=== PATIENT | male | born 1975 | race African-American/Black ===

== ENCOUNTER → 2020-02-12 13:03 | Outpatient (BNVA) | payer MEDICAID, SELFPAY | PROVIDERS: PCP Internal Medicine; Visit Provider Urology | DX: N13.2 Hydronephrosis with renal and ureteral calculous obstruction (principal) | CPT/HCPCS: 99202; 99204 ==

== ENCOUNTER 2020-03-02 06:10 | Day surgery (SDC) | payer MEDICAID, SELFPAY ==
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
--- NOTE | 2020-03-02 06:16 | XR_ITS ---
EXAMINATION: ABDOMEN 1 VIEW CLINICAL INFORMATION: Nephrolithiasis. COMPARISON: 01/14/2020. TECHNIQUE: A supine view of the abdomen is provided. FINDINGS: There are no dilated loops of small bowel. There are no air-fluid levels. There is a 2.1 cm calculus overlying the right kidney. The visualized lung bases are clear. The osseous structures are unremarkable. IMPRESSION: 2.1 cm calculus overlying the right kidney. Unremarkable bowel gas pattern.
[2020-03-02 06:53] VITALS: BMI 64.0
[2020-03-02 06:59] VITALS: BP 159/86; PULSE 101; RESP 18; TEMP 37.4; O2SAT 96
[2020-03-02] MEDS: levoFLOXacin 500 MG TABLET PO (07:08)
[2020-03-02] MEDS: Lactated Ringers 1,000 ML 100 ML IVCONT (07:24)
--- NOTE | 2020-03-02 07:27 | MHC.SHP ---
Pre-Procedural Eval Section A The patient is an INPATIENT: No Changes since office visit: No Cold of Flu in the past 2 weeks, No New Medical Problems, No Changes in Medication and No Patient answered all questions The History & Physical has been completed within 30 days and I have reviewed it.: Yes Section B Chief Complaint: right kidney calculus Allergies: Allergies Allergy/AdvReac Type Severity Reaction Status Date / Time No Known Allergies Allergy Unverified 01/28/20 19:42 [No Known Allergies*] Plan Patient has been examined and remains a candidate for the planned procedure
--- NOTE | 2020-03-02 07:55 | PM.OP ---
Brief Operative Note Date of procedure: 03/02/20 Pre-op diagnosis: Right 2cm stone Post-op diagnosis: same Procedure: right ESWL and right stent placement Implants: 6 Fr x 24 cm stent Surgeon: Jaren Pettit MD Anesthesia: GLMA Estimated blood loss (mL): 0 Pathology: none sent Condition: stable Disposition: same day
[2020-03-02 08:16] VITALS: BP 111/74; PULSE 86; RESP 16; TEMP 36.9; O2SAT 94
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
[2020-03-02 08:21] VITALS: BP 133/88; PULSE 97; RESP 16; O2SAT 95
[2020-03-02 08:26] VITALS: BP 153/98; PULSE 97; RESP 16; O2SAT 94
[2020-03-02 08:31] VITALS: BP 124/85; PULSE 95; RESP 16; O2SAT 95
[2020-03-02] MEDS: Acetaminophen 325 MG TABLET 650 MG PO (08:37)
[2020-03-02] MEDS: oxyCODONE HCl Immed Release 5 MG TABLET PO (08:38)
[2020-03-02 08:46] VITALS: BP 131/84; PULSE 88; RESP 18; TEMP 36.9; O2SAT 95
--- NOTE | 2020-03-02 09:20 | HO.POSTANES ---
Post Anesthesia Evaluation Post Anesthesia Evaluation Vital Signs: Vital Signs Temp Pulse Resp BP Pulse Ox 03/02/20 08:46 98.4 F 88 18 131/84 95 03/02/20 08:31 95 16 124/85 95 03/02/20 08:26 97 16 153/98 H 94 03/02/20 08:21 97 16 133/88 95 03/02/20 08:16 98.4 F 86 16 111/74 94 03/02/20 06:59 99.3 F 101 H 18 159/86 H 96 Anesthesia: General LMA Mental Status: Awake Pain Control: Satisfactory Nausea/Vomiting: None Hydration: Adequate Anesthesia-Related Issues: No Anes. Related Issues
== END 2020-03-02 09:22 | disposition home or self-care (01) ==
PROVIDERS: PCP Internal Medicine; Visit Provider Urology
PROC: (CPT 50590; principal; 2020-03-02 07:30)
DX: N13.2 Hydronephrosis with renal and ureteral calculous obstruction (principal); I10 Essential (primary) hypertension; Z89.512 Acquired absence of left leg below knee; Z89.511 Acquired absence of right leg below knee; Z87.891 Personal history of nicotine dependence; Z79.899 Other long term (current) drug therapy
CPT/HCPCS: 50590; 52332; 74018; C1769; C2617; J1580; J1885; J2405; J3010

== ENCOUNTER → 2020-03-23 14:41 | Outpatient (BNVA) | payer MEDICAID, SELFPAY | PROVIDERS: PCP Internal Medicine; Visit Provider Nurse Practitioner | DX: Z76.89 Persons encountering health services in other specified circumstances (principal) ==

== ENCOUNTER → 2020-06-03 12:49 | Outpatient (BNVA) | payer MEDICAID, SELFPAY | PROVIDERS: PCP Internal Medicine; Visit Provider Urology ==

== ENCOUNTER 2020-06-06 07:52 | Day surgery (SDC) | payer MEDICAID, SELFPAY ==
[2020-06-06 09:42] VITALS: BP 132/88; PULSE 78; RESP 18; TEMP 36.6; O2SAT 94; BMI 30.7
[2020-06-06] MEDS: levoFLOXacin 500 MG TABLET PO (09:58)
--- NOTE | 2020-06-06 10:21 | PM.OP ---
Brief Operative Note Date of Service: 06/06/20 Pre-op diagnosis: Retained ureteric stent Post-op diagnosis: same Procedure: Cysto stent removal Surgeon: Jaren Pettit MD Anesthesia: MAC Estimated blood loss (mL): 0 Pathology: none sent Condition: stable Disposition: same day
--- NOTE | 2020-06-06 10:22 | P.HPSUR_ITS ---
Pre-Procedural Eval Section B Chief Complaint: kidney stone Details of Present Illness: Prior ESWL on right side with indwelling stent. This happen in February Presents for stent removal today Relevant Family History (Specify if Yes): No Relevant Social History: None Present Medications: None Medical History: No relevant PMH History of Previous Operations: Relevant previous surgery/procedure and date(s) Allergies: Allergies Allergy/AdvReac Type Severity Reaction Status Date / Time No Known Allergies Allergy Verified 06/06/20 09:16 [No Known Allergies*] Review of Systems Sugical H&P ROS: Negative: Constitution, Cardiovascular, Respiratory, Neuro logical, Psychiatric, Hem-Onc, Allergic/Immunologic, Gastrointestinal, Genitourinary, Musculoskeletal, Integumentary, Endocrine and Eyes/Ears/Nose/Throat Exam Surgical H&P Exam: Normal: HEENT, Normal: Heart, Normal: Lungs, Normal: Extremities, Normal: Abdomen, Normal: Skin and Normal: Neurological Plan Diagnosis/Plan: Unchanged I have reviewed the history and physical and performed a pertinent physical examination on my patient. No changes have occurred unless specified. Cystoscopy removal of right stent
--- NOTE | 2020-06-06 10:48 | W.PM.OPN ---
Operative Note Operative Note Date of Service: 06/06/20 Narrative: PreOperative Diagnosis: Renal stone with retained right stent Post Operative Diagnosis: Renal stone with retained right stent Procedure: Cystoscopy with right stent Surgeon: Dr Jaren Pettit Anesthesia: Sedation Indications for procedure: This is a 44-year-old male. Underwent ESWL for 2 cm stone back in February however he did not follow-up. He presented to the office in is here for stent removal today. 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 anesthesia was administered per protocol. He was prepped and draped in sterile fashion. A safety pause time-out performed Flexible cystoscope was inserted per urethra. No abnormality noted in the anterior posterior urethra. Bladder was entered. Stent was visible in position on right side. There was some bladder debris. Stent was grasped and removed. He tolerated procedure well was transferred back to the recovery area Pathology: None Drains: None
[2020-06-06 10:50] VITALS: BP 114/66; PULSE 78; RESP 16; TEMP 36.6; O2SAT 92
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
[2020-06-06 11:05] VITALS: BP 123/79; PULSE 74; RESP 18; O2SAT 98
[2020-06-06 11:20] VITALS: BP 114/73; PULSE 72; RESP 16; O2SAT 98
[2020-06-06 11:35] VITALS: BP 122/76; PULSE 70; RESP 18; O2SAT 99
[2020-06-06 11:50] VITALS: BP 127/78; PULSE 77; RESP 16; O2SAT 99
--- NOTE | 2020-06-06 12:14 | HO.POSTANES ---
Post Anesthesia Evaluation Post Anesthesia Evaluation Vital Signs: Vital Signs Temp Pulse Resp BP Pulse Ox 06/06/20 11:50 97.9 F 77 16 127/78 99 06/06/20 11:35 70 18 122/76 99 06/06/20 11:20 72 16 114/73 98 06/06/20 11:05 74 18 123/79 98 06/06/20 10:50 97.9 F 78 16 114/66 92 06/06/20 09:42 97.9 F 78 18 132/88 94 Anesthesia: Monitored Mental Status: Awake Pain Control: Satisfactory Nausea/Vomiting: None Hydration: Adequate Anesthesia-Related Issues: No Anes. Related Issues
== END 2020-06-06 12:37 | disposition home or self-care (01) ==
PROVIDERS: PCP Internal Medicine; Visit Provider Urology
PROC: (CPT 52310; principal; 2020-06-06 10:20)
DX: N20.0 Calculus of kidney (principal); Z96.0 Presence of urogenital implants; Z89.512 Acquired absence of left leg below knee; Z89.511 Acquired absence of right leg below knee; J45.909 Unspecified asthma, uncomplicated; I10 Essential (primary) hypertension; F32.9 Major depressive disorder, single episode, unspecified; B19.20 Unspecified viral hepatitis C without hepatic coma; F17.290 Nicotine dependence, other tobacco product, uncomplicated; F11.20 Opioid dependence, uncomplicated; Z79.899 Other long term (current) drug therapy
CPT/HCPCS: 52310

== ENCOUNTER 2020-06-14 17:36 | Inpatient (IN) | payer MEDICAID, SELFPAY ==
--- NOTE | ~2020-06-14 | FL_ITS ---
EXAMINATION: XR FLUOROSCOPY WITH IMAGES CLINICAL INFORMATION: CYSTOSCOPY, URETEROSCOPY, RETRO, LASER (RIGHT) COMPARISON: CT abdomen pelvis 06/14/2020 TECHNIQUE: Fluoroscopy performed by Dr. Pettit. Fluoroscopy time: 77.3 seconds DAP: 31.8 mGy Images: 2 FINDINGS: Focal spot view over the kidney and another pelvis demonstrates a double-J stent in the right renal collecting system FL/FL guidance in OR IMPRESSION: Double-J stent in right collecting system.
[2020-06-14 18:24] VITALS: BP 138/79; PULSE 114; RESP 20; O2SAT 98; BMI 27.8
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
[2020-06-14 18:54] LABS: MANUAL DIFF FLAG NO
[2020-06-14 18:56] LABS: Basophils Percent Auto 0.1 % (0-2); Eosinophils Percent Auto 0.1 % (0-4); Hematocrit 40.2 % (42-52); Hemoglobin 12.9 g/dl (14.0-18.0); Imm Gran Pct Auto 0.6 % (0.0-0.4); Lymphocytes Absolute Auto 0.8 X10*3/uL (1.2-4.9); Lymphocytes Percent Auto 4.9 % (20-40); Mean Corpuscular HGB Conc 32.1 g/dl (31.0-36.0); Mean Corpuscular Hemoglobin 25.7 pg (27.0-33.0); Mean Corpuscular Volume 80.1 fL (80-98); Mean Platelet Volume 9.7 fL (9.4-12.4); Monocytes Absolute Auto 0.7 X10*3/uL (0.1-1.2); Monocytes Percent Auto 4.5 % (2-11); Neutrophils Absolute Auto 14.9 X10*3/uL (2.0-8.3); Neutrophils Percent Auto 89.8 % (45-73); Platelet Count 315 X10*3/uL (160-400); Red Blood Count 5.02 X10*6/uL (4.60-5.80); Red Cell Distribution Width 14.4 % (11.0-16.0); White Blood Count 16.6 X10*3/uL (4.8-10.8)
[2020-06-14 19:01] LABS: INTERNATIONAL NORM RATIO 1.4 (0.9-1.1); Prothrombin Time 17.1 SEC (10.8-13.0)
[2020-06-14 19:04] LABS: Partial Thromboplastin Time 36.1 SEC (24.1-38.0)
[2020-06-14 19:23] LABS: Alanine Aminotransferase 36 U/L (0-40); Albumin Level 4.3 g/dL (3.5-5.0); Alkaline Phosphatase 102 U/L (39-117); Anion Gap 16 (12-20); Aspartate Amino Transferase 22 U/L (5-37); Bilirubin Direct 0.2 mg/dL (0.0-0.5); Bilirubin Total 0.5 mg/dL (0.0-1.0); Blood Urea Nitrogen 13 mg/dL (9-16); Calcium 9.1 mg/dL (8.4-10.2); Carbon Dioxide 24 mmol/L (22-29); Chloride 100 mmol/L (96-108); Creatinine Clr Calc Pharmacy 96.4; Estimated Glomerular Filt Rate > 60; Glucose Random 155 mg/dL (60-115); Lipase 13 U/L (8-78); Potassium 3.6 mmol/L (3.3-5.1); Sodium 136 mmol/L (135-145); Total Protein 8.5 g/dL (6.5-8.0)
--- NOTE | 2020-06-14 20:40 | PC.NURSE ---
c/o left flank pain. feels like a kidney stone . had a kidney proceedure on .
[2020-06-14 20:41] LABS: Basophils Percent Auto 0.1 % (0-2); Hematocrit 39.6 % (42-52); Imm Gran Abs Auto 0.12 X10*3/uL (0.00-0.03); Imm Gran Pct Auto 0.6 % (0.0-0.4); Lymphocytes Absolute Auto 0.9 X10*3/uL (1.2-4.9); Lymphocytes Percent Auto 4.3 % (20-40); MANUAL DIFF FLAG SCAN; Mean Corpuscular HGB Conc 32.8 g/dl (31.0-36.0); Mean Corpuscular Hemoglobin 26.3 pg (27.0-33.0); Mean Platelet Volume 9.3 fL (9.4-12.4); Monocytes Absolute Auto 1.5 X10*3/uL (0.1-1.2); Monocytes Percent Auto 7.6 % (2-11); Neutrophils Absolute Auto 17.7 X10*3/uL (2.0-8.3); Neutrophils Percent Auto 87.4 % (45-73); Platelet Count 315 X10*3/uL (160-400); Red Blood Count 4.95 X10*6/uL (4.60-5.80); Red Cell Distribution Width 14.2 % (11.0-16.0); SCAN SMEAR FLAG 1; White Blood Count 20.3 X10*3/uL (4.8-10.8)
--- NOTE | 2020-06-14 20:59 | CT_ITS ---
EXAMINATION: CT ABDOMEN AND PELVIS WITHOUT CONTRAST CLINICAL INFORMATION: R flank pain, s/p stent removal . COMPARISON: 02/25/2019. TECHNIQUE: Multidetector volumetric imaging was performed from the superior aspect of the liver through the pubic symphysis without contrast per renal stone protocol. Sagittal and coronal reformatted images were obtained on the technologist workstation. This CT examination was performed using dose optimization techniques as appropriate, variously including the following: *Automated exposure control *Adjustment of mA and/or kV according to patient size (this includes techniques or standardized protocols for targeted exams where dose is matched to indication/reason for exam; i.e. extremities or head) *Use of iterative reconstruction technique DLP: 820 mGy-cm. FINDINGS: LUNG BASES: Minimal dependent atelectasis. LIVER, GALLBLADDER, BILIARY TREE: The non-contrast liver is normal in size, shape, and attenuation. No focal hepatic lesion or biliary ductal dilatation is present. The gallbladder is unremarkable with no evidence of radiopaque gallstones, gallbladder wall thickening, or obvious pericholecystic inflammatory changes. PANCREAS: Unremarkable. SPLEEN: Unremarkable. ADRENAL GLANDS: Unremarkable. KIDNEYS AND URETERS: There is right-sided hydronephrosis, hydroureter, and perinephric stranding. Dense calcification seen within the proximal right ureter near the right UPJ. This constellation measures 1.6 cm in length and approximately 0.8 cm in diameter. This measures up to 1258 Hounsfield units and is approximately 14 cm deep to the posterior skin surface. Additional intrarenal calculi seen within the right kidney including a 1.4 cm lower pole calculi and a 0.2 cm midpole calculi. Nonobstructing 4 mm intrarenal calculi in the contralateral left lower pole BLADDER: Decompressed and otherwise unremarkable GASTROINTESTINAL TRACT: Colon is mostly decompressed. Small bowel unremarkable. ABDOMINAL WALL: No significant hernia is appreciated. LYMPHOVASCULAR STRUCTURES: No lymphadenopathy. The aorta is unremarkable.. PELVIC VISCERA: Unremarkable. OSSEUS STRUCTURES: Unremarkable. CT/CT abdomen pelvis wo con IMPRESSION: Structure changes to the right kidney described above. There is a large calcification within the proximal right ureter near the expected right ureteropelvic junction. On the prior CT scan this calculi was in the renal pelvis and has now moved distally. Ureter distal to the stone is mildly prominent but I do not appreciate any more distal calculi. Additional nonobstructing intrarenal calculi bilaterally.
[2020-06-14 21:00] LABS: Alanine Aminotransferase 36 U/L (0-40); Albumin Level 4.4 g/dL (3.5-5.0); Alkaline Phosphatase 100 U/L (39-117); Anion Gap 15 (12-20); Aspartate Amino Transferase 22 U/L (5-37); Bilirubin Direct 0.3 mg/dL (0.0-0.5); Bilirubin Total 0.6 mg/dL (0.0-1.0); Blood Urea Nitrogen 13 mg/dL (9-16); Carbon Dioxide 26 mmol/L (22-29); Chloride 100 mmol/L (96-108); Creatinine Clr Calc Pharmacy 96.4; Estimated Glomerular Filt Rate > 60; Glucose Random 127 mg/dL (60-115); Lipase 14 U/L (8-78); Potassium 3.6 mmol/L (3.3-5.1); Sodium 137 mmol/L (135-145); Total Protein 8.5 g/dL (6.5-8.0)
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
[2020-06-14 21:03] LABS: SLIDE REVIEW VERIFIED
[2020-06-14] MEDS: Ketorolac Tromethamine 30 MG/ML VIAL IVPUSH (21:30)
[2020-06-14] MEDS: 0.9 % Sodium Chloride 1,000 ML 999 ML IVCONT ×3 (21:30→22:47)
[2020-06-14] MEDS: ondansetron HCL 4 MG/2 ML VIAL IVPUSH (21:30)
[2020-06-14] MEDS: cefTRIAXone sodium 1 GM in 0.9 % Sodium Chloride 50 ML IV (22:00)
[2020-06-14 22:01] VITALS: TEMP 38.7
[2020-06-14] MEDS: Acetaminophen 325 MG TABLET 650 MG PO (22:13)
[2020-06-14 23:01] LABS: Appearance Urine CLEAR; Color Urine YELLOW; Glucose Urine UA NEG (NEG); Leukocyte Esterase Urine 1+ (NEG); Nitrite Urine NEG (NEG); UACC Culture Trigger YES; Urine Blood TRACE (NEG); Urine Ketones NEG (NEG); Urine Protein NEG (NEG-TRACE)
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
[2020-06-14 23:10] LABS: Bacteria Urine 1+ /LPF; RBC Urine 0-2 /HPF (0); Squamous Epithelial Cell Urine TRACE /LPF
[2020-06-14 23:14] LABS: COVID-19 Test Negative (Negative); IDNOW Serial# 9DD0AD1C
[2020-06-14 23:58] VITALS: BP 120/76; PULSE 93; RESP 18; O2SAT 96
[2020-06-14] MEDS: HYDROmorphone HCl 0.5 MG/0.5 ML SYRINGE SUBCUT (23:59)
[2020-06-15] VITALS (9 sets, daily range): BP systolic 116–146; BP diastolic 67–89; PULSE 85–101; RESP 14–18; TEMP 36.6–37.7; O2SAT 87–97
[2020-06-15] MEDS: 0.9 % Sodium Chloride Flush 3 ML SYRINGE IVFLUSH ×2 (00:04→16:45)
[2020-06-15] MEDS: Dextrose 5 % and 0.9 % NaCl 1,000 ML 100 ML IVCONT ×3 (00:33→20:19)
--- NOTE | 2020-06-15 02:22 | PC.NURSE ---
PT HAD STATED TO ED MD THAT HE DOES NOT WANT OPIATES, BECAUSE HE IS ON METHADONE. HOSPITALIST ORDERED DILAUDID AND PT WAS ADMINISTERED 0.5 MG. WILL CALL HOSPITALIST TO ASK TO CANCEL ORDER.
[2020-06-15] MEDS: Ketorolac Tromethamine 15 MG/ML VIAL IV ×4 (04:06→23:20)
--- NOTE | 2020-06-15 05:21 | PC.NURSE ---
PT HAD ONE EPISODE OF VOMITING APROX 1 HOUR AGO, SMALL AMOUNT OF WATER. PT NOW ASKING FOR WATER, GIVEN ICE CHIPS. BOTH LOWER LEG PROSTHETICS AND PT'S OWN WC IN ROOM WITH HIM.
--- NOTE | 2020-06-15 06:37 | PC.NURSE ---
PT ASKING FOR HIS METHADONE, HOSPITALIST DID NOT INCLUDE ON MAR.
[2020-06-15 07:19] LABS: Basophils Percent Auto 0.1 % (0-2); Hematocrit 36.2 % (42-52); Hemoglobin 11.9 g/dl (14.0-18.0); Imm Gran Pct Auto 2.7 % (0.0-0.4); Lymphocytes Absolute Auto 1.6 X10*3/uL (1.2-4.9); Lymphocytes Percent Auto 7.1 % (20-40); MANUAL DIFF FLAG SCAN; Mean Corpuscular HGB Conc 32.9 g/dl (31.0-36.0); Mean Corpuscular Hemoglobin 26.4 pg (27.0-33.0); Mean Corpuscular Volume 80.4 fL (80-98); Mean Platelet Volume 9.9 fL (9.4-12.4); Monocytes Absolute Auto 1.5 X10*3/uL (0.1-1.2); Monocytes Percent Auto 6.9 % (2-11); Neutrophils Absolute Auto 18.3 X10*3/uL (2.0-8.3); Neutrophils Percent Auto 83.2 % (45-73); Platelet Count 284 X10*3/uL (160-400); Red Cell Distribution Width 14.4 % (11.0-16.0); SCAN SMEAR FLAG 1
[2020-06-15 07:39] LABS: Anion Gap 12 (12-20); Blood Urea Nitrogen 10 mg/dL (9-16); Carbon Dioxide 25 mmol/L (22-29); Chloride 105 mmol/L (96-108); Creatinine Clr Calc Pharmacy 117.9; Estimated Glomerular Filt Rate > 60; Glucose Random 118 mg/dL (60-115); Potassium 3.4 mmol/L (3.3-5.1); Sodium 139 mmol/L (135-145)
[2020-06-15 07:48] LABS: Calcium 8.1 mg/dL (8.4-10.2)
--- NOTE | 2020-06-15 08:18 | PC.NURSE ---
report taken from [facility] pt here for urological issues. admitted pt, sitting up in stretcher, appears to be in pain. asking for methadone, dose confirmed w clinic, confirmed by pharmacy ordered by physician. pt given po methadone, tolerating po w/o issue. wctm.
[2020-06-15] MEDS: traMADoL HCL 50 MG TABLET PO ×2 (08:39→14:59)
[2020-06-15 09:06] LABS: SLIDE REVIEW VERIFIED
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
[2020-06-15] MEDS: amLODIPine Besylate 10 MG TABLET PO (10:41)
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
--- NOTE | 2020-06-15 11:30 | PC.NURSE ---
INTRODUCED SELF TO PT, APPEARS IMPAIRED, SLIGHTLY SOMNOLENT THOUGH EASILY ROUSED. PLACED ON 2L O2 AFTER 87% ON RA. RR WNL. MEDICATED 3 HRS AGO WITH MTD. WILL CONTINUE TO MONITOR.
--- NOTE | 2020-06-15 14:48 | MHC.CM.PN ---
EMR REVIEWED, PT ADMITTED W/R SIDED FLANK PAIN & NV, PT TO HAVE URETEROSCOPY AND STONE REMOVAL ON 06/16/20, CM MET WITH [employer] TEAM LEAD & PT WHO IS ALERT AND ORIENTED AND REPORTS HE LIVES WITH HIS SISTER WHO IS HIS [employer], PT DOES NEED ASSISTANCE AT HOME AND REPORTS HIS SISTER DOES EVERYTHING FOR HIM, PT ALSO REPORTS HE HAS A VNA THROUGH HIS INSURANCE HOWEVER DOES NOT RECALL THE NAME OF THE VNA SERVICE, PT REPORTS THE ONLY DME HE HAS AT HOME IS A WHEELCHAIR, PT ABLE TO VERIFY PCP AND PHARMACY, PT REPORTS HIS SISTER IS HIS HEALTHCARE PROXY HOWEVER DOES NOT NO WHERE TO LOCATE A COPY, CM WILL CONTACT PCP FOR VNA INFORMATION AND POSSIBLE HCP ON FILE. DISCHARGE PLAN: HOME W/RESUMPTION OF VNA AND [employer] HRS THROUGH [facility], SISTER TO TRANSPORT PT. SISTER- ROXANNE [phone] PCP- DR LES BRAUN
--- NOTE | 2020-06-15 15:06 | PC.NURSE ---
RECEIVED CALL FROM PTS NIECE, SHE REQUESTED THAT HE BE GIVEN LUNCH. PT HAS EATEN TODAY, AND HAS BEEN ASLEEP FOR MOST OF THIS MORNING. TALKED WITH PT, HE REQUESTED THAT WE NOT ACCEPT CALLS FROM HIS NIECE.
--- NOTE | 2020-06-15 15:14 | MHC.CM.PN ---
PER PT'S PCP OFFICE PT HAS [facility] FOR [facility] SERVICES, MESSAGE LEFT WITH [facility] TO [facility] AND SERVICES PT CURRENTLY HAS. PCP DOES NOT HAVE A HCP ON FILE.
--- NOTE | 2020-06-15 15:56 | MHC.CM.PN ---
REFERRAL SENT FOR RESUMPTION OF CARE WITH [facility].
[2020-06-15] MEDS: cefTRIAXone sodium 1 GM in 0.9 % Sodium Chloride 50 ML IV (20:19)
[2020-06-16] VITALS (15 sets, daily range): BP systolic 113–155; BP diastolic 69–90; PULSE 77–122; RESP 16–18; TEMP 36.3–38; O2SAT 92–99
[2020-06-16] MEDS: Sennosides 8.6 MG TABLET PO (00:02)
[2020-06-16] MEDS: Acetaminophen 325 MG TABLET 650 MG PO ×2 (04:20→18:24)
[2020-06-16] MEDS: Ketorolac Tromethamine 15 MG/ML VIAL IV ×3 (05:49→19:33)
[2020-06-16] MEDS: Dextrose 5 % and 0.9 % NaCl 1,000 ML 100 ML IVCONT (05:54)
[2020-06-16] MEDS: amLODIPine Besylate 10 MG TABLET PO (09:18)
[2020-06-16] MEDS: 0.9 % Sodium Chloride Flush 3 ML SYRINGE IVFLUSH (09:20)
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
[2020-06-16 10:25] LABS: Hematocrit 35.6 % (42-52); Hemoglobin 11.5 g/dl (14.0-18.0); Mean Corpuscular HGB Conc 32.3 g/dl (31.0-36.0); Mean Corpuscular Hemoglobin 26.2 pg (27.0-33.0); Mean Corpuscular Volume 81.1 fL (80-98); Mean Platelet Volume 9.5 fL (9.4-12.4); Platelet Count 243 X10*3/uL (160-400); Red Blood Count 4.39 X10*6/uL (4.60-5.80); Red Cell Distribution Width 14.6 % (11.0-16.0); White Blood Count 16.1 X10*3/uL (4.8-10.8)
[2020-06-16] MEDS: Milk of Magnesia 30 ML ORAL.SUSP PO (12:49)
--- NOTE | 2020-06-16 13:08 | PM.UROPN ---
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 procedure Will have right-sided ureteroscopy laser lithotripsy this afternoon Questions answered Physical Exam Vital Signs: Vital Signs: Last Vital Signs Temp 98 F 06/16/20 11:53 Pulse 87 06/16/20 11:53 Resp 17 06/16/20 11:53 BP 133/78 06/16/20 11:53 Pulse Ox 94 06/16/20 11:53 Body Mass Index 27.8 Const: General: cooperative, healthy appearing, comfortable and no acute distress Nutritional Appearance: average body habitus Orientation/consciousness: oriented to person, oriented to place and oriented to time Eyes: General: appearance normal, both eyes and all related structures Chest: Chest palpation & inspection: normal inspection of the chest Resp: Effort & Inspection: normal respiratory effort Cardio: Rate: regular rate GI: Inspection: Yes normal to inspection Skin: Hair: normal Neuro: General: oriented to person, oriented to place and oriented to time Extrem: General: Yes normal to inspection Urology Results Labs CBC & Chem 7: 06/16/20 10:03 06/15/20 06:49 Labs: Laboratory Results - last 24 hr 06/16/20 10:03 WBC 16.1 H RBC 4.39 L Hgb 11.5 L Hct 35.6 L MCV 81.1 MCH 26.2 L MCHC 32.3 RDW 14.6 Plt Count 243 MPV 9.5 Absolute Nucleated RBC 0.000 Nucleated RBC % (auto) 0.0 Progress Note: A&P Assessment and plan (1) Kidney stone: Status: Acute (2) Hydronephrosis: Status: Acute Fall Risk Details Current Medications: Current Medications Generic Name Dose Route Start Last Admin Trade Name Freq PRN Reason Stop Dose Admin Acetaminophen 650 mg 06/16/20 04:08 06/16/20 04:20 Acetaminophen 325 Mg Tablet PO 650 mg Q6H PRN Administration Pain, Mild (Pain Scale 1-3) Amlodipine Besylate 10 mg 06/15/20 09:00 06/16/20 09:18 Amlodipine Besylate 10 Mg Tablet PO 10 mg DAILY ANDREW Administration Protocol Dextrose/Sodium Chloride 1,000 mls @ 100 mls/hr 06/14/20 23:15 06/16/20 05:54 D5ns IVCONT 100 mls/hr .Q10H ANDREW Administration Ceftriaxone Sodium 1 gm/ 50 mls @ 100 mls/hr 06/15/20 21:00 06/15/20 21:17 Sodium Chloride IV Infused Q24H ANDREW Infusion Ketorolac Tromethamine 15 mg 06/15/20 02:55 06/16/20 12:49 Ketorolac Tromethamine 15 Mg/Ml Vial IV 15 mg Q6H PRN Administration Breakthrough Pain Magnesium Hydroxide 30 ml 06/16/20 12:24 06/16/20 12:49 Milk Of Magnesia 30 Ml Oral.Susp PO 30 ml BID PRN Administration Constipation Methadone HCl 90 mg 06/16/20 09:00 06/16/20 09:18 Methadone Hcl 1 Mg/0.1 Ml Oral.Conc PO 90 mg DAILY ANDREW Administration Polyethylene Glycol 17 gm 06/16/20 12:24 Polyethylene Glycol 3350 17 Gm Powd.Pack PO DAILY PRN Constipation Senna 8.6 mg 06/15/20 23:50 06/16/20 00:02 Sennosides 8.6 Mg Tablet PO 8.6 mg Q24H PRN Administration Constipation Sodium Chloride 3 ml 06/15/20 00:00 06/16/20 09:20 0.9 % Sodium Chloride Flush 3 Ml Syringe IVFLUSH 3 ml QSHIFT ANDREW Administration Tramadol HCl 50 mg 06/15/20 08:00 06/15/20 14:59 Tramadol Hcl 50 Mg Tablet PO 50 mg Q6H PRN Administration Pain, Severe (Pain Scale 7-10) Time Spent With Patient Time: Total time spent is greater than 50% in coordination of care (as documented) at patient's floor/unit and/or counseling patient: Time with patient: 15 - 24 minutes
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
--- NOTE | 2020-06-16 15:54 | MHC.SHP ---
Pre-Procedural Eval Section A The patient is an INPATIENT: Yes Changes since office visit: No Cold of Flu in the past 2 weeks, No New Medical Problems, No Changes in Medication and No Patient answered all questions The History & Physical has been completed within 30 days and I have reviewed it.: Yes Section B Chief Complaint: Pyelonephritis Allergies: Allergies Allergy/AdvReac Type Severity Reaction Status Date / Time No Known Allergies Allergy Verified 06/06/20 09:16 [No Known Allergies*] Plan Diagnosis/Plan: Unchanged I have reviewed the history and physical and performed a pertinent physical examination on my patient. No changes have occurred unless specified. Right retrograde, ureteroscopy, laser stent
--- NOTE | 2020-06-16 16:59 | PM.OP ---
Brief Operative Note Date of Service: 06/16/20 Pre-op diagnosis: Right proximal ureteric stones Post-op diagnosis: same Procedure: 1. Cystoscopy right retrograde 2. Ureteroscopy laser lithotripsy stone basketing of right ureteric stones 3. Ureteroscopy stone basketing of right renal stone 4 right stent placement Implants: Six Yoruba by 22 cm double-J stent Surgeon: Jaren Pettit MD Anesthesia: GLMA Estimated blood loss (mL): 0 Pathology: other (stones) Condition: stable Disposition: same day
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
[2020-06-16] MEDS: Gentamicin Sulfate/NaCl 80 MG/100 ML PIGGYBACK 100 MG IV (18:44)
[2020-06-16] MEDS: cefTRIAXone sodium 1 GM in 0.9 % Sodium Chloride 50 ML IV (20:51)
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
[2020-06-17] MEDS: Dextrose 5 % and 0.9 % NaCl 1,000 ML 100 ML IVCONT ×2 (03:02→13:21)
--- NOTE | 2020-06-17 06:30 | PC.NURSE ---
while pt was voiding this morning a piece of black thread came out of his meatus that was about 10 cm long. pt was worried about it and asked me to cut it because it was getting caught in his boxers when he moved. i cut about 7 cm off, with 2-3 cm still left hanging out. [facility] message sent to dr. celis. dr celis is aware.
[2020-06-17 07:35] VITALS: BP 126/76; PULSE 84; RESP 18; TEMP 36.4; O2SAT 94
[2020-06-17] MEDS: Ketorolac Tromethamine 15 MG/ML VIAL IV ×2 (07:48→19:31)
[2020-06-17] MEDS: 0.9 % Sodium Chloride Flush 3 ML SYRINGE IVFLUSH ×2 (07:48→21:10)
[2020-06-17] MEDS: amLODIPine Besylate 10 MG TABLET PO (07:48)
[2020-06-17 08:17] LABS: Hematocrit 35.8 % (42-52); Hemoglobin 11.5 g/dl (14.0-18.0); Mean Corpuscular HGB Conc 32.1 g/dl (31.0-36.0); Mean Corpuscular Hemoglobin 25.9 pg (27.0-33.0); Mean Corpuscular Volume 80.6 fL (80-98); Platelet Count 254 X10*3/uL (160-400); Red Blood Count 4.44 X10*6/uL (4.60-5.80); Red Cell Distribution Width 14.7 % (11.0-16.0); White Blood Count 18.4 X10*3/uL (4.8-10.8)
[2020-06-17 08:39] LABS: Anion Gap 12 (12-20); Blood Urea Nitrogen 13 mg/dL (9-16); Calcium 8.4 mg/dL (8.4-10.2); Carbon Dioxide 26 mmol/L (22-29); Chloride 102 mmol/L (96-108); Creatinine Clr Calc Pharmacy 127.4; Estimated Glomerular Filt Rate > 60; Glucose Random 144 mg/dL (60-115); Potassium 3.8 mmol/L (3.3-5.1); Sodium 136 mmol/L (135-145)
--- NOTE | 2020-06-17 09:25 | HO.POSTANES ---
Post Anesthesia Evaluation Post Anesthesia Evaluation Vital Signs: Vital Signs Temp Pulse Resp BP Pulse Ox 06/17/20 07:35 97.6 F 84 18 126/76 94 06/16/20 23:30 97.4 F 80 16 113/69 92 Anesthesia: General Mental Status: Awake Pain Control: Satisfactory Nausea/Vomiting: None Hydration: Adequate Anesthesia-Related Issues: No Anes. Related Issues
--- NOTE | 2020-06-17 10:19 | MHC.IC ---
Notified by Microbiology lab that patient has potential CRE in blood and urine. Patient placed on Contact Precautions. Spoke with WINIFRED Roger and explained results and need for strict contact isolation due to resistance of this pathogen.
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
[2020-06-17 10:47] VITALS: BP 129/65; PULSE 81; RESP 18; TEMP 36.6; O2SAT 96
[2020-06-17] MEDS: Docusate Sodium 100 MG CAPSULE PO ×2 (11:02→21:10)
[2020-06-17] MEDS: bisacodyL 5 MG TABLET.DR 10 MG PO (11:02)
[2020-06-17] MEDS: Doxycycline Hyclate 100 MG in 0.9 % Sodium Chloride 250 ML 166.67 MG IV ×2 (11:02→21:14)
--- NOTE | 2020-06-17 12:49 | MHC.CM.PN ---
PER HOSPITALIST ROUNDS, PLAN IS FOR PATIENT TO REMAIN OVER THE WEEKEND FOR HIS IV ABX.
[2020-06-17 15:19] VITALS: BP 124/73; PULSE 77; RESP 18; TEMP 36.5; O2SAT 92
[2020-06-17 15:41] VITALS: O2SAT 98
[2020-06-17 19:25] VITALS: BP 120/72; PULSE 81; RESP 18; TEMP 36; O2SAT 94
[2020-06-17 23:20] VITALS: BP 132/79; PULSE 80; RESP 16; TEMP 36.3; O2SAT 96
[2020-06-18] MEDS: Ketorolac Tromethamine 15 MG/ML VIAL IV ×4 (02:58→21:45)
[2020-06-18 04:11] VITALS: BP 123/74; PULSE 73; RESP 18; TEMP 36.6; O2SAT 95
[2020-06-18 07:15] VITALS: BP 137/85; PULSE 78; RESP 18; TEMP 36.1; O2SAT 95
[2020-06-18] MEDS: amLODIPine Besylate 10 MG TABLET PO (08:21)
[2020-06-18] MEDS: 0.9 % Sodium Chloride Flush 3 ML SYRINGE IVFLUSH ×2 (08:25→15:52)
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
[2020-06-18] MEDS: Doxycycline Hyclate 100 MG in 0.9 % Sodium Chloride 250 ML 166.67 MG IV ×2 (10:57→22:57)
[2020-06-18 11:27] VITALS: BP 146/81; PULSE 85; RESP 18; TEMP 35.8; O2SAT 95
[2020-06-18 15:26] VITALS: BP 119/70; PULSE 86; RESP 16; TEMP 36.3; O2SAT 96
[2020-06-18 19:11] VITALS: BP 147/77; PULSE 95; RESP 15; TEMP 36.8; O2SAT 98
[2020-06-18] MEDS: Docusate Sodium 100 MG CAPSULE PO (19:55)
[2020-06-18] MEDS: bisacodyL 5 MG TABLET.DR 10 MG PO (19:56)
--- NOTE | 2020-06-18 22:29 | PM.IDPN ---
Subjective Subjective Date of Service: 06/18/20 Interval History: He has no complaints He started Vabomere today Objective Data Labs CBC & Chem 7: 06/17/20 08:06 06/17/20 08:05 Microbiology Microbiology Results: Microbiology 06/14/20 23:03 Urine clean catch - Clean Catch Midstream Urine Culture - Preliminary Klebsiella ozaenae 06/14/20 22:00 Blood - Venous Blood Culture - Preliminary Klebsiella ozaenae 06/14/20 22:01 Blood - Venous Blood Culture - Preliminary Klebsiella ozaenae Physical Exam Vital Signs: Vital Signs: Last Vital Signs Temp 98.2 F 06/18/20 19:11 Pulse 95 06/18/20 19:11 Resp 15 06/18/20 19:11 BP 147/77 H 06/18/20 19:11 Pulse Ox 98 06/18/20 19:11 Body Mass Index 27.8 Const: General: cooperative HENMT: Head: Yes normal to inspection Resp: Effort & Inspection: normal respiratory effort Cardio: Rate: regular rate Rhythm: regular rhythm GI: Palpation (GI): Soft to palpation and nontender Skin: General skin exam: no rashes or lesions noted Assessment and Plan Assessment and plan (1) Hydronephrosis: Problem details: Possibly urine sourc 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
[2020-06-18 23:35] VITALS: BP 127/83; PULSE 82; RESP 18; TEMP 36.8; O2SAT 95
[2020-06-19] VITALS (8 sets, daily range): BP systolic 118–140; BP diastolic 80–85; PULSE 72–85; RESP 12–18; TEMP 36.1–36.8; O2SAT 96–98
[2020-06-19] MEDS: 0.9 % Sodium Chloride Flush 3 ML SYRINGE IVFLUSH ×3 (00:31→17:37)
[2020-06-19] MEDS: Ketorolac Tromethamine 15 MG/ML VIAL IV ×3 (03:09→23:33)
[2020-06-19] MEDS: amLODIPine Besylate 10 MG TABLET PO (07:58)
[2020-06-19] MEDS: Acetaminophen 325 MG TABLET 650 MG PO (08:39)
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
[2020-06-19] MEDS: Doxycycline Hyclate 100 MG in 0.9 % Sodium Chloride 250 ML 166.67 MG IV ×2 (10:52→23:34)
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
[2020-06-20] VITALS (7 sets, daily range): BP systolic 121–153; BP diastolic 77–93; PULSE 76–98; RESP 12–19; TEMP 35.9–36.7; O2SAT 95–100
[2020-06-20] MEDS: 0.9 % Sodium Chloride Flush 3 ML SYRINGE IVFLUSH ×3 (00:58→15:34)
[2020-06-20] MEDS: HYDROmorphone HCl 0.5 MG/0.5 ML SYRINGE IVPUSH (05:52)
[2020-06-20] MEDS: amLODIPine Besylate 10 MG TABLET PO (08:14)
[2020-06-20 09:13] LABS: Hematocrit 39.7 % (42-52); Hemoglobin 12.8 g/dl (14.0-18.0); Mean Corpuscular HGB Conc 32.2 g/dl (31.0-36.0); Mean Corpuscular Volume 80.5 fL (80-98); Mean Platelet Volume 9.9 fL (9.4-12.4); Platelet Count 336 X10*3/uL (160-400); Red Blood Count 4.93 X10*6/uL (4.60-5.80); White Blood Count 11.3 X10*3/uL (4.8-10.8)
[2020-06-20 09:44] LABS: Anion Gap 16 (12-20); Blood Urea Nitrogen 11 mg/dL (9-16); Calcium 9.2 mg/dL (8.4-10.2); Carbon Dioxide 27 mmol/L (22-29); Chloride 101 mmol/L (96-108); Estimated Glomerular Filt Rate > 60; Glucose Random 82 mg/dL (60-115); Potassium 4.1 mmol/L (3.3-5.1); Sodium 140 mmol/L (135-145)
[2020-06-20] MEDS: Doxycycline Hyclate 100 MG in 0.9 % Sodium Chloride 250 ML 166.67 MG IV (10:46)
--- NOTE | 2020-06-20 11:42 | MHC.CM.PN ---
PER HOSPITALIST ROUNDS, CURRENTLY AWAITING SENSITIVITY RESULTS. ONCE DONE, PATIENT CAN DC AND MAY NEED PICC FOR LT IV ABX. CASE MANAGEMENT FOLLOWING.
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
--- NOTE | 2020-06-20 13:41 | P.PNUR_ITS ---
Subjective Subjective Date of Service: 06/20/20 Interval history: 44-year-old male Urosepsis following stone procedure and stent placement Remains here for IV antibiotic administration due to narrow sensitivity results from culture Physical Exam Vital Signs: Vital Signs: Last Vital Signs Temp 97.9 F 06/20/20 11:30 Pulse 81 06/20/20 11:30 Resp 16 06/20/20 11:30 BP 131/85 06/20/20 11:30 Pulse Ox 95 06/20/20 11:30 Body Mass Index 27.8 Const: General: cooperative, healthy appearing, comfortable and no acute distress Nutritional Appearance: average body habitus Orientation/consciousness: oriented to person, oriented to place and oriented to time Eyes: General: appearance normal, both eyes and all related structures Chest: Chest palpation & inspection: normal inspection of the chest Resp: Effort & Inspection: normal respiratory effort Cardio: Rate: regular rate GI: Inspection: Yes normal to inspection Skin: Hair: normal Neuro: General: oriented to person, oriented to place and oriented to time Extrem: General: Yes normal to inspection Urology Results Labs CBC & Chem 7: 06/20/20 07:59 06/20/20 07:59 Labs: Laboratory Results - last 24 hr 06/20/20 06/20/20 07:59 07:59 WBC 11.3 H RBC 4.93 Hgb 12.8 L Hct 39.7 L MCV 80.5 MCH 26.0 L MCHC 32.2 RDW 15.0 Plt Count 336 D MPV 9.9 Absolute Nucleated RBC 0.000 Nucleated RBC % (auto) 0.0 Sodium 140 Potassium 4.1 Chloride 101 Carbon Dioxide 27 Anion Gap 16 BUN 11 Creatinine 0.77 Estim Creat Clear Calc 144.0 Estimated GFR > 60 Random Glucose 82 D Calcium 9.2 D Progress Note: A&P Assessment and plan (1) Sepsis: Status: Acute (2) Acute pyelonephritis: Problem details: Slowly resolving pyelonephritis with slowly decreasing will white count Status: Acute Assessment and Plan: Continue with antibiotics for total of 14 days Will require procedure for stent removal in stone clean up in 2-3 weeks Fall Risk Details Current Medications: Current Medications Generic Name Dose Route Start Last Admin Trade Name Freq PRN Reason Stop Dose Admin Acetaminophen 650 mg 06/16/20 04:08 06/19/20 08:39 Acetaminophen 325 Mg Tablet PO 650 mg Q6H PRN Administration Pain, Mild (Pain Scale 1-3) Amlodipine Besylate 10 mg 06/15/20 09:00 06/20/20 08:14 Amlodipine Besylate 10 Mg Tablet PO 10 mg DAILY ANDREW Administration Protocol Bisacodyl 10 mg 06/17/20 10:35 06/18/20 19:56 Bisacodyl 5 Mg Tablet.Dr PO 10 mg DAILY PRN Administration Constipation Docusate Sodium 100 mg 06/17/20 10:45 06/20/20 08:15 Docusate Sodium 100 Mg Capsule PO Not Given BID [facility] Promethazine HCl 12.5 mg/ 50.5 mls @ 202 mls/hr 06/16/20 15:41 Sodium Chloride IV ONCE PRN Nausea and Vomiting Doxycycline Hyclate 100 mg/ 250 mls @ 166.67 mls/hr 06/17/20 10:45 06/20/20 12:21 Sodium Chloride IV Infused Q12H [facility] Infusion Meropenem/Vaborbactam 4 gm/ 250 mls @ 83.333 mls/hr 06/17/20 19:00 06/20/20 12:24 Sodium Chloride IV 83.33 mls/hr Q8H ANDREW Administration Magnesium Hydroxide 30 ml 06/16/20 12:24 06/16/20 12:49 Milk Of Magnesia 30 Ml Oral.Susp PO 30 ml BID PRN Administration Constipation Methadone HCl 90 mg 06/16/20 09:00 06/20/20 08:13 Methadone Hcl 1 Mg/0.1 Ml Oral.Conc PO 90 mg DAILY ANDREW Administration Ondansetron HCl 4 mg 06/16/20 15:41 Ondansetron Hcl 4 Mg/2 Ml Vial IVPUSH ONCE PRN Nausea and Vomiting Oxycodone HCl 10 mg 06/16/20 15:41 Oxycodone Hcl Immed Release 5 Mg Tablet PO ONCE PRN Pain, Mild (Pain Scale 1-3) Polyethylene Glycol 17 gm 06/16/20 12:24 Polyethylene Glycol 3350 17 Gm Powd.Pack PO DAILY PRN Constipation Senna 8.6 mg 06/15/20 23:50 06/16/20 00:02 Sennosides 8.6 Mg Tablet PO 8.6 mg Q24H PRN Administration Constipation Sodium Chloride 3 ml 06/15/20 00:00 06/20/20 08:12 0.9 % Sodium Chloride Flush 3 Ml Syringe IVFLUSH 3 ml QSHIFT ANDREW Administration Tramadol HCl 50 mg 06/16/20 16:58 Tramadol Hcl 50 Mg Tablet PO Q6H PRN Pain, Moderate (Pain Scale 4-6 Time Spent With Patient Time: Total time spent is greater than 50% in coordination of care (as documented) at patient's floor/unit and/or counseling patient: Time with patient: 15 - 24 minutes
[2020-06-21] VITALS (7 sets, daily range): BP systolic 115–133; BP diastolic 73–87; PULSE 73–91; RESP 14–20; TEMP 36.1–37.1; O2SAT 94–97
[2020-06-21] MEDS: Doxycycline Hyclate 100 MG in 0.9 % Sodium Chloride 250 ML 166.67 MG IV ×3 (00:41→22:50)
[2020-06-21] MEDS: Acetaminophen 325 MG TABLET 650 MG PO (06:48)
[2020-06-21] MEDS: amLODIPine Besylate 10 MG TABLET PO (08:32)
[2020-06-21] MEDS: 0.9 % Sodium Chloride Flush 3 ML SYRINGE IVFLUSH ×3 (08:33→21:38)
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
--- NOTE | 2020-06-21 16:04 | MHC.IC ---
Received call from lab confirming pt has CRE. Updated Dr Carter via [employer] and spoke with Judy Ye nurse research and development manager via telephone to give update.Pt remains on contact precautions.
[2020-06-21 20:32] LABS: Stone Source STONE
[2020-06-22 03:26] VITALS: BP 121/81; PULSE 85; RESP 16; TEMP 36.1; O2SAT 96
[2020-06-22 06:25] LABS: Hematocrit 41.1 % (42-52); Mean Corpuscular HGB Conc 31.6 g/dl (31.0-36.0); Mean Corpuscular Hemoglobin 25.5 pg (27.0-33.0); Mean Corpuscular Volume 80.6 fL (80-98); Mean Platelet Volume 9.7 fL (9.4-12.4); Platelet Count 391 X10*3/uL (160-400); Red Cell Distribution Width 14.9 % (11.0-16.0); White Blood Count 9.5 X10*3/uL (4.8-10.8)
[2020-06-22 06:49] LABS: Anion Gap 15 (12-20); Blood Urea Nitrogen 12 mg/dL (9-16); Calcium 9.3 mg/dL (8.4-10.2); Carbon Dioxide 30 mmol/L (22-29); Chloride 100 mmol/L (96-108); Creatinine Clr Calc Pharmacy 142.1; Estimated Glomerular Filt Rate > 60; Glucose Random 88 mg/dL (60-115); Potassium 4.6 mmol/L (3.3-5.1); Sodium 140 mmol/L (135-145)
[2020-06-22 07:38] VITALS: BP 142/93; PULSE 103; RESP 18; TEMP 36.7; O2SAT 96
[2020-06-22] MEDS: amLODIPine Besylate 10 MG TABLET PO (08:40)
[2020-06-22] MEDS: Docusate Sodium 100 MG CAPSULE PO (08:41)
[2020-06-22] MEDS: 0.9 % Sodium Chloride Flush 3 ML SYRINGE IVFLUSH (08:41)
--- NOTE | 2020-06-22 08:57 | PM.DS ---
DS: Providers Provider Date of Service: 06/22/20 Date of admission: 06/14/20 23:01 Primary care physician: Za Mackey MD Consults: 06/14/20 23:16 Consult to Urology Routine Consulting Provider: Jaren Celis Reason for consultation: Hydronephrosis/renal calculi/pyelonephritis 06/16/20 10:01 Consult to Infectious Diseases Routine Consulting Provider: Ariella Carter Reason for consultation: gram negative stefani sepsis bacteremia DS: Diagnosis Discharge Diagnosis (1) Acute pyelonephritis: Status: Acute (2) Kidney stone: Status: Acute (3) Hydronephrosis: Status: Acute Problem details: Possibly urine sourc 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 (4) Sepsis: Status: Acute (5) Bacteremia due to Klebsiella pneumoniae: Status: Acute DS: Medications Discharge Medications Home Medications: Home Medications Medication Instructions Recorded Confirmed albuterol sulfate 90 mcg/actuation 2 puff INHALATION Q4-6H PRN 02/12/20 aerosol inhaler sertraline 50 mg tablet 50 mg PO DAILY 02/12/20 methadone 89 mg PO DAILY 03/02/20 06/16/20 amlodipine 10 mg PO DAILY 06/15/20 06/15/20 DS: Summary Hospital Course Hospital Course: Chief Complaint: Right flank pain 44-year-old male with a past medical history of anxiety, depression, asthma, hepatitis-C, hypertension, history of upper extremity amputee, history of bilateral below-knee amputation presented to the hospital with a chief complaint of right flank pain. Patient mentions that he had a kidney stone and had stent placed in February of 2020 subsequently removed in general . Subsequently he has been having hematuria and over the past day he noticed right-sided flank pain. Denies any fever chills. Denies any chest pain palpitations. Patient also complains of nausea and vomiting with the pain. Review of all other systems is negative except mentioned above ER course: Per ER team patient noted to have leukocytosis of 20, urinalysis abnormal consistent with UTI, CT scan showed hydronephrosis/hydroureter/large calcification in the proximal ureter near the right ureteropelvic junction. Also noted perinephric stranding; patient was given ceftriaxone. Blood cultures were sent. ER team also mentioned that this spoke to Dr. celis who mentioned to continue antibiotics and with the evaluated in the morning. Hospital course: Sepsis due to acute pyelonephritis, bacteremia (Klebsiella ieshae) that is multidrug resistant--On admission was on Ceftriaxone and on 06/17 Doxyclycine was added when it was reported that the Klebsiella was Carbapenem resistant and ceftriaxone resistant but sensitive to Doxycyline with RICHARD of 4. ID recommended addition of Meropenem pending additional sensitivity as lab was sent to [facility] for further ID. ID recommended Doxy for 7 days but patient refusing to stay for last day and will leave against advise. Patient has since been doing well. WBC of 18K has come down to 9 today 06/22, urine culture grew similar organism. [facility] sensitive is similar to ours with RICHARD < 4 Bilateral renal calculi/right-sided ureteropelvic junction calcification/hydronephrosis -s/p right cystoscopy, retrograde ureteroscopy, laser lithotripsy, stone basketing of right proximal ureteric stones and right renal stones and stent placement by Dr. Celis. Will need stent removal in 2 to 3 week by urology History of opiate dependence: Continue methadone 90/daily, can return to 89 upon discharge. Constipation: Colace, dulcolax, miralx, Mom Status at Discharge Functional status at discharge: independent ambulation Time Spent with Patient Time attestation: Total time spent providing and/or coordinating discharge services: Discharge coordination time: Greater than 30 minutes Physical Exam Vital Signs: Vital Signs: Last Vital Signs Temp 98.0 F 06/22/20 07:38 Pulse 103 H 06/22/20 07:38 Resp 18 06/22/20 07:38 BP 142/93 H 06/22/20 07:38 Pulse Ox 96 06/22/20 07:38 Body Mass Index 27.8 Const: General: cooperative, healthy appearing, comfortable and no acute distress Nutritional Appearance: average body habitus Orientation/consciousness: oriented to person, oriented to place and oriented to time HENMT: Head: Yes normal to inspection Eyes: General: appearance normal, both eyes and all related structures Chest: Chest palpation & inspection: normal inspection of the chest Resp: Effort & Inspection: normal respiratory effort Cardio: Rate: regular rate Rhythm: regular rhythm Bruits: other GI: Inspection: Yes normal to inspection Palpation (GI): Soft to palpation and nontender Skin: General skin exam: no rashes or lesions noted Hair: normal Neuro: General: oriented to person, oriented to place and oriented to time Extrem: Other: Bilateral below knee ampuation General: Yes normal to inspection DS: Data Data Completed and Pending Completed studies during hospitalization [Text1]: Pending at discharge 06/16/20 16:45 Surgical [PTH] Routine Labs on day of discharge: Laboratory Tests 06/14/20 06/14/20 06/14/20 18:48 18:48 18:49 WBC 16.6 H RBC 5.02 Hgb 12.9 L Hct 40.2 L MCV 80.1 MCH 25.7 L MCHC 32.1 RDW 14.4 Plt Count 315 MPV 9.7 Immature Gran % (Auto) 0.6 H Neut % (Auto) 89.8 H Lymph % (Auto) 4.9 L [place] % (Auto) 4.5 Eos % (Auto) 0.1 Baso % (Auto) 0.1 Lymph # (Auto) 0.8 L [place] # (Auto) 0.7 Eos # (Auto) 0.0 Baso # (Auto) 0.0 Abs Immat Gran (auto) 0.10 H Absolute Neuts (auto) 14.9 H Absolute Nucleated RBC 0.000 Nucleated RBC % (auto) 0.0 Smear Tech's Comments PT 17.1 H INR 1.4 H APTT 36.1 Sodium 136 Potassium 3.6 Chloride 100 Carbon Dioxide 24 Anion Gap 16 BUN 13 Creatinine 1.15 Estim Creat Clear Calc 96.4 Estimated GFR > 60 Random Glucose 155 H Lactic Acid Calcium 9.1 Total Bilirubin 0.5 Direct Bilirubin 0.2 AST 22 ALT 36 Alkaline Phosphatase 102 Total Protein 8.5 H Albumin 4.3 Lipase 13 Urine Color Urine Appearance Urine pH Ur Specific [place] Urine Protein Urine Glucose (UA) Urine Ketones Urine Blood Urine Nitrite Ur Leukocyte Esterase Urine RBC Urine WBC Ur Squamous Epith Cells Urine Bacteria Stone Source Stone Weight Stone Constituent 1 Stone Constituent 2 Stone Nidus COVID-19 (EMA) COVID-19 Clin Com 06/14/20 06/14/20 06/14/20 20:35 20:35 22:00 WBC 20.3 H RBC 4.95 Hgb 13.0 L Hct 39.6 L MCV 80.0 MCH 26.3 L MCHC 32.8 RDW 14.2 Plt Count 315 MPV 9.3 L Immature Gran % (Auto) 0.6 H Neut % (Auto) 87.4 H Lymph % (Auto) 4.3 L [place] % (Auto) 7.6 Eos % (Auto) 0.0 Baso % (Auto) 0.1 Lymph # (Auto) 0.9 L [place] # (Auto) 1.5 H Eos # (Auto) 0.0 Baso # (Auto) 0.0 Abs Immat Gran (auto) 0.12 H Absolute Neuts (auto) 17.7 H Absolute Nucleated RBC 0.000 Nucleated RBC % (auto) 0.0 Smear Tech's Comments VERIFIED PT INR APTT Sodium 137 Potassium 3.6 Chloride 100 Carbon Dioxide 26 Anion Gap 15 BUN 13 Creatinine 1.15 Estim Creat Clear Calc 96.4 Estimated GFR > 60 Random Glucose 127 H Lactic Acid 1.0 Calcium 9.0 Total Bilirubin 0.6 Direct Bilirubin 0.3 AST 22 ALT 36 Alkaline Phosphatase 100 Total Protein 8.5 H Albumin 4.4 Lipase 14 Urine Color Urine Appearance Urine pH Ur Specific [place] Urine Protein Urine Glucose (UA) Urine Ketones Urine Blood Urine Nitrite Ur Leukocyte Esterase Urine RBC Urine WBC Ur Squamous Epith Cells Urine Bacteria Stone Source Stone Weight Stone Constituent 1 Stone Constituent 2 Stone Nidus COVID-19 (EMA) COVID-19 Clin Com 06/14/20 06/14/20 06/15/20 22:50 22:50 06:49 WBC 22.0 H RBC 4.50 L Hgb 11.9 L Hct 36.2 L MCV 80.4 MCH 26.4 L MCHC 32.9 RDW 14.4 Plt Count 284 MPV 9.9 Immature Gran % (Auto) 2.7 H Neut % (Auto) 83.2 H Lymph % (Auto) 7.1 L [place] % (Auto) 6.9 Eos % (Auto) 0.0 Baso % (Auto) 0.1 Lymph # (Auto) 1.6 [place] # (Auto) 1.5 H Eos # (Auto) 0.0 Baso # (Auto) 0.0 Abs Immat Gran (auto) 0.60 H Absolute Neuts (auto) 18.3 H Absolute Nucleated RBC 0.000 Nucleated RBC % (auto) 0.0 Smear Tech's Comments VERIFIED PT INR APTT Sodium Potassium Chloride Carbon Dioxide Anion Gap BUN Creatinine Estim Creat Clear Calc Estimated GFR Random Glucose Lactic Acid Calcium Total Bilirubin Direct Bilirubin AST ALT Alkaline Phosphatase Total Protein Albumin Lipase Urine Color YELLOW Urine Appearance CLEAR Urine pH 7.0 Ur Specific [place] 1.010 Urine Protein NEG Urine Glucose (UA) NEG Urine Ketones NEG Urine Blood TRACE Urine Nitrite NEG Ur Leukocyte Esterase 1+ H Urine RBC 0-2 Urine WBC 5-9 H Ur Squamous Epith Cells TRACE Urine Bacteria 1+ Stone Source Stone Weight Stone Constituent 1 Stone Constituent 2 Stone Nidus COVID-19 (EMA) Negative COVID-19 Clin Com See Note 06/15/20 06/16/20 06/16/20 06:49 10:03 16:45 WBC 16.1 H RBC 4.39 L Hgb 11.5 L Hct 35.6 L MCV 81.1 MCH 26.2 L MCHC 32.3 RDW 14.6 Plt Count 243 MPV 9.5 Immature Gran % (Auto) Neut % (Auto) Lymph % (Auto) [place] % (Auto) Eos % (Auto) Baso % (Auto) Lymph # (Auto) [place] # (Auto) Eos # (Auto) Baso # (Auto) Abs Immat Gran (auto) Absolute Neuts (auto) Absolute Nucleated RBC 0.000 Nucleated RBC % (auto) 0.0 Smear Tech's Comments PT INR APTT Sodium 139 Potassium 3.4 Chloride 105 Carbon Dioxide 25 Anion Gap 12 BUN 10 Creatinine 0.94 Estim Creat Clear Calc 117.9 Estimated GFR > 60 Random Glucose 118 H Lactic Acid Calcium 8.1 L D Total Bilirubin Direct Bilirubin AST ALT Alkaline Phosphatase Total Protein Albumin Lipase Urine Color Urine Appearance Urine pH Ur Specific [place] Urine Protein Urine Glucose (UA) Urine Ketones Urine Blood Urine Nitrite Ur Leukocyte Esterase Urine RBC Urine WBC Ur Squamous Epith Cells Urine Bacteria Stone Source STONE Stone Weight 0.063 Stone Constituent 1 SEE NOTE Stone Constituent 2 TNP Stone Nidus TNP COVID-19 (EMA) COVID-19 Clin Com 06/17/20 06/17/20 06/20/20 08:05 08:06 07:59 WBC 18.4 H 11.3 H RBC 4.44 L 4.93 Hgb 11.5 L 12.8 L Hct 35.8 L 39.7 L MCV 80.6 80.5 MCH 25.9 L 26.0 L MCHC 32.1 32.2 RDW 14.7 15.0 Plt Count 254 336 D MPV 10.0 9.9 Immature Gran % (Auto) Neut % (Auto) Lymph % (Auto) [place] % (Auto) Eos % (Auto) Baso % (Auto) Lymph # (Auto) [place] # (Auto) Eos # (Auto) Baso # (Auto) Abs Immat Gran (auto) Absolute Neuts (auto) Absolute Nucleated RBC 0.000 0.000 Nucleated RBC % (auto) 0.0 0.0 Smear Tech's Comments PT INR APTT Sodium 136 Potassium 3.8 Chloride 102 Carbon Dioxide 26 Anion Gap 12 BUN 13 Creatinine 0.87 Estim Creat Clear Calc 127.4 Estimated GFR > 60 Random Glucose 144 H Lactic Acid Calcium 8.4 Total Bilirubin Direct Bilirubin AST ALT Alkaline Phosphatase Total Protein Albumin Lipase Urine Color Urine Appearance Urine pH Ur Specific [place] Urine Protein Urine Glucose (UA) Urine Ketones Urine Blood Urine Nitrite Ur Leukocyte Esterase Urine RBC Urine WBC Ur Squamous Epith Cells Urine Bacteria Stone Source Stone Weight Stone Constituent 1 Stone Constituent 2 Stone Nidus COVID-19 (EMA) COVID-19 [place] Com 06/20/20 06/22/20 06/22/20 07:59 05:49 05:49 WBC 9.5 RBC 5.10 Hgb 13.0 L Hct 41.1 L MCV 80.6 MCH 25.5 L MCHC 31.6 RDW 14.9 Plt Count 391 MPV 9.7 Immature Gran % (Auto) Neut % (Auto) Lymph % (Auto) [place] % (Auto) Eos % (Auto) Baso % (Auto) Lymph # (Auto) [place] # (Auto) Eos # (Auto) Baso # (Auto) Abs Immat Gran (auto) Absolute Neuts (auto) Absolute Nucleated RBC 0.000 Nucleated RBC % (auto) 0.0 Smear Tech's Comments PT INR APTT Sodium 140 140 Potassium 4.1 4.6 Chloride 101 100 Carbon Dioxide 27 30 H Anion Gap 16 15 BUN 11 12 Creatinine 0.77 0.78 Estim Creat Clear Calc 144.0 142.1 Estimated GFR > 60 > 60 Random Glucose 82 D 88 Lactic Acid Calcium 9.2 D 9.3 Total Bilirubin Direct Bilirubin AST ALT Alkaline Phosphatase Total Protein Albumin Lipase Urine Color Urine Appearance Urine pH Ur Specific [place] Urine Protein Urine Glucose (UA) Urine Ketones Urine Blood Urine Nitrite Ur Leukocyte Esterase Urine RBC Urine WBC Ur Squamous Epith Cells Urine Bacteria Stone Source Stone Weight Stone Constituent 1 Stone Constituent 2 Stone Nidus COVID-19 (EMA) COVID-19 Clin Com Preliminary micro results at discharge 06/14/20 22:00 Blood Culture - Preliminary Blood - Venous K. pneumoniae CRE 06/14/20 23:03 Urine Culture - Preliminary Urine clean catch - Clean Catch Midstream Klebsiella ozaenae 06/14/20 22:01 Blood Culture - Preliminary Blood - Venous Klebsiella ozaenae Discharge Plan Discharge Anticipated Discharge Date/Time: 06/22/20 08:41 Patient Disposition: Left Against Medical Advice Referrals: Za Coles MD [Primary Care Provider] - Jaren Celis MD [Physician] - 2 Weeks (Has Stent ) Discharge Medications: New doxycycline monohydrate 100 mg capsule 100 mg PO BID Qty: 20 RF: 0 Continued methadone 10 mg/mL Concentrate 89 mg PO DAILY RF: 0 amlodipine 10 mg Tablet 10 mg PO DAILY RF: 0 albuterol sulfate 90 mcg/actuation HFA aerosol inhaler 2 puff inhalation Q4-6H PRN (Reason: Dyspnea) RF: 0 sertraline [Zoloft] 50 mg tablet 50 mg PO DAILY RF: 0 Discharge Orders: Discharge Order (Routine); Ordered 06/22/20 Ordered By: Edilson Arrington Diet: advance to usual diet Activity on Discharge: As tolerated Care Plan Goals: to eradication urine and blood infection Health Concerns: kidney stone with stent, urine infection, blood infection Plan of Treatment: Take Doxycyline as recommended and follow up with Dr. Celis in 2 weeks. You understand you didn't want to stay for one more day for IV antiboitics and instead to leave and take full responsibility including the posibility of deathy
[2020-06-22] MEDS: Doxycycline Hyclate 100 MG in 0.9 % Sodium Chloride 250 ML 166.67 MG IV (11:48)
[2020-06-22 12:00] VITALS: BP 130/87; PULSE 95; RESP 18; TEMP 36.7; O2SAT 95
--- NOTE | 2020-06-22 14:19 | MHC.CM.PN ---
pt left ama refrerral cancelled to altranis vna
--- NOTE | 2020-06-23 13:51 | MHC.IC ---
NOTIFIED MITA RN AT [facility] OF PT CRE STATUS AND NECESSARY PRECAUTIONS PT IS TO FOLLOW UP WITH THIS OFFICE.
== END 2020-06-22 14:54 | disposition left against medical advice (07) | DRG 710 ==
LOC: HO.ED 22:37 → HO.EDOVER 23:36 → HO.S3 06-15 19:05
PROVIDERS: Physician Assistant; Urology; Admitting Provider Hospitalist; Emergency Provider Emergency Medicine; PCP Internal Medicine; Visit Provider Internal Medicine
PROC: 0TC68ZZ Extirpation of Matter from Right Ureter, Via Natural or Artificial Opening Endoscopic (ICD-10-PCS; principal; 2020-06-16 15:30)
DX: A41.59 Other Gram-negative sepsis (principal); F11.20 Opioid dependence, uncomplicated; N13.6 Pyonephrosis; F32.9 Major depressive disorder, single episode, unspecified; K59.00 Constipation, unspecified; F17.210 Nicotine dependence, cigarettes, uncomplicated; Z71.6 Tobacco abuse counseling; F41.9 Anxiety disorder, unspecified; Z87.442 Personal history of urinary calculi; Z89.512 Acquired absence of left leg below knee; Z89.511 Acquired absence of right leg below knee; Z20.822 Contact with and (suspected) exposure to COVID-19; Z79.899 Other long term (current) drug therapy
CPT/HCPCS: 36415; 74176; 80048; 80053; 80076; 81001; 81003; 82365; 83605; 83690; 85025; 85027; 85610; 85730; 87040; 87077; 87086; 87088; 87186; 87205; 87635; 88300; 96361; 96374; 96375; 99284; 99285; C1894; C2617; J0696; J1100; J1170; J1580; J1885; J2185; J2186; J2250; J2405; J3010; Q9967

== ENCOUNTER 2020-07-11 11:20 | Day surgery (SDC) | payer MEDICAID, SELFPAY ==
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
[2020-07-11] VITALS (7 sets, daily range): BP systolic 131–157; BP diastolic 81–90; PULSE 82–97; RESP 10–18; TEMP 36.3–37.3; O2SAT 93–97; BMI 29.2
--- NOTE | 2020-07-11 12:38 | MHC.SHP ---
Pre-Procedural Eval Section A The patient is an INPATIENT: No Changes since office visit: No Cold of Flu in the past 2 weeks, No New Medical Problems, No Changes in Medication and No Patient answered all questions The History & Physical has been completed within 30 days and I have reviewed it.: Yes Section B Chief Complaint: Calculus of Kidney Allergies: Allergies Allergy/AdvReac Type Severity Reaction Status Date / Time No Known Allergies Allergy Verified 07/11/20 11:59 [No Known Allergies*] Plan Diagnosis/Plan: Unchanged I have reviewed the history and physical and performed a pertinent physical examination on my patient. No changes have occurred unless specified. right retrograde ureteroscopy laser lithotripsy stent placement
[2020-07-11] MEDS: Lactated Ringers 1,000 ML 100 ML IVCONT (12:44)
--- NOTE | 2020-07-11 15:23 | PM.OP ---
Brief Operative Note Date of Service: 07/11/20 Pre-op diagnosis: Right renal stones Post-op diagnosis: same Procedure: 1. Cystoscopy removal of right stent 2. Right retrograde 3. Right ureteric sheath placement under fluoroscopy 4. Right ureteroscopy laser lithotripsy stone basketing Implants: None Surgeon: Jaren Pettit MD Anesthesia: GLMA Estimated blood loss (mL): 0 Pathology: other (Stones) Condition: stable Disposition: same day
--- NOTE | 2020-07-11 15:27 | W.PM.OPN ---
Operative Note Operative Note Date of Service: 07/11/20 Narrative: PreOperative Diagnosis: Right renal stones Post Operative Diagnosis: Right renal stones multiple Procedure: - cystoscopy, right stent removal, right retrograde - placement of ureteric access sheath - ureteroscopy, laser lithotripsy, stone basketing - stent placemenSurgeon: Dr Jaren Pettit Anesthesia: General Indications for procedure: This is a 44-year-old male. Previous procedure for large number of right stones. Here to remove remnant debris. At time of last procedure developed perioperative SIRS response. Found to have Klebsiella pneumoniae CRE. For this reason we are trying to remove the rest the stones that are likely the source of this. Id approved perioperative antibiotics with combination imipenem and collastin Procedure: After informed consent was verified patient was brought to the operating placed in supine position. Anesthesia was administered per protocol. Patient was placed in modified dorsal lithotomy position and prepped and draped in a sterile fashion. Safety pause time-out and side of surgery confirmed. Antibiotics confirmed. Twenty-two [place] cystoscope inserted per urethra. The bladder was normal. The right stent was grasped removed. A sensor guidewire was placed up the renal pelvis. A ureteric access sheath was placed over the wire. A [employer] disposable ureteral scope was placed. Stones were encountered in the lower pole. There were numerous fragments. A laser was used to break up the larger fragments. We then spent 45 minutes basketing stone fragments in removal. It completion was still small fragments left that cannot be passed. These will pass by themselves. Decision was made not to leave a stent the patient had requested not to have 1 placed. He was extubated in operating room and transferred in stable condition to the recovery area. Pathology: Stones Drains: None
[2020-07-11] MEDS: Acetaminophen 325 MG TABLET 650 MG PO (15:58)
[2020-07-11] MEDS: Phenazopyridine HCL 100 MG TABLET PO (15:58)
[2020-07-16 01:27] LABS: Stone Source KIDNEY STONE
== END 2020-07-11 16:38 | disposition home or self-care (01) ==
PROVIDERS: PCP Internal Medicine; Visit Provider Urology
PROC: (CPT 52353; principal; 2020-07-11 13:00)
DX: N20.0 Calculus of kidney (principal); I10 Essential (primary) hypertension; B19.20 Unspecified viral hepatitis C without hepatic coma; F11.20 Opioid dependence, uncomplicated; Z86.19 Personal history of other infectious and parasitic diseases; Z89.512 Acquired absence of left leg below knee; Z89.511 Acquired absence of right leg below knee; F17.290 Nicotine dependence, other tobacco product, uncomplicated
CPT/HCPCS: 52353; 52352; 82365; C1769; J1100; J1885; J2250; J2405; J3010; Q9967

== ENCOUNTER 2020-07-28 15:16 | Outpatient (REF) | payer MEDICAID, SELFPAY ==
--- NOTE | ~2020-07-28 | US_ITS ---
EXAMINATION: US RETROPERITONEAL LIMITED (RENAL ONLY) CLINICAL INFORMATION: Calculus of kidney. COMPARISON: CT abdomen and pelvis 06/14/2020. KUB 03/02/2020. Ultrasound abdomen complete 01/14/2020. Ultrasound abdomen limited 06/15/2019. TECHNIQUE: Real-time imaging of the kidneys. FINDINGS: RIGHT KIDNEY: 11.1 x 6.3 x 6.4 cm (SAG x AP x TRV). The kidney is normal in size, contour, and echogenicity. There is mild cortical thinning. No focal parenchymal lesions. There is a small echogenic stone midpole measuring 1.5 cm and a lower pole echogenic stone measuring 1.3 cm. Moderate hydroureteronephrosis is noted with distended right proximal ureter measuring 1.3 cm. LEFT KIDNEY: 10.4 x 4.7 x 4.9 cm (SAG x AP x TRV). The kidney is normal in size, contour, and echogenicity. Renal cortical thickness is normal. No focal parenchymal lesions or hydronephrosis. There is an echogenic stone in the lower pole measuring 0.5 cm. Small cortical calcifications are seen measuring 0.7 and 0.3 cm. These were seen previously. US/US renal BI IMPRESSION: Nonobstructive bilateral echogenic renal calculi. These were noted on the recent CT abdomen and pelvis exam 06/14/2020. There is moderate hydroureteronephrosis right kidney with no obstructive etiology seen. Distal ureteral stone cannot be excluded.
== END 2020-07-28 15:17 | disposition home or self-care (01) ==
LOC: HO.US 15:16
PROVIDERS: Visit Provider Urology
DX: N13.2 Hydronephrosis with renal and ureteral calculous obstruction (principal)
CPT/HCPCS: 76775

== ENCOUNTER → 2020-08-25 10:41 | Outpatient (BNVA) | payer MEDICAID, SELFPAY | PROVIDERS: PCP Internal Medicine; Visit Provider Urology ==

== ENCOUNTER 2021-02-23 12:30 | Outpatient (REF) | payer MEDICAID, SELFPAY ==
--- NOTE | ~2021-02-23 | US_ITS ---
EXAMINATION: US RETROPERITONEAL LIMITED (RENAL ONLY) CLINICAL INFORMATION: Calculus of kidney. COMPARISON: Renal ultrasound 07/28/2020. CT abdomen and pelvis 06/14/2020. X-ray abdomen KUB 03/02/2021. Ultrasound abdomen 01/14/2020. TECHNIQUE: Real-time imaging of the kidneys. Technically difficult study secondary to bowel gas. FINDINGS: RIGHT KIDNEY: 11.3 x 6.6 x 6.0 cm (SAG x AP x TRV). The kidney is normal in size, contour, and echogenicity. Renal cortical thickness is normal. No focal parenchymal lesions. Lower pole renal stones measuring 1.8 and 0.8 cm. [id number] hydroureteronephrosis, similar when compared to the prior examination. LEFT KIDNEY: 11.6 x 6.2 x 6.2 cm (SAG x AP x TRV). The kidney is normal in size, contour, and echogenicity. Renal cortical thickness is normal. No focal parenchymal lesions. Mid/lower pole stone measuring 0.6 cm and lower pole stone measuring 0.7 cm. Mild left-sided hydronephrosis, new when compared to the prior examination. US/US renal BI IMPRESSION: 1. [id number] right-sided hydroureteronephrosis, unchanged. Right-sided renal stones measuring up to 1.8 cm. 2. Mild left-sided hydroureteronephrosis, new when compared to the prior examination. Left-sided renal stones measuring up to 0.7 cm.
== END 2021-02-23 12:31 | disposition home or self-care (01) ==
LOC: HO.US 12:30
PROVIDERS: PCP Internal Medicine; Visit Provider Urology
DX: N20.0 Calculus of kidney (principal)
CPT/HCPCS: 76775

== ENCOUNTER → 2021-03-08 10:49 | Outpatient (BNVA) | payer MEDICAID, SELFPAY | PROVIDERS: PCP Internal Medicine; Visit Provider Urology ==

== ENCOUNTER → 2021-03-23 10:47 | Outpatient (BNVA) | payer MEDICAID, SELFPAY | PROVIDERS: PCP Internal Medicine; Referring Provider Internal Medicine; Visit Provider Surgery | DX: L72.0 Epidermal cyst (principal) | CPT/HCPCS: 99202 ==

== ENCOUNTER 2021-08-31 15:14 | Emergency (ER) | payer MEDICAID, SELFPAY ==
--- NOTE | ~2021-08-31 | US_ITS ---
EXAMINATION: US SCROTUM CLINICAL INFORMATION: Swelling and pain.. COMPARISON: None TECHNIQUE: A sonogram of the scrotum was performed assessing garvey-scale appearance and color Doppler flow. Spectral Doppler analysis of the arterial and venous flow were performed in the testes bilaterally. FINDINGS: RIGHT: Right testicle measures 3.4 x 2.2 x 2.5 cm, volume 9.6 mL. No focal testicular parenchymal lesions are visualized. Spectral Doppler analysis of the arterial and venous flow is normal in the right testis. Right epididymal head is normal in size. The tail the right epididymis is thickened and hyperemic consistent with epididymitis. Small right-sided hydrocele. Scrotal tory in the medial right side scrotal sac and a 2 x 4 mm. LEFT: Left testicle measures 3.8 x 2.1 x 2.2 cm, volume 9.3 mL. No focal testicular parenchymal lesions are visualized. Spectral Doppler analysis of the arterial and venous flow is normal in the left testis. Left epididymal head is normal in size. No left hydrocele or varicocele is seen. Left epididymal Doppler flow is normal. US/US scrotum IMPRESSION: 1. Normal right and left testicle. 2. Right-sided epididymitis.
[2021-08-31 15:55] VITALS: BP 147/93; PULSE 119; RESP 16; TEMP 36.9; O2SAT 16; BMI 35.5
[2021-08-31 16:16] LABS: MANUAL DIFF FLAG NO
[2021-08-31 16:20] LABS: Basophils Percent Auto 0.3 % (0-2); Eosinophils Absolute Auto 0.1 X10*3/uL (0.0-0.4); Eosinophils Percent Auto 0.7 % (0-4); Hematocrit 41.8 % (42.0-52.0); Hemoglobin 13.4 g/dl (14.0-18.0); Imm Gran Abs Auto 0.09 X10*3/uL (0.00-0.03); Imm Gran Pct Auto 0.8 % (0.0-0.4); Lymphocytes Absolute Auto 2.5 X10*3/uL (1.2-4.9); Lymphocytes Percent Auto 21.2 % (20-40); Mean Corpuscular HGB Conc 32.1 g/dl (31.0-36.0); Mean Corpuscular Hemoglobin 25.4 pg (27.0-33.0); Mean Corpuscular Volume 79.2 fL (80.0-98.0); Mean Platelet Volume 10.1 fL (9.4-12.4); Monocytes Absolute Auto 1.1 X10*3/uL (0.1-1.2); Monocytes Percent Auto 9.6 % (2-11); Neutrophils Absolute Auto 7.8 x10*3/uL (2.0-8.3); Neutrophils Percent Auto 67.4 % (45-73); Platelet Count 284 X10*3/uL (160-400); Red Blood Count 5.28 X10*6/uL (4.60-5.80); Red Cell Distribution Width 12.5 % (11.0-16.0); White Blood Count 11.6 X10*3/uL (4.8-10.8)
[2021-08-31 16:21] VITALS: BP 133/101; PULSE 110; RESP 13; TEMP 37.2; O2SAT 94
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
[2021-08-31 16:30] LABS: Acetone, serum QL Small (Negative)
[2021-08-31 16:40] LABS: Glucose, Whole Blood 414 mg/dL (60-115)
[2021-08-31] MEDS: Insulin Lispro 100 UNIT/ML 3 ML VIAL 10 UNIT SUBCUT (16:50)
[2021-08-31 16:52] LABS: Anion Gap 16 (12-20); Blood Urea Nitrogen 10 mg/dL (9-16); Calcium 9.7 mg/dL (8.4-10.2); Carbon Dioxide 27 mmol/L (22-29); Chloride 93 mmol/L (96-108); Estimated Glomerular Filt Rate > 60; Glucose Random 464 mg/dL (60-115); Potassium 3.9 mmol/L (3.3-5.1); Sodium 132 mmol/L (135-145)
[2021-08-31] MEDS: levoFLOXacin/D5W 500 MG/100 ML PIGGYBACK 100 MG IV (17:10)
[2021-08-31] MEDS: 0.9 % Sodium Chloride 1,000 ML 999 ML IV ×2 (17:13→18:46)
[2021-08-31 18:29] LABS: Glucose, Whole Blood 337 mg/dL (60-115)
[2021-08-31] MEDS: Insulin Lispro 100 UNIT/ML 3 ML VIAL 8 UNIT SUBCUT (18:46)
--- NOTE | 2021-08-31 19:08 | PC.NURSE ---
Took report from RN to assume care of PT, Pt resting, family at bedside, call light in reach, this RN continues to monitor.
[2021-08-31 19:47] VITALS: BP 142/82; PULSE 98; RESP 13; TEMP 36.8; O2SAT 96
[2021-08-31 21:32] VITALS: BP 127/80; PULSE 93; RESP 13; TEMP 36.8; O2SAT 94
[2021-08-31 21:49] LABS: Glucose, Whole Blood 210 mg/dL (60-115)
== END 2021-08-31 22:47 | disposition home or self-care (01) ==
PROVIDERS: Student in an Organized Health Care Education/Training Program; Emergency Provider Internal Medicine; PCP Internal Medicine
DX: N45.1 Epididymitis (principal); N50.89 Other specified disorders of the male genital organs; E11.9 Type 2 diabetes mellitus without complications; Z79.899 Other long term (current) drug therapy; Z87.891 Personal history of nicotine dependence
CPT/HCPCS: 36415; 76870; 80048; 82009; 82947; 85025; 96361; 96374; 99284; 99291; J1956

== ENCOUNTER 2021-09-19 13:32 | Outpatient (REF) | payer MEDICAID, SELFPAY ==
--- NOTE | ~2021-09-19 | US_ITS ---
EXAMINATION: US RETROPERITONEAL LIMITED (RENAL ONLY) CLINICAL INFORMATION: Calculus of kidney. COMPARISON: Ultrasound renal 02/23/2021 and 07/28/2020. TECHNIQUE: Real-time imaging of the kidneys. FINDINGS: RIGHT KIDNEY: 10.8 x 5.6 x 5.8 cm (SAG x AP x TRV). The kidney is normal in size, contour, and echogenicity. Renal cortical thickness is normal. No focal parenchymal lesions. There are echogenic stones in lower pole measuring 0.8 x 0.5 x 0.6, 0.8 x 0.5 x 1.0 cm. There is mild hydroureteronephrosis. The hydroureter measures 0.8 cm in diameter. LEFT KIDNEY: 10.9 x 6.6 x 6.0 cm (SAG x AP x TRV). The kidney is normal in size, contour, and echogenicity. Renal cortical thickness is normal. No focal parenchymal lesions or hydronephrosis. There is an echogenic stone midpole measuring 1.0 x 0.5 0.4 cm. There is mild pelvic fullness. US/US renal BI IMPRESSION: Two echogenic stones lower pole right kidney with moderate hydroureteronephrosis, similar to previous study. Small echogenic stone midpole measuring 1.0 cm with mild pelvic fullness.
--- NOTE | ~2021-09-19 | US_ITS ---
EXAMINATION: US SCROTUM CLINICAL INFORMATION: Right testicular pain. COMPARISON: Ultrasound scrotum 08/31/2021. TECHNIQUE: A sonogram of the scrotum was performed assessing garvey-scale appearance and color Doppler flow. Spectral Doppler analysis of the arterial and venous flow were performed in the testes bilaterally. FINDINGS: RIGHT: Right testicle measures 3.3 x 2.1 x 2.8 cm, volume 10.1 mL. No focal testicular parenchymal lesions are visualized. Spectral Doppler analysis of the arterial and venous flow is normal in the right testis. Incidental findings of a scrotal tory and a testicular appendix noted. Right epididymal head is normal in size. The tail of the epididymis is enlarged in size with increased vascularity suspicious for epididymitis. There is a right small hydrocele. No right varicocele is seen. Right epididymal Doppler flow is normal. There is a right scrotal hernia. LEFT: Left testicle measures 3.7 x 2.1 x 1.8 cm, volume 7.3 mL. No focal testicular parenchymal lesions are visualized. Spectral Doppler analysis of the arterial and venous flow is normal in the left testis. Left epididymal head is normal in size. No left hydrocele or varicocele is seen. Left epididymal Doppler flow is normal. US/US scrotum IMPRESSION: Enlarged tail of right epididymis with increased vascularity suggestive of epididymitis. There is evidence of right scrotal tory and right appendix testis. Also visualized is a right scrotal hernia. Unremarkable left testis.
== END 2021-09-19 13:33 | disposition home or self-care (01) ==
LOC: HO.US 13:32
PROVIDERS: Visit Provider Internal Medicine
DX: N20.0 Calculus of kidney (principal); N50.811 Right testicular pain
CPT/HCPCS: 76775; 76870

== ENCOUNTER → 2021-09-22 09:38 | Outpatient (BNVA) | payer MEDICAID, SELFPAY | PROVIDERS: PCP Internal Medicine; Visit Provider Urology | DX: R78.81 Bacteremia (principal) ==

== ENCOUNTER 2022-03-16 09:50 | Outpatient (REF) | payer MEDICAID, SELFPAY ==
--- NOTE | ~2022-03-16 | CT_ITS ---
EXAMINATION: CT ABDOMEN AND PELVIS WITHOUT CONTRAST CLINICAL INFORMATION: Kidney stone COMPARISON: Previous renal ultrasound September [address] of the abdomen and pelvis June 2020 TECHNIQUE: Multidetector volumetric imaging was performed from the superior aspect of the liver through the pubic symphysis. Sagittal and coronal reformatted images were obtained on the technologist's workstation. This CT examination was performed using dose optimization techniques as appropriate, variously including the following: *Automated exposure control *Adjustment of mA and/or kV according to patient size (this includes techniques or standardized protocols for targeted exams where dose is matched to indication/reason for exam; i.e. extremities or head) *Use of iterative reconstruction technique DLP: 713 mGy-cm FINDINGS: LUNG BASES: The visualized lung bases are unremarkable. LIVER, GALLBLADDER, AND BILIARY TREE: Slightly low-attenuation liver questionable for mild fatty infiltration with focal fatty sparing adjacent to the gallbladder. The liver is otherwise normal. The gallbladder is normal. There is no biliary duct dilatation. The gallbladder is unremarkable with no evidence of radiopaque gallstones, gallbladder wall thickening, or obvious pericholecystic inflammatory changes. PANCREAS: Unremarkable. SPLEEN: Unremarkable. ADRENAL GLANDS: Unremarkable. KIDNEYS AND URETERS: There is right renal cortical thinning. There are stones in the lower pole of the right kidney, largest measuring 6 x 11 mm forming a cast in a lower pole calyx. There is moderate to severe right hydronephrosis. This is similar to previous ultrasound and CT exam. There is no right ureteral dilatation. There is increased attenuation seen in the right proximal ureter are questionable for small stones or stone fragments. There is a 3 mm stone in the lower pole of the left kidney. There is a 3 mm stone in the lateral cortex of the left kidney questionable for cortical calcification as opposed to stone. No left hydronephrosis, ureteral dilatation or ureteral stone. BLADDER: Not optimally distended but appears unremarkable. GASTROINTESTINAL TRACT: The small and large bowel are unremarkable. The appendix is unremarkable. ABDOMINAL WALL: Small umbilical hernia containing fat. LYMPH NODES: Small retroperitoneal and small bowel mesentery lymph nodes. No enlarged lymph nodes. No ascites. VASCULAR: Unremarkable. PELVIC VISCERA: Unremarkable. OSSEOUS STRUCTURES: Mild scoliosis and degenerative changes of the spine. CT/CT abdomen pelvis wo IV con IMPRESSION: Bilateral renal stones, right greater than left. Moderate to severe right hydronephrosis similar to prior exams. Normal caliber right ureter. Question tiny stones or stone fragments in the right proximal ureter. Fleischner guidelines were followed.
== END 2022-03-16 09:51 | disposition home or self-care (01) ==
LOC: HO.CT 09:50
PROVIDERS: PCP Internal Medicine; Visit Provider Urology
DX: N20.0 Calculus of kidney (principal)
CPT/HCPCS: 74176

== ENCOUNTER 2022-07-29 16:51 | Emergency (ER) | payer MEDICAID, SELFPAY ==
--- NOTE | ~2022-07-29 | CT_ITS ---
EXAMINATION: CT ABDOMEN AND PELVIS WITHOUT CONTRAST CLINICAL INFORMATION: Right-sided abdominal pain. COMPARISON: CT scan of the abdomen and pelvis dated 03/16/2022. TECHNIQUE: Multidetector volumetric imaging was performed from the superior aspect of the liver through the pubic symphysis. Sagittal and coronal reformatted images were obtained on the technologist workstation. This CT examination was performed using dose optimization techniques as appropriate, variously including the following: *Automated exposure control *Adjustment of mA and/or kV according to patient size (this includes techniques or standardized protocols for targeted exams where dose is matched to indication/reason for exam; i.e. extremities or head) *Use of iterative reconstruction technique DLP: 832 mGy-cm. FINDINGS: LUNG BASES: Scattered linear areas of atelectasis seen in the lung bases. LIVER, GALLBLADDER, AND BILIARY TREE: The liver is normal in size, shape, and attenuation. No focal hepatic lesion on noncontrast imaging. No biliary ductal dilatation is present. The gallbladder is unremarkable with no evidence of radiopaque gallstones, gallbladder wall thickening, or obvious pericholecystic inflammatory changes. PANCREAS: Mild diffuse fatty infiltration of the pancreas noted.. SPLEEN: Unremarkable. ADRENAL GLANDS: Unremarkable on noncontrast imaging. KIDNEYS AND URETERS: Again seen is severe right-sided hydroureteronephrosis with the dilated right ureter gradually decompressing to normal caliber in the mid abdomen with no obvious transition point mass or stone seen. Mild associated perinephric stranding is noted. No left-sided hydronephrosis is noted. There are several bilateral variably sized calculi in the kidneys bilaterally, measuring up to 0.8 x 0.4 cm in the lower pole of the right kidney with mean attenuation values of 356 Hounsfield units and 0.4 cm in the lower pole of the left kidney with mean attenuation values of 361 Hounsfield units. These findings are similar to the previous exam. No ureteral calculi seen. BLADDER: Well-distended and unremarkable. PELVIC VISCERA: Unremarkable. GASTROINTESTINAL TRACT: The small and large bowel are unremarkable. The appendix is unremarkable. ABDOMINAL WALL: There is a small fat-containing umbilical hernia.. LYMPH NODES, VASCULAR: Unremarkable. OSSEOUS STRUCTURES: S-shaped thoracolumbar scoliosis. Moderate degenerative disc disease and facet arthropathy at the lumbosacral junction. CT/CT abdomen pelvis wo IV con IMPRESSION: 1. Persistent severe right-sided hydroureteronephrosis is seen with no obvious transition point or obstructing stone or mass seen. Findings are similar to the previous exam. 2. Multiple bilateral nonobstructing renal calculi are again seen. 3. Small fat-containing umbilical hernia. 4. Mild diffuse fatty infiltration of the pancreas.
[2022-07-29 17:09] VITALS: BP 122/87; PULSE 112; RESP 20; TEMP 36.7; O2SAT 96; BMI 29.7
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
[2022-07-29 18:54] LABS: MANUAL DIFF FLAG NO
[2022-07-29 18:58] LABS: Basophils Percent Auto 0.3 % (0-2); Eosinophils Percent Auto 0.4 % (0-4); Hematocrit 40.9 % (42.0-52.0); Hemoglobin 13.1 g/dl (14.0-18.0); Imm Gran Abs Auto 0.06 X10*3/uL (0.00-0.03); Imm Gran Pct Auto 0.5 % (0.0-0.4); Lymphocytes Absolute Auto 1.5 X10*3/uL (1.2-4.9); Lymphocytes Percent Auto 13.7 % (20-40); Mean Corpuscular Volume 81.3 fL (80.0-98.0); Mean Platelet Volume 9.6 fL (9.4-12.4); Monocytes Absolute Auto 0.7 X10*3/uL (0.1-1.2); Monocytes Percent Auto 5.9 % (2-11); Neutrophils Absolute Auto 8.7 x10*3/uL (2.0-8.3); Neutrophils Percent Auto 79.2 % (45-73); Platelet Count 256 X10*3/uL (160-400); Red Blood Count 5.03 X10*6/uL (4.60-5.80); Red Cell Distribution Width 14.5 % (11.0-16.0)
--- NOTE | 2022-07-29 19:11 | PC.NURSE ---
assumed care of pt aox4, no apparent distress, resting quietly while sister at bedside call bui placed w/n pt reach
[2022-07-29] MEDS: Ketorolac Tromethamine 30 MG/ML VIAL IVPUSH (19:17)
--- NOTE | 2022-07-29 19:37 | PC.NURSE ---
pt refused dilaudid and is not nauseous, refused zofran as well ketorolac 30 mg per MAR administered
--- NOTE | 2022-07-29 19:37 | PC.NURSE ---
note in [facility] link specimen SST recvd prior to this nurse assuming care clotted, lab redrawn by this nurse labeled and sent to lab via tube system difficult stick butterfly to L hand
[2022-07-29 19:38] LABS: Influenza A PCR NEGATIVE (Negative); Influenza B PCR NEGATIVE (Negative); Resp Syncy Virus RNA Qual PCR NEGATIVE (Negative); SARS COV2 PCR INHOUSE NEGATIVE (Negative)
[2022-07-29 20:00] LABS: Alanine Aminotransferase 38 U/L (0-40); Albumin Level 4.2 g/dL (3.5-5.0); Alkaline Phosphatase 89 U/L (39-117); Anion Gap 17 (12-20); Aspartate Amino Transferase 22 U/L (5-37); Bilirubin Total 0.2 mg/dL (0.0-1.0); Blood Urea Nitrogen 15 mg/dL (9-16); Calcium 9.2 mg/dL (8.4-10.2); Carbon Dioxide 21 mmol/L (22-29); Chloride 103 mmol/L (96-108); Creatinine Clr Calc Pharmacy 106.2; Estimated Glomerular Filt Rate > 60; Glucose Random 127 mg/dL (60-115); Magnesium 2.2 mg/dL (1.6-2.6); Potassium 4.4 mmol/L (3.3-5.1); Sodium 137 mmol/L (135-145)
[2022-07-29 21:43] VITALS: BP 123/74; PULSE 112; RESP 18; TEMP 36.9; O2SAT 95
[2022-07-29 21:54] LABS: Appearance Urine Clear; Color Urine Yellow; Glucose Urine UA Negative (Negative); Leukocyte Esterase Urine Negative (Negative); Nitrite Urine Negative (Negative); PH 5.5 (5.0-9.0); UMIC TRIGGER UACC YES; Urine Blood Small (1+) (Negative); Urine Ketones Negative (Negative); Urine Protein Trace mg/dL (Neg-Trace)
[2022-07-29 21:59] LABS: Bacteria Urine None Seen (None Seen); Hyaline Casts Urine 0-2 /LPF (0-2); Squamous Epithelial Cell Urine 0-2 /HPF (0-2); WBC Urine 0-5 /HPF (0-5)
--- NOTE | 2022-07-29 22:19 | PC.NURSE ---
Discharge instructions given/explained to pt No apparent distress Pt denies pain aox4 pt leaving with sister Pt mode of discharge- by wheelchair (baseline) IV cath intact upon removal
== END 2022-07-29 22:18 | disposition home or self-care (01) ==
PROVIDERS: Physician Assistant Medical; Emergency Provider Emergency Medicine Emergency Medical Services; PCP Internal Medicine
DX: R10.11 Right upper quadrant pain (principal); Z79.899 Other long term (current) drug therapy; Z20.822 Contact with and (suspected) exposure to COVID-19; Z20.828 Contact with and (suspected) exposure to other viral communicable diseases
CPT/HCPCS: 0241U; 74176; 80053; 81001; 83735; 85025; 96374; 96375; 99284; J1170; J1885; J2405

== ENCOUNTER 2022-08-01 12:55 | Outpatient (REF) | payer MEDICAID, SELFPAY | END 2022-08-01 12:56 | disposition home or self-care (01) | LOC: HO.LNP 12:55 | PROVIDERS: PCP Internal Medicine; Referring Provider Registered Nurse; Visit Provider Surgery | DX: R22.42 Localized swelling, mass and lump, left lower limb (principal); L72.0 Epidermal cyst; Z79.899 Other long term (current) drug therapy | CPT/HCPCS: 11402; 11403; 88304; 88305; 99202 ==

== ENCOUNTER → 2022-08-09 08:30 | Outpatient (BNVA) | payer MEDICAID, SELFPAY | PROVIDERS: PCP Internal Medicine; Visit Provider Surgery ==

== ENCOUNTER 2023-02-25 11:52 | Outpatient (REF) | payer MEDICAID, SELFPAY ==
--- NOTE | ~2023-02-25 | US_ITS ---
EXAMINATION: US RETROPERITONEAL LIMITED (RENAL ONLY) CLINICAL INFORMATION: Calculus of kidney. COMPARISON: CT abdomen and pelvis without contrast 07/29/2022. Ultrasound retroperitoneal limited (renal only) 09/19/2021 and 02/23/2021. X-ray abdomen KUB 03/02/2020. TECHNIQUE: Real-time imaging of the kidneys. Limited visualization due to bowel gas. FINDINGS: RIGHT KIDNEY: 11.6 x 4.7 x 4.5 cm (SAG x AP x TRV). Moderate right hydronephrosis. Multiple renal calculi, largest lower pole 1.3 x 0.6 x 1.0 cm. Limited visualization. LEFT KIDNEY: 10.10 x 5.8 x 6.8 cm (SAG x AP x TRV). Mild hydronephrosis. Multiple renal calculi with multiple calculi clusters in the lower pole and largest calculus midpole 0.7 x 1.1 x 1 cm. Limited visualization. US/US renal BI IMPRESSION: Bilateral nephrolithiasis. Moderate right hydronephrosis. Mild left hydronephrosis.
== END 2023-02-25 11:53 | disposition home or self-care (01) ==
LOC: HO.US 11:52
PROVIDERS: PCP Internal Medicine; Visit Provider Urology
DX: N20.0 Calculus of kidney (principal)
CPT/HCPCS: 76775

== ENCOUNTER 2023-03-22 13:31 | Outpatient (AMB) | payer MEDICAID, SELFPAY ==
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
== END 2023-03-22 14:03 | disposition home or self-care (01) ==
PROVIDERS: Visit Provider Urology
DX: N20.0 Calculus of kidney (principal); N13.30 Unspecified hydronephrosis
CPT/HCPCS: 99213

== ENCOUNTER → 2023-03-22 13:31 | Outpatient (BNVA) | payer MEDICAID, SELFPAY | PROVIDERS: Visit Provider Urology | DX: N20.0 Calculus of kidney (principal); N13.30 Unspecified hydronephrosis | CPT/HCPCS: 99212 ==

== ENCOUNTER 2023-04-18 13:56 | Outpatient (AMB) | payer MEDICAID, SELFPAY ==
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
[2023-04-18 14:11] VITALS: BP 118/56; PULSE 95; BMI 32.0
== END 2023-04-18 15:08 | disposition home or self-care (01) ==
PROVIDERS: PCP Internal Medicine; Visit Provider Nurse Practitioner
DX: K59.04 Chronic idiopathic constipation (principal); Z01.818 Encounter for other preprocedural examination; R76.8 Other specified abnormal immunological findings in serum; K21.9 Gastro-esophageal reflux disease without esophagitis; B19.20 Unspecified viral hepatitis C without hepatic coma; Z22.8 Carrier of other infectious diseases; R10.84 Generalized abdominal pain; J45.909 Unspecified asthma, uncomplicated; F11.20 Opioid dependence, uncomplicated
CPT/HCPCS: 99203

== ENCOUNTER → 2023-04-18 13:56 | Outpatient (BNVA) | payer MEDICAID, SELFPAY | PROVIDERS: PCP Internal Medicine; Visit Provider Nurse Practitioner | DX: Z01.818 Encounter for other preprocedural examination (principal); K59.04 Chronic idiopathic constipation; K21.9 Gastro-esophageal reflux disease without esophagitis; R76.8 Other specified abnormal immunological findings in serum; R10.84 Generalized abdominal pain; B19.20 Unspecified viral hepatitis C without hepatic coma; F11.20 Opioid dependence, uncomplicated; J45.909 Unspecified asthma, uncomplicated; Z22.8 Carrier of other infectious diseases | CPT/HCPCS: 99212 ==

== ENCOUNTER 2023-05-29 13:21 | Outpatient (REF) | payer MEDICAID, SELFPAY ==
--- NOTE | ~2023-05-29 | XR_ITS ---
EXAMINATION: XR ABDOMEN COMPLETE CLINICAL INDICATION: Generalized abdominal pain. COMPARISON: None available. TECHNIQUE: AP supine and decubitus views of the abdomen. The patient was unable to stand fully upright view. FINDINGS: There is no free air under the diaphragm. The bowel gas pattern is normal with no evidence of ileus or obstruction. 1.0 cm calcification projects over the lower pole of the right kidney. Calcifications in the pelvis likely represent phleboliths. Degenerative changes are seen in the lower lumbar spine. XR/XR abdomen min 2V IMPRESSION: 1. No obstruction. 2. Question of 1.0 cm calcification in the lower pole of the right kidney.
[2023-05-29 14:50] LABS: TSH reflex Free T4 1.17 uIU/mL (0.32-4.0)
== END 2023-05-29 13:22 | disposition home or self-care (01) ==
LOC: HO.XRAY 13:21
PROVIDERS: PCP Internal Medicine; Visit Provider Nurse Practitioner
DX: K59.04 Chronic idiopathic constipation (principal); R10.84 Generalized abdominal pain
CPT/HCPCS: 36415; 74019; 84443

== ENCOUNTER 2023-06-19 11:20 | Outpatient (AMB) | payer MEDICAID, SELFPAY ==
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
[2023-06-19 11:34] VITALS: BP 137/79; BMI 33.4
== END 2023-06-19 12:34 | disposition home or self-care (01) ==
PROVIDERS: PCP Internal Medicine; Visit Provider Nurse Practitioner
DX: K21.9 Gastro-esophageal reflux disease without esophagitis (principal); K59.04 Chronic idiopathic constipation
CPT/HCPCS: 99213

== ENCOUNTER → 2023-06-19 11:20 | Outpatient (BNVA) | payer MEDICAID, SELFPAY | PROVIDERS: PCP Internal Medicine; Visit Provider Nurse Practitioner | DX: K21.9 Gastro-esophageal reflux disease without esophagitis (principal); K59.04 Chronic idiopathic constipation | CPT/HCPCS: 99212 ==

== ENCOUNTER 2023-09-20 12:35 | Outpatient (REF) | payer MEDICAID, SELFPAY ==
--- NOTE | ~2023-09-20 | US_ITS ---
EXAMINATION: US RETROPERITONEAL LIMITED (RENAL ONLY) CLINICAL INFORMATION: Calculus of kidney. COMPARISON: X-ray abdomen 05/29/2023. Renal ultrasound 02/25/2023 [address] 09/19/2021. CT abdomen and pelvis 07/29/2022. TECHNIQUE: Real-time imaging of the kidneys. FINDINGS: RIGHT KIDNEY: 10.0 x 3.7 x 3.5 cm (SAG x AP x TRV). The kidney is normal in size, contour, and echogenicity. Renal cortical thickness is normal. 7 mm lower pole calculus. Mild right-sided hydronephrosis is noted, stable to improved from February 2023 imaging. LEFT KIDNEY: 11.6 x 5.4 x 5.4 cm (SAG x AP x TRV). The kidney is normal in size, contour, and echogenicity. Renal cortical thickness is normal. A few nonobstructing calculi are noted within the left kidney, largest measuring approximately 1 cm. There is some calyceal dilatation without gross hydronephrosis. US/US renal BI IMPRESSION: 1. Mild right-sided hydronephrosis, stable to improved from February 2023 imaging. 2. Nonobstructing bilateral renal calculi.
== END 2023-09-20 12:36 | disposition home or self-care (01) ==
LOC: HO.US 12:35
PROVIDERS: PCP Internal Medicine; Visit Provider Urology
DX: N20.0 Calculus of kidney (principal)
CPT/HCPCS: 76775

== ENCOUNTER 2023-10-29 13:13 | Outpatient (AMB) | payer MEDICAID, SELFPAY ==
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
[2023-10-29 13:37] VITALS: BP 128/65; PULSE 99; BMI 33.8
== END 2023-10-29 14:09 | disposition home or self-care (01) ==
PROVIDERS: PCP Internal Medicine; Visit Provider Nurse Practitioner
DX: K21.9 Gastro-esophageal reflux disease without esophagitis (principal); K59.04 Chronic idiopathic constipation
CPT/HCPCS: 99213

== ENCOUNTER → 2023-10-29 13:13 | Outpatient (BNVA) | payer MEDICAID, SELFPAY | PROVIDERS: PCP Internal Medicine; Visit Provider Nurse Practitioner | DX: K59.04 Chronic idiopathic constipation (principal); K21.9 Gastro-esophageal reflux disease without esophagitis | CPT/HCPCS: 99212 ==

== ENCOUNTER 2024-01-08 12:45 | Outpatient (AMB) | payer MEDICAID, SELFPAY ==
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
== END 2024-01-08 13:25 | disposition home or self-care (01) ==
PROVIDERS: PCP Internal Medicine; Visit Provider Urology
DX: N13.30 Unspecified hydronephrosis (principal); N20.0 Calculus of kidney
CPT/HCPCS: 99213

== ENCOUNTER → 2024-01-08 12:45 | Outpatient (BNVA) | payer MEDICAID, SELFPAY | PROVIDERS: PCP Internal Medicine; Visit Provider Urology | DX: N20.0 Calculus of kidney (principal); N13.30 Unspecified hydronephrosis | CPT/HCPCS: 99212 ==

== ENCOUNTER 2024-03-23 17:05 | Emergency (ER) | payer MEDICAID, SELFPAY ==
--- NOTE | ~2024-03-23 | CT_ITS ---
EXAMINATION: CT ABDOMEN AND PELVIS WITHOUT CONTRAST CLINICAL INFORMATION: Flank pain COMPARISON: 07/29/2022 TECHNIQUE: Multidetector volumetric imaging was performed from the superior aspect of the liver through the pubic symphysis. Sagittal and coronal reformatted images were obtained on the technologist's workstation. This CT examination was performed using dose optimization techniques as appropriate, variously including the following: *Automated exposure control *Adjustment of mA and/or kV according to patient size (this includes techniques or standardized protocols for targeted exams where dose is matched to indication/reason for exam; i.e. extremities or head) *Use of iterative reconstruction technique DLP: 693 mGy-cm FINDINGS: LUNG BASES: Unremarkable. ABDOMINAL AND PELVIC WALL: Unremarkable. LIVER AND BILIARY TREE: Hepatic steatosis. GALLBLADDER: Unremarkable. PANCREAS: Unremarkable. SPLEEN: Unremarkable. ADRENAL GLANDS: Unremarkable. KIDNEYS AND URETERS: Moderate right hydroureteronephrosis. Multiple bilateral renal stones measuring up to 10 mm on the left and 7 mm on the right. Mild inflammatory changes surrounding the mid right ureter which may reflect a recently passed stone. GASTROINTESTINAL TRACT: There is fatty infiltration of the distal rectosigmoid colonic wall which may be sequela of inflammatory bowel disease. No evidence of active inflammation. Appendix is within normal limits. VASCULAR: Unremarkable LYMPH NODES/PERITONEUM: No lymphadenopathy. FREE FLUID: None. BLADDER: Unremarkable. PELVIC VISCERA: Unremarkable. OSSEOUS STRUCTURES: Unremarkable. CT/CT abdomen pelvis wo IV con IMPRESSION: * Moderate right hydroureteronephrosis. Mild inflammatory changes surrounding the mid right ureter which may reflect a recently passed stone. * Fatty infiltration of the distal rectosigmoid colonic wall which may be sequela of inflammatory bowel disease. No evidence of active inflammation. Electronically signed by: Simi Cornell MD 03/23/2024 07:42 PM EST
[2024-03-23 17:45] VITALS: BP 150/92; PULSE 108; RESP 16; TEMP 36.2; O2SAT 93; BMI 32.9
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
[2024-03-23 18:06] LABS: MANUAL DIFF FLAG NO
[2024-03-23 18:22] LABS: Alanine Aminotransferase 37 U/L (0-40); Albumin Level 4.2 g/dL (3.5-5.0); Alkaline Phosphatase 112 U/L (39-117); Anion Gap 17 (12-20); Aspartate Amino Transferase 20 U/L (5-37); Bilirubin Total 0.3 mg/dL (0.0-1.0); Blood Urea Nitrogen 18 mg/dL (9-16); Calcium 9.8 mg/dL (8.4-10.2); Carbon Dioxide 25 mmol/L (22-29); Chloride 102 mmol/L (96-108); Creatinine Clr Calc Pharmacy 106.8; Estimated Glomerular Filt Rate > 60; Glucose Random 223 mg/dL (60-115); Potassium 3.8 mmol/L (3.3-5.1); Sodium 140 mmol/L (135-145); Total Protein 8.5 g/dL (6.5-8.0)
[2024-03-23 18:23] LABS: Basophils Percent Auto 0.3 % (0-2); Eosinophils Percent Auto 0.3 % (0-4); Hematocrit 41.5 % (42.0-52.0); Hemoglobin 13.5 g/dl (14.0-18.0); Imm Gran Abs Auto 0.05 X10*3/uL (0.00-0.03); Imm Gran Pct Auto 0.5 % (0.0-0.4); Lymphocytes Absolute Auto 1.8 X10*3/uL (1.2-4.9); Lymphocytes Percent Auto 15.9 % (20-40); Mean Corpuscular HGB Conc 32.5 g/dl (31.0-36.0); Mean Corpuscular Hemoglobin 25.9 pg (27.0-33.0); Mean Corpuscular Volume 79.7 fL (80.0-98.0); Mean Platelet Volume 9.6 fL (9.4-12.4); Monocytes Absolute Auto 0.7 X10*3/uL (0.1-1.2); Monocytes Percent Auto 6.7 % (2-11); Neutrophils Absolute Auto 8.4 x10*3/uL (2.0-8.3); Neutrophils Percent Auto 76.3 % (45-73); Platelet Count 255 X10*3/uL (160-400); Red Blood Count 5.21 X10*6/uL (4.60-5.80); Red Cell Distribution Width 14.6 % (11.0-16.0)
[2024-03-23 18:29] LABS: Bacteria Urine None Seen (None Seen); RBC Urine >20 /HPF (0-2); Squamous Epithelial Cell Urine 0-2 /HPF (0-2); WBC Urine 0-5 /HPF (0-5)
[2024-03-23 18:30] LABS: Appearance Urine Cloudy; Color Urine Orange; Glucose Urine UA Negative (Negative); Leukocyte Esterase Urine Trace (Negative); Nitrite Urine Negative (Negative); PH 5.5 (5.0-9.0); Specific Gravity - Urine 1.015 (1.005-1.025); UMIC TRIGGER UACC YES; Urine Blood Large (3+) (Negative); Urine Ketones Negative (Negative); Urine Protein 100 (2+) mg/dL (Neg-Trace)
[2024-03-24 00:23] VITALS: BP 150/92; PULSE 99; RESP 16; TEMP 36.2; O2SAT 93
== END 2024-03-24 00:23 | disposition home or self-care (01) ==
PROVIDERS: Physician Assistant Medical; Emergency Provider Emergency Medicine; PCP Internal Medicine
DX: N23 Unspecified renal colic (principal); R31.9 Hematuria, unspecified; Z87.440 Personal history of urinary (tract) infections; Z79.899 Other long term (current) drug therapy
CPT/HCPCS: 36415; 74176; 80053; 81001; 85025; 99282; 99284

== ENCOUNTER → 2024-04-13 13:09 | Outpatient (REF) | payer MEDICAID, SELFPAY ==
--- NOTE | ~2024-04-13 | NM_ITS ---
EXAMINATION: NM RENOGRAM WITH LASIX CLINICAL INFORMATION: Calculus of kidney. COMPARISON: CT of the abdomen and pelvis done on 06/14/2020, 07/29/2022 and 03/23/2024. Renal ultrasound done on 09/20/2023 is also reviewed. TECHNIQUE: Dynamic renal scintigraphy was performed after intravenous administration of 10 mCi Tc-99m Technetium 99m DTPA for 30 minutes. 40 mg of furosemide was administered at 30 minutes and continued dynamic imaging of the abdomen/pelvis was obtained for a total of 60 minutes. The radiotracer was injected through a left hand superficial vein without complications. FINDINGS: Left kidney 89.7% and the right ofylgb81.3% of total renal uptake. Left Kidney: Normal perfusion. Normal cortical uptake and and progressive excretion into the normal appearing left renal pelvicalyceal system followed by progressive washout before as well as after administration of Lasix. No meaningful T 1/2 of Lasix could not be calculated since most of the radiotracer was excreted out before administration of Lasix. Right Kidney: Normal perfusion. The right kidney appear smaller, shows progressive but diminutive radiotracer uptake followed by progressive excretion into the dilated pelvicalyceal system. No significant excretion of radiotracer was noted before administration of Lasix. Following administration of Lasix, there is a minimal washout noted consistent with downstream obstruction. No meaningful T 1/2 of Lasix could not be calculated since most of the radiotracer was not washed out. Other: Post void image shows significant retention within the dilated pelvicalyceal system of the right kidney and complete washout of radiotracer from the left kidney and minimal retained radiotracer within the bladder and no evidence of any reflux. NM/NM renal flow w pharm int IMPRESSION: 1. Differential renal function: Left 89.7%, Right 10.3%. 2. Left kidney has non-obstructive parameters after diuresis. 3. Right kidney has non-obstructive parameters after diuresis. Electronically signed by: Karthik Hill MD 04/19/2024 04:28 PM [facility] [place]
[2024-04-13] MEDS: Furosemide 40 MG/4 ML VIAL IVPUSH (16:36)
== END ==
LOC: HO.NUCMED 13:09
PROVIDERS: PCP Internal Medicine; Visit Provider Urology
DX: N20.0 Calculus of kidney (principal); N23 Unspecified renal colic; R31.0 Gross hematuria; N13.30 Unspecified hydronephrosis
CPT/HCPCS: 78708; A9539; J1940

== ENCOUNTER 2024-06-24 08:58 | Outpatient (AMB) | payer MEDICAID, SELFPAY ==
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
--- OUTSIDE RECORDS SUMMARY | 2024-06-24 09:51 | XMS_ITS | Encounter Summary ---
Author Organization [email or web address] Address [address] [place] [address] Care Team Providers Care Information Systems Project Manager Name Role Phone Za Coles MD Primary Care Provide r Reason for Visit * Reason Comments Med Refill Encounter Details Date Type Department Care Team ([facility] st Contact Info) Description 05/04/2023 Refill [facility] MED[facility]INE [address] [place], [place] [phone] Za Coles MD [address] [place], [place] [phone] Anxiety Social History Tobacco Use Types Packs/Day Years Used Date Smoking Tobacco: Former Cigarettes 0.3 0.5 Passive Smoke Exposure: Never Smokeless Tobacco: Current Alcohol Use Standard Drinks/Week Comments Not Currently 0 (1 standard drink = 0.6 oz pur e alcohol) Housing Stability Answer Date Recorded What is your housing situation today? I have amita mares 02/26/[address] you li ve. Do you have problems with any of the following? None of the above 02/26/2023 Food Insecurity Answer Date Recorded Within the past 12 months, y ou worried that your food would run out before you got money to buy more: Never True 02/26/2023 Within the past 12 months,th e food you bought just didn't last and you didn't have enough money to get more: Never True Transportation Answer Date Recorded In the past 12 months, has l ack of transportation kept you from medical appts, meetings, work or from getting things needed for daily living? No 02/26/2023 Utilities Answer Date Recorded In the past 12 months, has t he electric, gas, oil or water company threatened to shut off services in your home? No 02/26/2023 Depression Answer Date Recorded Patient Health Questionnaire-2 Score 0 10/22/2022 Sex and Gender Information Value Date Recorded Sex Assigned at Male 03/12/2022 10:35 AM EDT Legal Sex Male 10:35 AM EDT Gender Identity Male 03/12/2022 10:35 AM EDT Sexual Orientation Choose not to disclose 2021 10:35 AM EDT documented as of this encounter Plan of Treatment Upcoming Encounters Date Type Department Care Team (Late st Contact Info) Description 07/16/2024 1:15 PM EST Office Visit [facility] MED[facility]INE [address] [place] [address] [phone] Za Coles MD [address] [place] [phone] documented as of this encounter Visit Diagnoses Diagnosis Anxiety Anxiety state, unspecified documented in this encounter Care Teams Information Systems Project Manager Relationship Specialty Start Date End Date Za Coles MD [address] [place] [phone] PCP - General Family Medicine 10/22/18 documented as of this encounter
--- OUTSIDE RECORDS SUMMARY | 2024-06-24 09:51 | XMS_ITS | Encounter Summary ---
Author Organization [employer] Address [address] [place] [address] Care Team Providers Care Tool Storage Attendant Name Role Phone Za Coles MD Primary Care Provide r Reason for Visit * Reason Onset Date Comments Triage 09/06/2022 Encounter Details Date Type Department Care Team ([facility] st Contact Info) Description 09/06/2022 Telephone [facility] MEDICINE [address] [place], [place] [phone] Za Coles MD [address] [place], [place] [phone] Triage Social History Tobacco Use Types Packs/Day Years Used Date Smoking Tobacco: Former Cigarettes Smokeless Tobacco: Current Alcohol Use Standard Drinks/Week [...] t he electric, gas, oil or water [employer] threatened to shut off services in your home? No 02/26/2023 Depression Answer Date Recorded Patient Health Questionnaire-2 Score 0 10/22/2022 Sex and Gender Information Value Date Recorded Sex Assigned at Male 03/12/2022 10:35 AM EDT Legal Sex Male 10:35 AM EDT Gender Identity Male 03/12/2022 10:35 AM EDT Sexual Orientation Choose not to disclose 2021 10:35 AM EDT COVID-19 Exposure Response Date Recorded In the last 10 days, have edd u been in contact with someone who was confirmed or suspected to have Coronavirus/COVID-19? No / Unsure 10/22/2022 3:08 PM EDT documented as of this encounter Miscellaneous Notes * Telephone Encounter - Elidia Heller RN - 09/06/2022 2:01 PM EDT Triage call with [employer] [id number] Pt reports high blood pressure yesterday and today of 167/77. Pt also report headache which started3-4 days ago. Pt reports nausea at times due to the pain and vision gets blurry. Pt is taking bloodpressure medication as prescribed. Pt denies numbness, difficulty talking/walking. Pt is advised tocome to [facility] today and Pt requests to come to [facility] in the morning. Hours given --830am - 400pm. Pt verbalizes understanding. Pt is advised to seek evaluation in ED if symptoms become worse. Pt agrees with disposition and home care reviewed. Multiple (2) protocols were used on this call. Disposition for Call: See in Office or Video Visit Today or Tomorrow Protocol Used: Headache (Adult) Protocol-Based Disposition: See in Office or Video Visit Today or Tomorrow Video visit not offered Positive Triage Question: * Unexplained headache that is present > 24 hours * All higher-acuity triage questions were negative Care Advice Discussed: * Pain Medicines * Pain Medicines - Extra Notes and Warnings * Rest * Apply Cold to the Area * Stretching * Reasons To Call Back - Headache lasts longer than 24 hours - You become worse Protocol Used: Blood Pressure - High (Adult) Protocol-Based Disposition: See in Office or Video Visit within 3 Days Video visit not offered Positive Triage Question: * Systolic BP >= 160 OR Diastolic >= 100 * All higher-acuity triage questions were negative Care Advice Discussed: * Reassurance and Education - BP Under 130 / 80 and Taking BP Meds * Reassurance and Education - BP 120-129 / 80 * Reassurance and Education - BP under 120 / 80 * High Blood Pressure * High Blood Pressure - Lifestyle Modifications * How to Check Your Blood Pressure? * Reasons To Call Back - Headache, blurred vision, difficulty talking, or difficulty walking occurs - Chest pain or difficulty breathing occurs - You want to go into the office for a blood pressure check - You become worse * Telephone Encounter - Kena Mccainjia - 09/06/2022 1:29 PM EDT Symptom: High Blood Pressure - Caller Reports Outcome: Talk to a nurse or provider within 15 minutes Reason: Severe headache The caller accepted this outcome Please contact at [phone] Romanian documented in this encounter Plan of Treatment Upcoming Encounters Date Type Department Care Team (Late st Contact Info) Description 07/16/2024 1:15 PM EST Office Visit [facility] [address] [place] [phone] aZ Coles MD [address] [place] [address] documented as of this encounter Visit Diagnoses Not on filedocumented in this encounter Care Teams Tool Storage Attendant Relationship Specialty Start Date End Date Za Coles MD [address] [place] [phone] PCP - General Family Medicine 10/22/18 documented as of this encounter
--- OUTSIDE RECORDS SUMMARY | 2024-06-24 09:51 | XMS_ITS | Encounter Summary ---
Author Organization [employer] Address [address] [place] [address] Care Team Providers Care Residential Supervisor Name Role Phone Za Coles MD Primary Care Provide r Reason for Visit * Reason Onset Date Comments Med Refill 06/01/2022 Encounter Details Date Type Department Care Team ([facility] st Contact Info) Description 06/01/2022 Telephone [facility]INE [address] [place], [place] [phone] Za Coles MD [address] [place], [place] [phone] Med Refill Social History Tobacco Use Types Packs/Day Years Used Date Smoking Tobacco: Never Assessed Sex and Gender Information Value Date Recorded Sex Assigned at Male 03/12/2022 10:35 AM EDT Legal Sex Male 10:35 AM EDT Gender Identity Male 03/12/2022 10:35 AM EDT Sexual Orientation Choose not to disclose 2021 10:35 AM EDT documented as of this encounter Miscellaneous Notes * Telephone Encounter - Ping Balderas LPN - 06/01/2022 1:30 PM EST Medication sent to pharmacy on 05/31/22. * Telephone Encounter - Janet Holliday - 06/01/2022 1:00 PM EST Tc from pt requesting a med refill for Metformin 850mg to be sent to [facility]/pharmacy #[id number] - [place], [place] - [address] Please contact [phone] documented in this encounter Plan of Treatment Upcoming Encounters Date Type Department Care Team ([facility] st Contact Info) Description 07/16/2024 1:15 PM EST Office Visit [facility] [address] [place] [phone] Za Coles MD [address] [place] [phone] documented as of this encounter Visit Diagnoses Not on filedocumented in this encounter Care Teams Residential Supervisor Relationship Specialty Start Date End Date Za Coles MD [address] [place] [address] [phone] PCP - General Family Medicine 10/22/18 documented as of this encounter
--- OUTSIDE RECORDS SUMMARY | 2024-06-24 09:51 | XMS_ITS | Clinical Summary ---
Author Organization [employer] Address [address] [facility] 7[address] [place] [address] Care Team Providers Care Shield Runner Name Role Phone Za Coles MD Primary Care Provide r Allergies No known active allergies Medications bisacodyl (Dulcolax) 5 MG EC tablet Take 2 tablets by mouth 1 (one) time each day. 08/16/19 21 Active docusate sodium (Colace) 100 MG capsule Take 1 capsule by mouth every 12 (twelve) hours. 10/11/19 22 Active Melatonin 10 MG capsule take one at bed time 06/23/19 20 Active polyethylene glycol, PEG, 3350 (Glycolax) 17 GM/SCOOP powder take (17G) by oral route every day mixed with 8 oz. water, juice, soda, coffee or tea 04/27/20 20 Active triamcinolone (Kenalog) 0.1 % ointment Apply topically every 12 (twelve) hours. 06/23/19 20 Active lisinopril (Prinivil) 10 MG tabletIndicatio ns:Essential hypertension Take 1 tablet (10 mg) by mouth in the morning. 30 tablet 11 10/23/19 23 Active potassium citrate CR (Urocit-K-10) 10 mEq ER tablet Take 20 mEq by mouth 2 times daily. 09/17/19 23 Active FREESTYLE LITE test strip CHECK BY FINGERSTICK ROUTE 2 TIMES EVERY DAY 100 strip 3 12/14/19 23 Active amLODIPine (Norvasc) 10 MG tablet TAKE 1 TABLET BY MOUTH EVERY DAY 90 tablet 2 11/18/19 24 Active Ventolin HFA 108 (90 Base) MCG/ACT inhalerIndicati ons:Mild intermittent asthma without complication INHALE 2 PUFFS EVERY 4 (FOUR) HOURS IF NEEDED FOR SHORTNESS OF BREATH OR WHEEZING. 18 g 2 02/10/20 24 Active famotidine (Pepcid) 20 MG tabletIndicatio ns:Heartburn TAKE 1 TABLET BY MOUTH TWICE A DAY 180 tablet 3 03/23/20 24 Active metFORMIN (Glucophage) 850 MG tabletIndicatio ns:Type 2 diabetes mellitus with hyperglycemia, without long-term current use of insulin (CMS/HCC) TAKE 1 TABLET BY MOUTH TWICE A DAY WITH BREAKFAST AND DINNER 180 tablet 1 04/29/20 24 Active hydrOXYzine HCl (Atarax) 50 MG tabletIndicatio ns:Anxiety TAKE 1 TABLET BY MOUTH EVERY 12 HOURS IF NEEDED FOR ITCHING 60 tablet 05/18/19 25 Active sertraline (Zoloft) 100 MG tabletIndicatio ns:Anxiety TAKE 1 TABLET BY MOUTH EVERY DAY IN THE MORNING 90 tablet 1 06/15/19 25 Active sertraline (Zoloft) 100 MG tabletIndicatio ns:Anxiety TAKE 1 TABLET BY MOUTH EVERY DAY IN THE MORNING 90 tablet 1 09/13/19 24 025 Discontinued Active Problems Problem Noted Date Diagnosed Date Missing teeth, acquired 01/23/2024 Edentulous maxilla 12/25/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5 (A) 06/28/2023 HGBA1C 5.8 01/18/2023 HGBA1C 5.8 10/22/2022 - Lab Results Component Value Date CREATININE 0.93 07/29/2022 -Changes: none - Diabetic eye exam:up to date - Diabetic foot exam:N/A - Continue lifestyle modifications - Continue current medications - Follow up: 3 months Assessment & Plan (03/12/2023 12:03 PM EDT): - Lab Results Component Value Date HGBA1C 5.8 01/18/2023 HGBA1C 5.8 10/22/2022 - Lab Results Component Value Date CREATININE 0.93 07/29/2022 - Diabetic eye exam:up to date - Diabetic foot exam: N/A - Continue lifestyle modifications - Continue current medications - Assessment & Plan (10/22/2022 4:15 PM EDT): Controlled c/w current interventions Mild intermittent asthma without complication Anxiety 10/22/2022 Assessment & Plan (10/22/2022 4:15 PM EDT): Counseling done I increase his sertraline to 100mg daily Chronic lower back pain 10/22/2022 Assessment & Plan (10/22/2022 4:15 PM EDT): XRAY ordered I will angel him with results Periodontal disease 09/27/2022 Dental caries 09/27/2022 Abscess 07/06/2022 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 Initial goal of 30 min walk 3-5x/week. Increase as tolerated. - low-sodium diet (goal: <2g/day) and heart healthy diet such as DASH to reduce BP and prevent ASCVD. - Home BP monitoring 1-2 x day with goal of <140/90. - Seek immediate medical attention for chest pain, palpitations, SOB, syncope, or sudden changes in mental status. - Do not change or discontinue current prescriptions without first consulting health care provider Assessment & Plan (03/12/2023 12:02 PM EDT): - Aerobic exercise to reduce BP. Initial goal of 30 min walk 3-5x/week. Increase as tolerated. - low-sodium diet (goal: <2g/day) and heart healthy diet such as DASH to reduce BP and prevent ASCVD. - Home BP monitoring 1-2 x day with goal of <140/90. - Seek immediate medical attention for chest pain, palpitations, SOB, syncope, or sudden changes in mental status. - Do not change or discontinue current prescriptions without first consulting health care provider Assessment & Plan (10/22/2022 4:14 PM EDT): - Aerobic exercise to reduce BP. Initial goal of 30 min walk 3-5x/week. Increase as tolerated. - low-sodium diet (goal: <2g/day) and heart healthy diet such as DASH to reduce BP and prevent ASCVD. - Home BP monitoring 1-2 x day with goal of <140/90. - Seek immediate medical attention for chest pain, palpitations, SOB, syncope, or sudden changes in mental status. - I advise to take amlodipine 10mg once a day only which is the max dose and I started him on lisinopril 10mg daily ( he is on K supplement prescribed by nephrology I advise to give a holiday to supplement while he is new medication lisinopril and Ill re-check BMP on next appointment) - Do not change or discontinue current prescriptions without first consulting health care provider Headache 07/06/2022 Hepatic fibrosis 07/06/2022 Right testicular pain 07/06/2022 Type 2 diabetes mellitus 08/31/2021 Kidney stone 01/22/2020 Chronic hepatitis C 01/09/2019 Encounters Date Type Department Care Team Description 06/13/2024 Refill [facility] [address] [place] [address] Za Coles MD Anxiety 05/18/2024 Refill [facility] [address] [place] [address] Za Coles MD Anxiety 04/29/2024 Refill [facility] [address] [place] [address] Za Coles MD Type 2 diabetes mellitus with hyperglycemia, without long-term current use of insulin ([facility]) 04/14/2024 Telephone [facility] [address] [place] [address] Opal Aguilar, OD 04/14/2024 Refill [facility] [address] [place] [address] Za Cloes MD Anxiety 03/24/2024 Telephone [facility] [address] [place] [address] Za Coles MD ER Follow-up from Last 3 Months Immunizations Name Administration Dates Next Due Pneumococcal Conjugate PCV 13 01/09/2019 Family History Medical History Relation Name Comments Diabetes Mother Hypertension Mother Hypertension Sister Relation Name Status Comments Mother Sister Social History Tobacco Use Types Packs/Day Years Used Date Smoking Tobacco: Former Cigarettes 0.3 0.5 Passive Smoke Exposure: Never Smokeless Tobacco: Current Tobacco Cessation:Ready to Q uit: Not Asked; Counseling Given: Not Answered Alcohol Use Standard Drinks/Week Comments Not Currently [...] not to disclose 2021 10:35 AM EDT Last Filed Vital Signs Vital Sign Reading Time Taken Comments Blood Pressure 140/78 01/07/2024 8:13 AM EDT Pulse 108 06/28/2023 3:45 PM EST Temperature 36.8 ??C (98.2 ??F) 06/28/2023 3:45 PM ES T Respiratory Rate 17 06/28/2023 3:45 PM EST Oxygen Saturation 96% 06/28/2023 3:45 PM EST Inhaled Oxygen Concentration - - Weight 96.5 kg (212 lb 12.8 oz) 06/28/2023 3:45 PM EST Height 170.2 cm (5' 7 ) 06/28/2023 3:45 PM EST Body Mass Index 33.33 06/28/2023 3:45 PM EST Plan of Treatment Upcoming Encounters Date Type Department Care Team (Late st Contact Info) Description 07/16/2024 1:15 PM EST Office Visit [facility] [address] [place] [address] Za Coles MD [address] [place] [address] Health Maintenance Due Date Last Done Comments CT Colonography 1977 Colonoscopy 1977 Colorectal Cancer Screening 1977 FIT DNA/Cologuard 1977 FIT 1977 FOBT 1977 HIV Screening 1977 Lipid Panel 1977 Sigmoidoscopy 1977 Diabetes: Foot Exam 08/03/1987 Alcohol/Substance Use Screening 1989 Family Planning (PISQ) 1992 DTaP/Tdap/Td Vaccines (1 - Tdap) 1996 Diabetes: Urine Protein Screening 1996 Hepatitis A Vaccines (1 of 2 - Risk 2-dose series) 1996 Hepatitis B Vaccines (1 of 3 - 19+ 3-dose series) 1996 Pneumococcal Vaccine: Pediatrics (0 to 5 Years) and At-Risk Patients (6 to 49) Years) (2 of 2 - PPSV23) 03/06/2019 01/09/2019 Dental X-Ray: Bitewings 07/08/2020 07/07/2019 Dental Oral Exam 03/31/2023 09/27/2022, 07/07/2019 Diabetes: Hemoglobin A1C 09/26/2023 024, 01/18/2023, 10/22/2022 Depression Screening 10/23/2023 10/22/2022, 10/23/19 COVID-19 Vaccine ( - season) 2024 Influenza Vaccine (#1) 2024 Dental Prophylaxis 05/23/2024 11/20/2023 SDOH Screening 06/20/2024 06/20/2023 Eye Exam 11/23/2024 11/23/2022, 11/10, 11/23/2022, Additional history exists Tobacco Screening 01/22/2025 01/23/2024 Dental X-Ray: Full Mouth 09/28/2025 09/27/2022, 06/14 Zoster Vaccines (1 of 2) 08/03/2027 RSV Patients and Patients Aged 60 years or older (1 - 1-dose 75+ series) 2052 HIB Vaccines Aged Out No longer eligi ble based on patient's age to complete this topic HPV Vaccines Aged Out No longer eligi ble based on patient's age to complete this topic IPV Vaccines Aged Out No longer eligi ble based on patient's age to complete this topic Meningococcal Vaccine Aged Out No rae asaf eligible based on patient's age to complete this topic RSV under 20 months Aged Out No longe r eligible based on patient's age to complete this topic Rotavirus Vaccines Aged Out No longer eligible based on patient's age to complete this topic Procedures Procedure Name Priority Date/Time Associated Diagnosis Comments NM KIDNEY FLOW/FUNCTION W PHARMACOLOGICAL INTERVENTION Routine 04/13/2024 1:12 PM EST PROPHYLAXIS - ADULT Routine 11/20/2023 1 :00 PM EDT Dental plaque Dental calculus POCT GLYCATED HEMOGLOBIN, TOTAL Routine 06/28/2023 3:47 PM EST Type 2 diabetes mellitus with hyperglycemia, without long-term current use of insulin ([facility]) PANORAMIC RADIOGRAPHIC IMAGE Routine 09/27/2022 1:30 PM EDT PERIODIC ORAL EVALUATION - ESTABLISHED PATIENT Routine 09/27/2022 1:30 PM EDT DIAGNOSTIC - DIAGNOSTIC IMAGING - INTRAORAL - COMPREHENSIVE SERIES OF RADIOGRAPHIC IMAGES Routine 07/07/2019 12:00 AM EST from Last 3 Months or Most Recently Relevant to Health Maintenance Results * NM Kidney Flow/Function w/ Pharmacological Intervention (04/13/2024 1:12 PM EST) Anatomical Region Laterality Modality Body Nuclear Medicine 04/13/2024 1:12 PM EST Narrative 04/19/2024 4:30 PM EST ? [facility] [place] ?[address] ?[place] [address] ?Nuclear Medicine Report ? Signed ? Patient: Willy Paniagua V ?MR#: [id number] ?? [id number] ? : 1975 ?Acct:[id number] ? Age/Sex: 48 / M ?ADM Date: 04/13/24 ? Loc: HO.NUCMED ? Attending Dr: Jaren Pettit MD ? Ordering Physician: Jaren Pettit MD ?? Date of Service: 04/13/24 ?? Procedure(s): NM renal flow w pharm int ?? Accession Number(s): [id number] ? cc: Za Coles MD; Jaren Pettit MD ? EXAMINATION: ?? NM RENOGRAM WITH LASIX ? CLINICAL INFORMATION: ?? Calculus of kidney. ? COMPARISON: ?? CT of the abdomen and pelvis done on 06/14/2020, 07/29/2022 and ?? 03/23/2024. Renal ultrasound done on 09/20/2023 is also reviewed. ? TECHNIQUE: ?? Dynamic renal scintigraphy was performed after intravenous ?? administration of 10 mCi Tc-99m Technetium 99m DTPA for 30 minutes. 40 ?? mg of furosemide was administered at 30 minutes and continued dynamic ?? imaging of the abdomen/pelvis was obtained for a total of 60 minutes. ?? The radiotracer was injected through a left hand superficial vein ?? without complications. ? FINDINGS: ?? Left kidney 89.7% and the right efqvnq72.3% of total renal uptake. ? Left Kidney: Normal perfusion. Normal cortical uptake and and ?? progressive excretion into the normal appearing left renal ?? pelvicalyceal system followed by progressive washout before as well as ?? after administration of Lasix. ? No meaningful T 1/2 of Lasix could not be calculated since most of the ?? radiotracer was excreted out before administration of Lasix. ? Right Kidney: Normal perfusion. The right kidney appear smaller, shows ?? progressive but diminutive radiotracer uptake followed by progressive ?? excretion into the dilated pelvicalyceal system. No significant ?? excretion of radiotracer was noted before administration of Lasix. ?? Following administration of Lasix, there is a minimal washout noted ?? consistent with downstream obstruction. No meaningful T 1/2 of Lasix ?? could not be calculated since most of the radiotracer was not washed ?? out. ? Other: Post void image shows significant retention within the dilated ?? pelvicalyceal system of the right kidney and complete washout of ?? radiotracer from the left kidney and minimal retained radiotracer ?? within the bladder and no evidence of any reflux. ? NM/NM renal flow w pharm int ?? IMPRESSION: ?? 1. Differential renal function: Left 89.7%, Right 10.3%. ? 2. Left kidney has non-obstructive parameters after diuresis. ? 3. Right kidney has non-obstructive parameters after diuresis. ? Electronically signed by: ??Karthik Hill MD ??04/19/2024 04:28 PM EST ?? RP ? Dictated By: ?Karthik Hill MD ? Signed By: ?<Electronically signed by Karthik Hill MD in OV> ? 04/19/24 1628 ? DD/ 1312 ? TD/TT: 04/13/24 1500 ? Student Life Vice President: PK ? Procedure Note Kishore, Marzena - 04/19/[address] [address] Nuclear Medicine Report Signed Patient: Willy Paniagua VMR#: [id number] : 1975Acct:[id number] Age/Sex: 48 / MADM Date: 04/13/24 Loc: [facility] Attending Dr: Jaren Pettit MD Ordering Physician: Jaren Pettit MD Date of Service: 04/13/24 Procedure(s): NM renal flow w pharm int Accession Number(s): [id number] cc: Za Coles MD; Jaren Pettit MD EXAMINATION: NM RENOGRAM WITH LASIX CLINICAL INFORMATION: Calculus of kidney. COMPARISON: CT of the abdomen and pelvis done on 06/14/2020, 07/29/2022 and 03/23/2024. Renal ultrasound done on 09/20/2023 is also reviewed. TECHNIQUE: Dynamic renal scintigraphy was performed after intravenous administration of 10 mCi Tc-99m Technetium 99m DTPA for 30 minutes. 40 mg of furosemide was administered at 30 minutes and continued dynamic imaging of the abdomen/pelvis was obtained for a total of 60 minutes. The radiotracer was injected through a left hand superficial vein without complications. FINDINGS: Left kidney 89.7% and the right bokvar77.3% of total renal uptake. Left Kidney: Normal perfusion. Normal cortical uptake and and progressive excretion into the normal appearing left renal pelvicalyceal system followed by progressive washout before as well as after administration of Lasix. No meaningful T 1/2 of Lasix could not be calculated since most of the radiotracer was excreted out before administration of Lasix. Right Kidney: Normal perfusion. The right kidney appear smaller, shows progressive but diminutive radiotracer uptake followed by progressive excretion into the dilated pelvicalyceal system. No significant excretion of radiotracer was noted before administration of Lasix. Following administration of Lasix, there is a minimal washout noted consistent with downstream obstruction. No meaningful T 1/2 of Lasix could not be calculated since most of the radiotracer was not washed out. Other: Post void image shows significant retention within the dilated pelvicalyceal system of the right kidney and complete washout of radiotracer from the left kidney and minimal retained radiotracer within the bladder and no evidence of any reflux. NM/NM renal flow w pharm int IMPRESSION: 1. Differential renal function: Left 89.7%, Right 10.3%. 2. Left kidney has non-obstructive parameters after diuresis. 3. Right kidney has non-obstructive parameters after diuresis. Electronically signed by: Karthik Hill MD 04/19/2024 04:28 PM EST Dictated By: Karthik Hill MD Signed By: <Electronically signed by Karthik Hill MD in OV> 04/19/24 1628 DD/ 1312 TD/TT: 04/13/24 1500 Student Life Vice President: [facility] External Provider IMG NM PROCEDURES Edited Result - Final * (ABNORMAL) POCT HGB A1C (06/28/2023 3:47 PM EST) Hemoglobin A1C 6.5(A) 4.0 - 6.0 % QC Media Lot # [id number] Lot# Expiration Date Blood 06/28/2023 3:47 PM EST Za Mackey MD POINT OF CARE TEST EN TER/EDIT ORDERABLES Final Result from Last 3 Months or Most Recently Relevant to Health Maintenance Insurance [facility] C[place] AD[place] Care Teams Shield Runner Relationship Specialty Start Date End Date Za Coles MD [address] [place] [phone] PCP - General Family Medicine 10/22/18
--- OUTSIDE RECORDS SUMMARY | 2024-06-24 09:51 | XMS_ITS | Encounter Summary ---
Author Organization [employer] Address [address] [facility] [address] [place] [address] Care Team Providers Care Adult Secondary Education Instructor Name Role Phone Za Coles MD Primary Care Provide r Reason for Visit * Reason Comments Med Refill Encounter Details Date Type Department Care Team ([facility] st Contact Info) Description 06/13/2024 Refill [facility] [address] [place], [place] [phone] Za Coles MD [address] [place], [place] [phone] Anxiety Social History Tobacco Use Types Packs/Day [...] Description 07/16/2024 1:15 PM EST Office Visit [facility] [address] [place] [address] [phone] Za Coles MD [address] [place] [phone] documented as of this encounter Visit Diagnoses Diagnosis Anxiety Anxiety state, unspecified documented in this encounter Care Teams Adult Secondary Education Instructor Relationship Specialty Start Date End Date Za Coles MD [address] [place] [address] [phone] PCP - General Family Medicine 10/22/18 documented as of this encounter
== END 2024-06-24 09:37 | disposition home or self-care (01) ==
LOC: HO.HUSH 08:58
PROVIDERS: PCP Internal Medicine; Visit Provider Urology
DX: N20.0 Calculus of kidney (principal); N13.30 Unspecified hydronephrosis
CPT/HCPCS: 99214

== ENCOUNTER 2024-08-21 08:58 | Outpatient (REF) | payer MEDICAID, SELFPAY ==
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
--- OUTSIDE RECORDS SUMMARY | 2024-08-21 09:13 | XMS_ITS | Encounter Summary ---
Author Organization [employer] Address [address] [facility] 7t [place] [address] Care Team Providers Care Project Management Intern Name Role Phone Za Coles MD Primary Care Provide r Reason for Visit * Reason Onset Date Comments Med Refill 06/01/2022 Encounter Details Date Type Department Care Team ([facility] st Contact Info) Description 06/01/2022 Telephone [facility] [address] [place], [place] [phone] Za Coles MD [address] [place], [place] [phone] Med Refill Social History Tobacco Use Types [...] for Metformin 850mg to be sent to [facility]/pharmacy #[id number] - [place], [place] - [address] [facility] Please contact [phone] documented in this encounter Plan of Treatment Upcoming Encounters Date Type Department Care Team (Late st Contact Info) Description 10/16/2024 11:00 AM EDT Office Visit [facility] [address] [place] [address] Za Coles MD [address] [place] [address] documented as of this encounter Visit Diagnoses Not on filedocumented in this encounter Care Teams Project Management Intern Relationship Specialty Start Date End Date Za Coles MD [address] [place] [address] [phone] PCP - General Family Medicine 10/22/18 documented as of this encounter
--- OUTSIDE RECORDS SUMMARY | 2024-08-21 09:13 | XMS_ITS | Encounter Summary ---
Author Organization [employer] Address [address] [facility] [address] [place] [address] Care Team Providers Care Nuclear Powerplant Mechanic Name Role Phone Za Coles MD Primary Care Provide r Reason for Visit * Reason Comments Med Refill Encounter Details Date Type Department Care Team ([facility] st Contact Info) Description 05/04/2023 Refill [facility] [address] [place], [place] [phone] Za Coles MD [address] [place], [place] [phone] Anxiety Social History Tobacco Use Types Packs/Day [...] Description 10/16/2024 11:00 AM EDT Office Visit [facility] [address] [place], [place] [phone] Za Coles MD [address] [place] [address] [phone] documented as of this encounter Visit Diagnoses Diagnosis Anxiety Anxiety state, unspecified documented in this encounter Care Teams Nuclear Powerplant Mechanic Relationship Specialty Start Date End Date Za Coles MD [address] [place] [address] [phone] PCP - General Family Medicine 10/22/18 documented as of this encounter
--- OUTSIDE RECORDS SUMMARY | 2024-08-21 09:13 | XMS_ITS | Clinical Summary ---
Author Organization [employer] Address [address] [facility] 7[address] [place] [address] Care Team Providers Care Forging Dies Final Finisher Name Role Phone Za Coles MD Primary Care Provide r Allergies No known active allergies Medications triamcinolone (Kenalog) 0.1 % ointment Apply topically every 12 (twelve) hours. 0 Active FREESTYLE LITE test strip CHECK BY FINGERSTICK ROUTE 2 TIMES EVERY DAY 100 strip 3 3 Active amLODIPine (Norvasc) 10 MG tabletIndication s:Essential hypertension Take 1 tablet (10 mg) by mouth Once per day. 90 tablet 2 5 Active bisacodyl (Dulcolax) 5 MG EC tabletIndication s:Chronic constipation Take 2 tablets (10 mg) by mouth if needed each day for constipation. 30 tablet 3 5 Active docusate sodium (Colace) 100 MG capsuleIndicatio ns:Chronic constipation Take 1 capsule (100 mg) by mouth every 12 (twelve) hours. 60 capsule 2 5 Active famotidine (Pepcid) 20 MG tabletIndication s:Heartburn Take 1 tablet (20 mg) by mouth 2 times daily. 180 tablet 3 5 Active hydrOXYzine HCl (Atarax) 50 MG tabletIndication s:Anxiety Take 1 tablet (50 mg) by mouth every 12 (twelve) hours if needed for itching. 60 tablet 2 5 Active metFORMIN (Glucophage) 850 MG tabletIndication s:Type 2 diabetes mellitus with hyperglycemia, without long-term current use of insulin (CMS/HCC) TAKE 1 TABLET BY MOUTH TWICE A DAY WITH BREAKFAST AND DINNER 180 tablet 1 5 Active sertraline (Zoloft) 100 MG tabletIndication s:Anxiety TAKE 1 TABLET BY MOUTH EVERY DAY IN THE MORNING 90 tablet 1 5 Active albuterol (Ventolin HFA) 108 (90 Base) MCG/ACT inhalerIndicatio ns:Mild intermittent asthma without complication Inhale 2 puffs every 6 (six) hours if needed for wheezing. 18 g 2 5 Active sodium chloride ([place] Nasal Fonda) 0.65 % nasal sprayIndications :Nasal congestion Administer 1 spray into each nostril if needed for congestion. 30 mL 12 5 07/17/19 Active Active Problems Problem Noted Date Diagnosed Date Encounter for preventive care 07/16/2024 Assessment & Plan (07/16/2024 4:09 PM EST): See HPI Nasal congestion 07/16/2024 Breast nodule 07/16/2024 Missing teeth, acquired 01/23/2024 Edentulous maxilla 12/25/2023 [...] use of insulin 10/22/2022 Assessment & Plan (07/16/2024 4:09 PM EST): Diabetes is: controlled - Lab Results Component Value Date HGBA1C 6.6 (A) 07/16/2024 HGBA1C 6.5 (A) 06/28/2023 HGBA1C 5.8 01/18/2023 - Lab Results Component Value Date CREATININE 0.95 03/23/2024 -Changes: None - Diabetic eye exam: Up-to-date - Diabetic foot exam: Does not apply - Continue lifestyle modifications - Continue current medications - Follow up: 3 months Assessment & Plan (07/03/2023 5:16 PM EST): [...] current interventions Mild intermittent asthma without complication Assessment & Plan (07/16/2024 4:08 PM EST): Patient educated to avoid asthma triggers Albuterol inhaler refilled today Anxiety 10/22/2022 Assessment & Plan (10/22/2022 4:15 [...] of visual image 07/06/2022 Chronic constipation 07/06/2022 Assessment & Plan (07/16/2024 4:08 PM EST): Patient educated to add water and fiber to his diet Refill for his medications done today Follow-up with GI Epididymitis 07/06/2022 Essential hypertension 07/06/2022 Assessment & Plan (07/16/2024 4:08 PM EST): Blood pressure seems to be under control I advised low-sodium diet and weight reduction We will continue with same medication regimen Assessment & Plan (07/03/2023 5:15 PM EST): [...] Encounters Date Type Department Care Team Description 07/24/2024 [facility] Risk Score [facility] () Department [address] [id number] Provider, Population Health Generic 07/17/2024 Telephone [facility] [address] [place] [phone] Za Coles MD Mammo Order Fax 07/16/2024 1:15 PM EST Office Visit [facility] [address] [place] [phone] Za Coles MD Colon cancer screening (Primary Dx); Type 2 diabetes mellitus with hyperglycemia, without long-term current use of insulin ([facility]); Encounter for preventive care; Heartburn; Anxiety; Mild intermittent asthma without complication; Nasal congestion; Essential hypertension; Chronic constipation; Breast nodule 07/16/2024 Travel 07/15/2024 Telephone [facility] [address] [place] [phone] Za Coles MD Chart Prep 06/13/2024 Refill [facility] [address] [place] [phone] Za Coles MD Anxiety from Last 3 Months Immunizations Name Administration Dates Next Due Pneumococcal Conjugate PCV 13 01/09/2019 Family History Medical History Relation Name Comments Diabetes Mother Hypertension Mother Hypertension Sister Relation Name Status Comments Mother Sister Social History Tobacco Use Types Packs/Day Years Used Date Smoking Tobacco: Former Cigarettes 0.3 0.5 Passive Smoke Exposure: Past Smokeless Tobacco: Current Tobacco Cessation:Ready to Q [...] Sign Reading Time Taken Comments Blood Pressure 134/78 07/16/2024 1:22 PM EST Pulse 94 07/16/2024 1:22 PM EST Temperature 37.1 ??C (98.7 ??F) 07/16/2024 1:22 PM ES T Respiratory Rate 17 07/16/2024 1:22 PM EST Oxygen Saturation 96% 06/28/2023 3:45 PM EST Inhaled Oxygen Concentration - - Weight 97.3 kg (214 lb 9.6 oz) 07/16/2024 1:22 P M EST Height 170.2 cm (5' 7 ) 07/16/2024 1:22 PM EST Body Mass Index 33.61 07/16/2024 1:22 PM EST Plan of Treatment Upcoming Encounters Date Type Department Care Team (Late st Contact Info) Description 10/16/2024 11:00 AM EDT Office Visit [facility] [address] [place] [phone] Za Coles MD [address] [place] [address] Health Maintenance Due Date Last Done Comments [...] 07/07/2019 Dental Oral Exam 03/31/2023 09/27/2022, 07/07/2019 Depression Screening 10/23/2023 10/22/2022, 10/23/19 23 COVID-19 Vaccine ( - season) 2024 Influenza Vaccine (#1) 2024 Dental Prophylaxis 05/23/2024 11/20/2023 SDOH Screening 06/20/2024 06/20/2023 Eye Exam 11/23/2024 11/23/2022, 11/10, 11/23/2022, Additional history exists Diabetes: Hemoglobin A1C 01/16/2025 025, 06/28/2023, 01/18/2023, Additional history exists Tobacco Screening 07/16/2025 07/16/2024 Dental X-Ray: Full Mouth 09/28/2025 09/27/2022, 06/14 [...] Procedure Name Priority Date/Time Associated Diagnosis Comments POCT GLYCATED HEMOGLOBIN, TOTAL Routine 07/16/2024 1:23 PM EST Type 2 diabetes mellitus with hyperglycemia, without long-term current use of insulin ([facility]) POCT GLUCOSE Routine 07/16/2024 1:23 PM EST Type 2 diabetes mellitus with hyperglycemia, without long-term current use of insulin ([facility]) PROPHYLAXIS - ADULT Routine 11/20/2023 1 :00 PM EDT Dental plaque Dental calculus PANORAMIC RADIOGRAPHIC IMAGE Routine 09/27/2022 1:30 PM EDT PERIODIC ORAL EVALUATION - ESTABLISHED PATIENT Routine 09/27/2022 1:30 PM EDT INTRAORAL - COMPLETE SERIES OF RADIOGRAPHIC IMAGES Routine 07/07/2019 12:00 AM EST from Last 3 Months or Most Recently Relevant to Health Maintenance Results * (ABNORMAL) POCT HGB A1C (07/16/2024 1:23 PM EST) Hemoglobin A1C 6.6(A) 4.0 - 6.0 % QC Media Lot # [id number] Lot# Expiration Date [id number] Blood 07/16/2024 1:23 PM EST Za Mackey MD POINT OF CARE TEST EN TER/EDIT ORDERABLES Final Result * POCT Glucose (07/16/2024 1:23 PM EST) Glucose Blood, POC 108 60 - 200 mg/dL QC Media Lot # [id number] Lot# Expiration Date [id number] Blood Capillary blood specimen / Unknown 07/16/2024 1:23 PM EST Za Mackey MD POINT OF CARE TEST EN TER/EDIT ORDERABLES Final Result from Last [address] [place] [address] [facility] MEDICAID STAND ADULT Care Teams Forging Dies Final Finisher Relationship Specialty Start Date End Date Za Coles MD [address] [place] [phone] PCP - General Family Medicine 10/22/18
== END 2024-08-21 08:59 | disposition home or self-care (01) ==
LOC: HO.MAMMO 08:58
PROVIDERS: PCP Internal Medicine; Visit Provider Internal Medicine
DX: N62 Hypertrophy of breast (principal)
CPT/HCPCS: 76642; 77062; 77066

== ENCOUNTER → 2024-08-21 09:30 | Outpatient (BNV) | payer MEDICAID, SELFPAY | PROVIDERS: PCP Internal Medicine; Visit Provider Internal Medicine | DX: N62 Hypertrophy of breast (principal) | CPT/HCPCS: 76642; 77062; 77066 ==

== ENCOUNTER 2024-09-04 12:48 | Outpatient (AMB) | payer MEDICAID, SELFPAY ==
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
[2024-09-04 13:03] VITALS: BP 143/92; PULSE 111; BMI 33.5
--- OUTSIDE RECORDS SUMMARY | 2024-09-04 13:28 | XMS_ITS | Encounter Summary ---
Author Organization [employer] Address [address] [place] [address] Care Team Providers Care Net Lead Architect Name Role Phone Za Coles MD Primary Care Provide r Reason for Visit * Reason Comments Med Refill Encounter Details Date Type Department Care Team ([facility] st Contact Info) Description 05/04/2023 Refill [facility] [address] [place], [place] [phone] Za Coles MD [address] [place], [place] [phone] Anxiety Social History Tobacco Use Types Packs/Day [...] Description 10/16/2024 11:00 AM EDT Office Visit [facility] [address] [place], [place] [phone] Za Coles MD [address] [place] [address] [phone] documented as of this encounter Visit Diagnoses Diagnosis Anxiety Anxiety state, unspecified documented in this encounter Care Teams Net Lead Architect Relationship Specialty Start Date End Date Za Coles MD [address] [place] [address] [phone] PCP - General Family Medicine 10/22/18 documented as of this encounter
--- OUTSIDE RECORDS SUMMARY | 2024-09-04 13:28 | XMS_ITS | Encounter Summary ---
Author Organization [employer] Address [address] [facility] 7[address] [place] [address] Care Team Providers Care Loan Documents Closer Name Role Phone Za Coles MD Primary Care Provide r Reason for Visit * Reason Onset Date Comments Med Refill 06/01/2022 Encounter Details Date Type Department Care Team ([facility] st Contact Info) Description 06/01/2022 Telephone [facility] [address] [place], [place] [phone] Za Coles MD [address] [place], [place] [phone] Med Refill Social History Tobacco Use Types [...] for Metformin 850mg to be sent to [facility]/pharmacy #[id number] - [place], [place] - [address] [facility] Please contact [phone] documented in this encounter Plan of Treatment Upcoming Encounters Date Type Department Care Team (Late st Contact Info) Description 10/16/2024 11:00 AM EDT Office Visit [facility] [address] [place] [phone] Za Coles MD [address] [place] [phone] documented as of this encounter Visit Diagnoses Not on filedocumented in this encounter Care Teams Loan Documents Closer Relationship Specialty Start Date End Date Za Coles MD [address] [place] [address] [phone] PCP - General Family Medicine 10/22/18 documented as of this encounter
--- OUTSIDE RECORDS SUMMARY | 2024-09-04 13:28 | XMS_ITS | Clinical Summary ---
Author Organization [employer] Address [address] [facility] [address] [place] [address] Care Team Providers Care Online Media Buyer Name Role Phone Za Coles MD Primary Care Provide r Allergies No known active allergies Medications triamcinolone (Kenalog) 0.1 % ointment Apply topically every 12 (twelve) hours. 06/23/19 20 Active FREESTYLE LITE test strip CHECK BY FINGERSTICK ROUTE 2 TIMES EVERY DAY 100 strip 3 12/14/19 23 Active amLODIPine (Norvasc) 10 MG tabletIndicatio ns:Essential hypertension Take 1 tablet (10 mg) by mouth Once per day. 90 tablet 2 07/17/19 25 Active bisacodyl (Dulcolax) 5 MG EC tabletIndicatio ns:Chronic constipation Take 2 tablets (10 mg) by mouth if needed each day for constipation. 30 tablet 3 07/17/19 25 Active famotidine (Pepcid) 20 MG tabletIndicatio ns:Heartburn Take 1 tablet (20 mg) by mouth 2 times daily. 180 tablet 3 07/17/19 25 Active hydrOXYzine HCl (Atarax) 50 MG tabletIndicatio ns:Anxiety Take 1 tablet (50 mg) by mouth every 12 (twelve) hours if needed for itching. 60 tablet 2 07/17/19 25 Active metFORMIN (Glucophage) 850 MG tabletIndicatio ns:Type 2 diabetes mellitus with hyperglycemia, without long-term current use of insulin (CMS/HCC) TAKE 1 TABLET BY MOUTH TWICE A DAY WITH BREAKFAST AND DINNER 180 tablet 1 07/17/19 25 Active sertraline (Zoloft) 100 MG tabletIndicatio ns:Anxiety TAKE 1 TABLET BY MOUTH EVERY DAY IN THE MORNING 90 tablet 1 07/17/19 25 Active albuterol (Ventolin HFA) 108 (90 Base) MCG/ACT inhalerIndicati ons:Mild intermittent asthma without complication Inhale 2 puffs every 6 (six) hours if needed for wheezing. 18 g 2 07/17/19 25 Active sodium chloride (Custer Nasal Freeman) 0.65 % nasal sprayIndication s:Nasal congestion Administer 1 spray into each nostril if needed for congestion. 30 mL 12 07/17/19 25 026 Active docusate sodium (Colace) 100 MG capsuleIndicati ons:Chronic constipation TAKE 1 CAPSULE (100 MG) BY MOUTH EVERY 12 (TWELVE) HOURS. 180 capsule 08/22/19 25 Active docusate sodium (Colace) 100 MG capsuleIndicati ons:Chronic constipation Take 1 capsule (100 mg) by mouth every 12 (twelve) hours. 60 capsule 2 07/17/19 25 025 Discontinued Active Problems Problem Noted Date [...] Encounters Date Type Department Care Team Description 08/21/2024 Refill [facility] [address] [place] [phone] Za Coles MD Chronic constipation 07/24/2024 Population Health Risk Score [facility] ([facility]) Department [address] [phone] Provider, Population Health Generic 07/17/2024 Telephone [facility] [address] [place] [phone] Za Coles MD Mammo Order Fax 07/16/2024 1:15 PM EST Office Visit [facility] [address] [place] [phone] Za Coles MD Colon cancer screening (Primary Dx); Type 2 diabetes mellitus with hyperglycemia, without long-term current use of insulin ([facility]/HCC); Encounter for preventive care; Heartburn; Anxiety; Mild intermittent asthma without complication; Nasal congestion; Essential hypertension; Chronic constipation; Breast nodule 07/16/2024 Travel 07/15/2024 Telephone [facility] [address] [place] [address] [place] [phone] Za Coles MD Chart Prep 06/13/2024 Refill [facility] [address] [place] [address] Za Coles MD Anxiety from Last 3 [...] your housing situation today? I have amita suzan 02/26/[address] you li [...] the past 12 months, has t he [employer], gas, oil or water company threatened to [...] Description 10/16/2024 11:00 AM EDT Office Visit [facility] [address] [place], [place] [phone] Za Coles MD [address] [place], [place] [phone] Health Maintenance Due Date Last Done Comments [...] 09/27/2022, 07/07/2019 Depression Screening 10/23/2023 10/22/2022, 10/23/19 COVID-19 Vaccine ( season) 2024 Influenza Vaccine (#1) 2024 Dental [...] Procedure Name Priority Date/Time Associated Diagnosis Comments BI US BREAST LIMITED RIGHT Routine 08/21/2024 9:40 AM EDT Breast nodule BI MAMMOGRAM DIAGNOSTIC TOMOSYNTHESIS BILATERAL Routine 08/21/2024 9:05 AM EDT Breast nodule POCT GLYCATED HEMOGLOBIN, TOTAL Routine 07/16/2024 1:23 PM EST Type 2 diabetes mellitus with hyperglycemia, without long-term current use of insulin ([facility]) POCT GLUCOSE Routine 07/16/2024 1:23 PM EST Type 2 diabetes mellitus with hyperglycemia, without long-term current use of insulin ([facility]) PROPHYLAXIS - ADULT Routine 11/20/2023 1 :00 PM EDT Dental plaque Dental calculus PANORAMIC RADIOGRAPHIC IMAGE Routine 09/27/2022 1:30 PM EDT PERIODIC ORAL EVALUATION - ESTABLISHED PATIENT Routine 09/27/2022 1:30 PM EDT INTRAORAL - COMPLETE SERIES OF RADIOGRAPHIC IMAGES Routine 07/07/2019 12:00 AM EST from Last 3 Months or Most Recently Relevant to Health Maintenance Results * BI US Breast Limited Right (08/21/2024 9:40 AM EDT) Anatomical Region Laterality Modality Breast Right Ultrasound 08/21/2024 9:40 AM EDT Narrative 08/21/2024 3:20 PM EDT ? [facility] [place] ? [address] ?[place] [address] ? Ultrasound Report ? Signed ? Patient: Schaefre Fink,Willy V ?MR#: MM ?? [id number] ? : 1975 ?Acct:[id number] ? Age/Sex: 49 / M ?ADM Date: 08/21/24 ? Loc: HO.MAMMO ? Attending Dr: Za Mackey MD ? Ordering Physician: Za Coles MD ?? Date of Service: 08/21/24 ?? Procedure(s): US breast RT limited mamm only ?? Accession Number(s): [id number] ? cc: Za Coles MD ? EXAMINATION: ?? MM DIAGNOSTIC DIGITAL BREAST TOMOSYNTHESIS, BILATERAL ?? Bilateral Limited ultrasound. ? CLINICAL INFORMATION: ? Bilateral retroareolar breast palpable lump for 2 to 3 weeks. Patient ?? has limitations due to history of accident right arm amputated and ?? extreme skin scarring on the right. Unable to obtain right CC imaging ?? projections due to patient's limitations. ? COMPARISON: ?? Mammography: Comparison is made with relevant prior exams. ? TECHNIQUE: ?? Digital breast mammography with tomosynthesis is performed in both the ?? craniocaudal and mediolateral oblique views along with computer-aided ?? detection (CAD). ? FINDINGS: ?? There is bilateral right greater than left gynecomastia. ?? Moderate nodular right and minimal left. ? There are no significant masses, abnormal calcifications, or other ?? abnormalities. ? Targeted color Doppler ultrasound demonstrates moderate retroareolar ?? right gynecomastia and mild retroareolar left gynecomastia. There is no ?? suspicious sonographic abnormality. ? Results are provided to the patient at time of visit by the ?? technologist. ? US/US breast RT limited mamm only ?? IMPRESSION: ?? Bilateral right greater than left gynecomastia. Recommend clinical ?? evaluation and follow-up. ? ASSESSMENT: ? BI-RADS BI-RADS 2 - Benign Findings ? RECOMMENDATION: ?? Clinical followup ? Electronically signed by: ??Omaira Metz DO ??08/21/2024 03:18 PM EDT ? Dictated By: ?Omaira Metz DO ? Signed By: ?<Electronically signed by Omaira Metz, DO in OV> ? 08/21/24 1518 ? DD/ 0940 ? TD/TT: 08/21/24 0952 ? Director Market Intelligence: ? Procedure Note Kishore, Marzena - 08/21/2024 [place] [facility] [address] [place] [address] Ultrasound Report Signed Patient: Willy Paniagua R#: [id number] : 1975Acct:[id number] Age/Sex: 49 / MADM Date: 08/21/24 Loc: HO.MAMMO Attending Dr: Za Mackey MD Ordering Physician: Za Coles MD Date of Service: 08/21/24 Procedure(s): US breast RT limited mamm only Accession Number(s): [id number] cc: Za Coles MD EXAMINATION: MM DIAGNOSTIC DIGITAL BREAST TOMOSYNTHESIS, BILATERAL Bilateral Limited ultrasound. CLINICAL INFORMATION: Bilateral retroareolar breast palpable lump for 2 to 3 weeks. Patient has limitations due to history of accident right arm amputated and extreme skin scarring on the right. Unable to obtain right CC imaging projections due to patient's limitations. COMPARISON: Mammography: Comparison is made with relevant prior exams. TECHNIQUE: Digital breast mammography with tomosynthesis is performed in both the craniocaudal and mediolateral oblique views along with computer-aided detection (CAD). FINDINGS: There is bilateral right greater than left gynecomastia. Moderate nodular right and minimal left. There are no significant masses, abnormal calcifications, or other abnormalities. Targeted color Doppler ultrasound demonstrates moderate retroareolar right gynecomastia and mild retroareolar left gynecomastia. There is no suspicious sonographic abnormality. Results are provided to the patient at time of visit by the technologist. US/US breast RT limited mamm only IMPRESSION: Bilateral right greater than left gynecomastia. Recommend clinical evaluation and follow-up. ASSESSMENT: BI-RADS BI-RADS 2 - Benign Findings RECOMMENDATION: Clinical followup Electronically signed by: Omaira Metz DO 08/21/2024 03:18 PM EDT RP Dictated By: Omaira Metz DO Signed By: <Electronically signed by Omaira Metz DO in OV> 08/21/24 1518 DD/ 0940 TD/TT: 08/21/24 0952 Director Market Intelligence: Za Mackey MD IMG US PROCEDURES Fin al Result * BI Mammogram Diagnostic Tomosynthesis Bilateral (08/21/2024 9:05 AM EDT) Anatomical Region Laterality Modality Breast Bilateral Mammography 08/21/2024 9:05 AM EDT Narrative 08/21/2024 3:20 PM EDT ? [facility] [place] ? [address] ?[place] [address] ?[phone] ? Mammography Report ? Signed ? Patient: Schaefer Fink,Willy V ?MR#: MM ?? [id number] ? : 1975 ?Acct:[id number] ? Age/Sex: 49 / M ?ADM Date: 04/11/25 ? Loc: HO.MAMMO ? Attending Dr: Za Mackey MD ? Ordering Physician: Za Coles MD ?Results: ?? 2Benign Findings ? Date of Service: 08/21/24 ?Follow Up: 1 Year From Orig ?? inal Mammogram ? Procedure(s): MM tomosynthesis diagnostic BI ?? Accession Number(s): [id number] ? cc: Za Coles MD ? EXAMINATION: ?? MM DIAGNOSTIC DIGITAL BREAST TOMOSYNTHESIS, BILATERAL ?? Bilateral Limited ultrasound. ? CLINICAL INFORMATION: ? Bilateral retroareolar breast palpable lump for 2 to 3 weeks. Patient ?? has limitations due to history of accident right arm amputated and ?? extreme skin scarring on the right. Unable to obtain right CC imaging ?? projections due to patient's limitations. ? COMPARISON: ?? Mammography: Comparison is made with relevant prior exams. ? TECHNIQUE: ?? Digital breast mammography with tomosynthesis is performed in both the ?? craniocaudal and mediolateral oblique views along with computer-aided ?? detection (CAD). ? FINDINGS: ?? There is bilateral right greater than left gynecomastia. ?? Moderate nodular right and minimal left. ? There are no significant masses, abnormal calcifications, or other ?? abnormalities. ? Targeted color Doppler ultrasound demonstrates moderate retroareolar ?? right gynecomastia and mild retroareolar left gynecomastia. There is no ?? suspicious sonographic abnormality. ? Results are provided to the patient at time of visit by the ?? technologist. ? MM/MM tomosynthesis diagnostic BI ?? IMPRESSION: ?? Bilateral right greater than left gynecomastia. Recommend clinical ?? evaluation and follow-up. ? ASSESSMENT: ? BI-RADS BI-RADS 2 - Benign Findings ? RECOMMENDATION: ?? Clinical followup ? Electronically signed by: ??Omaira Metz DO ??08/21/2024 03:18 PM EDT ? Dictated By: ?Omaira Metz DO ? Signed By: ?<Electronically signed by Omaira Metz, DO in OV> ? 08/21/24 1518 ? DD/ 0905 ? TD/TT: 08/21/24926 ? Director Market Intelligence: ? Procedure Note Doncarlter, Image - 08/21/2024 [place] [facility] [address] [place] [address] Mammography Report Signed Patient: Willy Paniagua VMR#: [id number] : 1975Acct:[id number] Age/Sex: 49 / MADM Date: 08/21/24 Loc: HO.MAMMO Attending Dr: Za Mackey MD Ordering Physician: Za Coles MDResults: 2Benign Findings Date of Service: 08/21/24Follow Up: 1 Year From Orig ina Mammogram Procedure(s): MM tomosynthesis diagnostic BI Accession Number(s): [id number] cc: Za Coles MD EXAMINATION: MM DIAGNOSTIC DIGITAL BREAST TOMOSYNTHESIS, BILATERAL Bilateral Limited ultrasound. CLINICAL INFORMATION: Bilateral retroareolar breast palpable lump for 2 to 3 weeks. Patient has limitations due to history of accident right arm amputated and extreme skin scarring on the right. Unable to obtain right CC imaging projections due to patient's limitations. COMPARISON: Mammography: Comparison is made with relevant prior exams. TECHNIQUE: Digital breast mammography with tomosynthesis is performed in both the craniocaudal and mediolateral oblique views along with computer-aided detection (CAD). FINDINGS: There is bilateral right greater than left gynecomastia. Moderate nodular right and minimal left. There are no significant masses, abnormal calcifications, or other abnormalities. Targeted color Doppler ultrasound demonstrates moderate retroareolar right gynecomastia and mild retroareolar left gynecomastia. There is no suspicious sonographic abnormality. Results are provided to the patient at time of visit by the technologist. MM/MM tomosynthesis diagnostic BI IMPRESSION: Bilateral right greater than left gynecomastia. Recommend clinical evaluation and follow-up. ASSESSMENT: BI-RADS BI-RADS 2 - Benign Findings RECOMMENDATION: Clinical followup Electronically signed by: Omaira Metz DO 08/21/2024 03:18 PM EDT Dictated By: Omaira Metz DO Signed By: <Electronically signed by Omaira Metz DO in OV> 08/21/24 1518 DD/ 4 TD/TT: 08/21/24926 Director Market Intelligence: Za Mackey MD IMG BI PROCEDURES Fin al Result * (ABNORMAL) POCT HGB A1C (07/16/2024 1:23 PM EST) Hemoglobin A1C 6.6(A) 4.0 - 6.0 % QC Media Lot # [id number] Lot# Expiration Date Blood 07/16/2024 1:23 PM EST Result [facility] Za Mackey MD POINT OF CARE TEST EN TER/EDIT ORDERABLES Final Result * POCT Glucose (07/16/2024 1:23 PM EST) Glucose Blood, POC 108 60 - 200 mg/dL QC Media Lot # [id number] Lot# Expiration Date [id number] Blood Capillary blood specimen / Unknown 07/16/2024 1:23 PM EST Za Mackey MD POINT OF CARE TEST EN TER/EDIT ORDERABLES Final Result from Last 3 Months Insurance [place] [facility] MEDICAID STAND ADULT Care Teams Online Media Buyer Relationship Specialty Start Date End Date Za Coles MD [address] [place] [phone] PCP - General Family Medicine 10/22/18
== END 2024-09-04 14:07 | disposition home or self-care (01) ==
LOC: HO.HGI 12:49
PROVIDERS: PCP Internal Medicine; Visit Provider Nurse Practitioner
DX: K59.04 Chronic idiopathic constipation (principal); K21.9 Gastro-esophageal reflux disease without esophagitis
CPT/HCPCS: 99214

== ENCOUNTER → 2024-09-04 12:48 | Outpatient (BNVA) | payer MEDICAID, SELFPAY | PROVIDERS: PCP Internal Medicine; Visit Provider Nurse Practitioner | DX: Z01.818 Encounter for other preprocedural examination (principal); K21.9 Gastro-esophageal reflux disease without esophagitis; K59.04 Chronic idiopathic constipation | CPT/HCPCS: 99212 ==

== ENCOUNTER 2024-09-08 18:43 | Emergency (ER) | payer MEDICAID, SELFPAY ==
[2024-09-08 19:03] VITALS: BP 158/89; PULSE 110; RESP 20; TEMP 37.5; O2SAT 97; BMI 31.2
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
[2024-09-08 19:25] LABS: MANUAL DIFF FLAG NO
[2024-09-08 19:27] LABS: Basophils Percent Auto 0.2 % (0-2); Eosinophils Absolute Auto 0.1 X10*3/uL (0.0-0.4); Eosinophils Percent Auto 1.1 % (0-4); Hematocrit 42.5 % (42.0-52.0); Hemoglobin 13.9 g/dl (14.0-18.0); Imm Gran Abs Auto 0.03 X10*3/uL (0.00-0.03); Imm Gran Pct Auto 0.3 % (0.0-0.4); Lymphocytes Absolute Auto 1.8 X10*3/uL (1.2-4.9); Lymphocytes Percent Auto 17.8 % (20-40); Mean Corpuscular HGB Conc 32.7 g/dl (31.0-36.0); Mean Corpuscular Hemoglobin 25.8 pg (27.0-33.0); Mean Platelet Volume 9.7 fL (9.4-12.4); Monocytes Absolute Auto 0.7 X10*3/uL (0.1-1.2); Monocytes Percent Auto 6.8 % (2-11); Neutrophils Absolute Auto 7.3 x10*3/uL (2.0-8.3); Neutrophils Percent Auto 73.8 % (45-73); Platelet Count 257 X10*3/uL (160-400); Red Blood Count 5.38 X10*6/uL (4.60-5.80); Red Cell Distribution Width 14.9 % (11.0-16.0); White Blood Count 9.9 X10*3/uL (4.8-10.8)
[2024-09-08 19:44] LABS: Alanine Aminotransferase 42 U/L (0-40); Albumin Level 4.4 g/dL (3.5-5.0); Alkaline Phosphatase 115 U/L (39-117); Anion Gap 15 (12-20); Aspartate Amino Transferase 21 U/L (5-37); Bilirubin Total 0.2 mg/dL (0.0-1.0); Blood Urea Nitrogen 17 mg/dL (9-16); Calcium 10.1 mg/dL (8.4-10.2); Carbon Dioxide 25 mmol/L (22-29); Chloride 105 mmol/L (96-108); Creatinine Clr Calc Pharmacy 156.2; Estimated Glomerular Filt Rate > 60; Glucose Random 157 mg/dL (60-115); Lipase 21 U/L (8-78); Potassium 4.2 mmol/L (3.3-5.1); Sodium 141 mmol/L (135-145); Total Protein 8.3 g/dL (6.5-8.0)
[2024-09-08 19:52] LABS: Appearance Urine Clear; Color Urine Yellow; Glucose Urine UA Negative (Negative); Leukocyte Esterase Urine Negative (Negative); Nitrite Urine Negative (Negative); PH 5.5 (5.0-9.0); Specific Gravity - Urine 1.015 (1.005-1.025); UMIC TRIGGER UACC YES; Urine Blood Negative (Negative); Urine Ketones Negative (Negative); Urine Protein 30 (1+) mg/dL (Neg-Trace)
[2024-09-08 19:54] LABS: Bacteria Urine None Seen (None Seen); RBC Urine 0-2 /HPF (0-2); Squamous Epithelial Cell Urine 0-2 /HPF (0-2); WBC Urine 0-5 /HPF (0-5)
[2024-09-08 20:06] LABS: Influenza A PCR NEGATIVE (Negative); Influenza B PCR NEGATIVE (Negative); Resp Syncy Virus RNA Qual PCR NEGATIVE (Negative); SARS COV2 PCR INHOUSE NEGATIVE (Negative)
--- OUTSIDE RECORDS SUMMARY | 2024-09-08 21:59 | XMS_ITS | Encounter Summary ---
Author Organization [employer] Address [address] [place] [address] Care Team Providers Care Sales Engagement Manager Name Role Phone Za Coles MD Primary Care Provide r Reason for Visit * Reason Onset Date Comments Med Refill 06/01/2022 Encounter Details Date Type Department Care Team ([facility] st Contact Info) Description 06/01/2022 Telephone [facility] [address] [place], [place] [phone] Za Coles MD [address] [place], [place] [phone] Med Refill Social History Tobacco Use Types [...] for Metformin 850mg to be sent to [facility]/pharmacy #[id number] - [place], [place] - [address] Please contact [phone] documented in this encounter Plan of Treatment Upcoming Encounters Date Type Department Care Team (Late st Contact Info) Description 10/16/2024 11:00 AM EDT Office Visit [facility] [address] [place] [phone] Za Coles MD [address] [place] [phone] documented as of this encounter Visit Diagnoses Not on filedocumented in this encounter Care Teams Sales Engagement Manager Relationship Specialty Start Date End Date Za Coles MD [address] [place] [address] [phone] PCP - General Family Medicine 10/22/18 documented as of this encounter
--- OUTSIDE RECORDS SUMMARY | 2024-09-08 21:59 | XMS_ITS | Encounter Summary ---
Author Organization [employer] Address [address] [place] [address] Care Team Providers Care Vocational Examiner Name Role Phone Za Coles MD Primary Care Provide r Reason for Visit * Reason Comments Med Refill Encounter Details Date Type Department Care Team ([facility] st Contact Info) Description 05/04/2023 Refill [facility] [address] [place], [place] [phone] Za Coles MD [address] [place], [place] [phone] Anxiety Social History Tobacco Use Types Packs/Day [...] Description 10/16/2024 11:00 AM EDT Office Visit [facility] [address] [place], [place] [phone] Za Coles MD [address] [place] [address] [phone] documented as of this encounter Visit Diagnoses Diagnosis Anxiety Anxiety state, unspecified documented in this encounter Care Teams Vocational Examiner Relationship Specialty Start Date End Date Za Coles MD [address] [place] [address] [phone] PCP - General Family Medicine 10/22/18 documented as of this encounter
--- OUTSIDE RECORDS SUMMARY | 2024-09-08 21:59 | XMS_ITS | Clinical Summary ---
Author Organization [employer] Address [address] [facility] 7t [place] [address] Care Team Providers Care Business Improvement Manager Name Role Phone Za Coles MD [...] g 2 07/17/19 25 Active sodium chloride (Cross Nasal [place]) 0.65 % nasal sprayIndication s:Nasal congestion Administer [...] Encounters Date Type Department Care Team Description 09/08/2024 Orders Only GENERIC EXTERNAL DATA DEPARTMENT Provider, Generic External Data 08/21/2024 Refill [facility] [address] [place] [phone] Za Coles MD Chronic constipation 07/24/2024 Population Health Risk Score [facility] (C3) Department [address] [phone] Provider, Population Health Generic 07/17/2024 Telephone [facility] [address] [place] [phone] Za Coles MD Mammo Order Fax 07/16/2024 1:15 PM EST Office Visit [facility] [address] [place] [phone] Za Coles MD Colon cancer screening (Primary Dx); Type 2 diabetes mellitus with hyperglycemia, without long-term current use of insulin ([facility]/HCC); Encounter for preventive care; Heartburn; Anxiety; Mild intermittent asthma without complication; Nasal congestion; Essential hypertension; Chronic constipation; Breast nodule 07/16/2024 Travel 07/15/2024 Telephone [facility] [address] [place] [address] Za Coles MD Chart Prep 06/13/2024 Refill [facility] [address] [place] [address] Za Coles MD Anxiety from Last 3 [...] is your housing situation today? I have amitaandres mares 02/26/[address] you [...] t he electric, gas, oil or water [employer] threatened to shut off services in your [...] Description 10/16/2024 11:00 AM EDT Office Visit [facility] [address] [place] [address] Za Coles MD [address] [place] [address] Health Maintenance Due Date Last Done Comments [...] Procedure Name Priority Date/Time Associated Diagnosis Comments URINALYSIS, COMPLETE, WITH REFLEX TO CULTURE Routine 09/08/2024 7:41 PM EDT LIPASE Routine 09/08/2024 7:20 PM EDT COMPREHENSIVE METABOLIC PANEL Routine 09/08/2024 7:20 PM EDT CBC WITH AUTO DIFFERENTIAL Routine 09/08/2024 7:20 PM EDT SARS COV2/INFLUENZA A/B AND RSV RNA QL NAAT Routine 09/08/2024 7:20 PM EDT BI US BREAST LIMITED RIGHT Routine 08/21/2024 9:40 AM EDT Breast nodule BI MAMMOGRAM DIAGNOSTIC TOMOSYNTHESIS BILATERAL Routine 08/21/2024 9:05 AM EDT Breast nodule POCT GLYCATED HEMOGLOBIN, TOTAL Routine 07/16/2024 1:23 PM EST Type 2 diabetes mellitus with hyperglycemia, without long-term current use of insulin ([facility]) POCT GLUCOSE Routine 07/16/2024 1:23 PM EST Type 2 diabetes mellitus with hyperglycemia, without long-term current use of insulin ([facility]) PROPHYLAXIS - ADULT Routine 11/20/2023 1 :00 PM EDT Dental plaque Dental calculus PANORAMIC RADIOGRAPHIC IMAGE Routine 09/27/2022 1:30 PM EDT PERIODIC ORAL EVALUATION - ESTABLISHED PATIENT Routine 09/27/2022 1:30 PM EDT INTRAORAL - COMPLETE SERIES OF RADIOGRAPHIC IMAGES Routine 07/07/2019 12:00 AM EST from Last 3 Months or Most Recently Relevant to Health Maintenance Results * (ABNORMAL) Urinalysis, Complete, with Reflex to Culture (09/08/2024 7:41 PM EDT) Color Urine Yellow [facility] Appearance Urine Clear [facility] PH 5.5 5.0 - 9.0 [facility] Glucose Urine UA Negative Negative mg/dL [facility] Urine Blood Negative Negative [facility] Specific [place] - Urine 1.015 1.005 - 1.025 [facility] Urine Protein 30 (1+)(A) Neg-Trace mg/dL [facility] Urine Ketones Negative Negative mg/dL [facility] Nitrite Urine Negative Negative [facility] Leukocyte Esterase Urine Negative Negative [facility] RBC Urine 0-2 0 - 2 /HPF [facility] Urine WBC 0-5 0 - 5 /HPF [facility] Urine Squamous Epithelial Cell 0-2 0 - 2 /HPF [facility] Urine Bacteria None Seen None Seen [facility] Hyaline Casts, Urine 3-5 0 - 2 /LPF [facility] 09/08/2024 7:41 PM EDT 09/08/2024 7:45 PM EDT Narrative [facility] - 09/08/2024 7:56 PM EDT [id number], Clean Catch Generic External Data Provider LAB URINE ORDERAB LES Final Result Performing Organization Address [facility]/ZIP Co de Phone Number [facility] [address] [place] [phone] * SARS-CoV-2 RNA, Influenza A/B, and RSV RNA, Ql NAAT (09/08/2024 7:20 PM EDT) Influenza A PCR NEGATIVE Negative [facility] Influenza B PCR NEGATIVE Negative [facility] Resp Syncy Virus RNA Qual PCR NEGATIVE Negative [facility] SARS COV2 PCR NEGATIVE Negative [facility] Comment:All test results mus t be correlated with clinical findings.Negative results do not preclude SARS-CoV2, influenza Avirus, influenza B virus and/or RSV infectionand should not be used as the sole basis for treatment orother patient management decisions. Negative results must becombined with clinical observations, patient history, andepidemiological information.This test has not been evaluated for monitoring treatment ofinfection.This test has been authorized by the FDA under an EmergencyUse Authorization (EUA) for use by authorized laboratories.Testing performed on the [employer] GeneXpert utilizingreal-time RT-PCR.All SARS CoV2 and positive influenza A/B results arereported to [facility]. 09/08/2024 7:20 PM EDT 09/08/2024 7:24 PM EDT Generic External Data Provider LAB MICROBIOLOGY - GENERAL ORDERABLES Final Result Performing Organization Address [facility]/ZIP Co de Phone Number [facility] [address] [place] [phone] * (ABNORMAL) CBC auto differential (09/08/2024 7:20 PM EDT) White Blood Count 9.9 4.8 - 10.8 X10*3/uL [facility] Red Blood Count 5.38 4.60 - 5.80 X10*6/uL [facility] Hemoglobin 13.9(L) 14.0 - 18.0 g/dl [facility] Hematocrit 42.5 42.0 - 52.0 % [facility] Mean Corpuscular Volume 79.0(L) 80.0 - 98.0 fL [facility] Mean Corpuscular Hemoglobin 25.8(L) 27.0 - 33.0 pg [facility] Mean Corpuscular HGB Conc 32.7 31.0 - 36.0 g/dl [facility] Red Cell Distribution Width 14.9 11.0 - 16.0 % [facility] Platelet Count 257 160 - 400 X10*3/uL [facility] Mean Platelet Volume 9.7 9.4 - 12.4 fL [facility] Neutrophils Percent Auto 73.8(H) 45 - 73 % [facility] Imm Gran Pct Auto 0.3 0.0 - 0.4 % [facility] Lymphocytes Percent Auto 17.8(L) 20 - 40 % [facility] Monocytes Percent Auto 6.8 2 - 11 % [facility] Eosinophils Percent Auto 1.1 0 - 4 % [facility] Basophils Percent Auto 0.2 0 - 2 % [facility] NRBC Pct Auto 0.0 0.0 - 0.2 /100WBC [facility] Neutrophils Absolute Auto 7.3 2.0 - 8.3 x10*3/uL [facility] Imm Gran Abs Auto 0.03 0.00 - 0.03 X10*3/uL [facility] Lymphocytes Absolute Auto 1.8 1.2 - 4.9 X10*3/uL [facility] Monocytes Absolute Auto 0.7 0.1 - 1.2 X10*3/uL [facility] Eosinophils Absolute Auto 0.1 0.0 - 0.4 X10*3/uL [facility] Basophils Absolute Auto 0.0 0.0 - 0.2 X10*3/uL [facility] NRBC Abs Auto 0.000 0.0 - 0.012 X10*3/uL [facility] 09/08/2024 7:20 PM EDT 09/08/2024 7:24 PM EDT us Generic External Data Provider LAB BLOOD ORDERAB LES Final Result [facility] [address] [place] [phone] * Lipase (09/08/2024 7:20 PM EDT) Pathologist [facility] Lipase 21 8 - 78 U/L [facility] 09/08/2024 7:20 PM EDT 09/08/2024 7:24 PM EDT Generic External Data Provider LAB BLOOD ORDERAB LES Final Result Performing Organization Address City/[facility]/ZIP Co de Phone Number [facility] [address] [place] [address] [phone] * (ABNORMAL) Comprehensive Metabolic Panel (09/08/2024 7:20 PM EDT) Pathologist [facility] Sodium 141 135 - 145 mmol/L [facility] Potassium 4.2 3.3 - 5.1 mmol/L [facility] Chloride 105 96 - 108 mmol/L [facility] Carbon Dioxide 25 22 - 29 mmol/L [facility] Anion Gap 15 12 - 20 [facility] Urea Nitrogen (BUN) 17(H) 9 - 16 mg/dL [facility] Creatinine, Serum 0.73 0.5 - 1.4 mg/dL [facility] Creatinine Clr Calc Pharmacy 156.2 [facility] Comment:eGFR (calculated fro m the MDRD study equation) and eCrCl(calculated from the Cockcroft-Gault equation) are based ondifferent parameters and may not yield comparable results.If eCrCl result is absurd, please check patient'sheight/weight. Estimated Glomerular Filt Rate >60 [facility] Comment:Chronic Kidney Disea se: Estimated GFR < 60 mL/min/1.17o5Wopqza Kidney Disease: Estimated GFR < 15 mL/min/1.73m2 Glucose 157(H) 60 - 115 mg/dL [facility] Calcium 10.1 8.4 - 10.2 mg/dL [facility] Bilirubin, Total 0.2 0.0 - 1.0 mg/dL [facility] Aspartate Amino Transferase 21 5 - 37 U/L [facility] Alanine Aminotransferase 42(H) 0 - 40 U/L [facility] Total Protein 8.3(H) 6.5 - 8.0 g/dL [facility] Albumin Level 4.4 3.5 - 5.0 g/dL [facility] Alkaline Phosphatase 115 39 - 117 U/L [facility] 09/08/2024 7:20 PM EDT 09/08/2024 7:24 PM EDT us Generic External Data Provider LAB BLOOD ORDERAB LES Final Result Performing Organization Address City/State/[facility] Co de Phone Number [facility] [address] [place] [address] [phone] * BI US Breast Limited Right (08/21/2024 9:40 AM EDT) Anatomical Region Laterality Modality Breast Right Ultrasound 08/21/2024 9:40 AM EDT Narrative 08/21/2024 3:20 PM EDT ? [facility] [place] ? [address] ?[place] [address] ? Ultrasound Report ? Signed ? Patient: Schaefer Fink,Willy V ?MR#: [id number] ?? [id number] ? : 1975 ?Acct:[id number] ? Age/Sex: 49 / M ?ADM Date: 04/11/25 ? Loc: HO.MAMMO ? Attending Dr: Za Mackey MD ? Ordering Physician: Za Coles MD ?? Date of Service: 08/21/24 ?? Procedure(s): US breast RT limited mamm only ?? Accession Number(s): [id number] ? cc: Za Coles MD ? EXAMINATION: [...] ??Omaira Metz DO ??08/21/2024 03:18 PM EDT ?? RP ? Dictated By: ?Omaira Metz DO ? Signed By: ?<Electronically signed by Omaira Metz, DO in OV> ? 08/21/24 1518 ? DD/ 0940 ? TD/TT: 08/21/24 0952 ? [place]: ? Procedure Note Kishore, Image - 08/21/2024 [facility] [address] [place] [address] Ultrasound Report Signed Patient: Willy Paniagua R#: [id number] : 1975Acct:[id number] Age/Sex: 49 / MADM Date: 08/21/24 Loc: HO.MAMMO Attending Dr: Za Mackey MD Ordering Physician: Za Coles MD Date of Service: 08/21/24 Procedure(s): US breast RT limited mamm only Accession Number(s): [id number] cc: Za Coles MD EXAMINATION: MM DIAGNOSTIC [...] 08/21/24 1518 DD/ 0940 TD/TT: 08/21/24 0952 [place]: us Za Mackey MD IMG US PROCEDURES Fin al Result * BI Mammogram Diagnostic Tomosynthesis Bilateral (08/21/2024 9:05 AM EDT) Anatomical Region Laterality Modality Breast Bilateral Mammography 08/21/2024 9:05 AM EDT Narrative 08/21/2024 3:20 PM EDT ? [facility] ? [address] ?[place] [address] ?[phone] ? Mammography Report ? Signed ? Patient: Schaefer Fink,Willy V ?MR#: [id number] ?? [id number] ? : 1975 ?Acct:[id number] ? Age/Sex: 49 / M ?ADM Date: 08/21/24 ? Loc: HO.MAMMO ? Attending Dr: Za Mackey MD ? Ordering Physician: Za Coles MD ?Results: ?? 2Benign Findings ? Date of Service: 08/21/24 ?Follow Up: 1 Year From Orig ?? inal Mammogram ? Procedure(s): MM tomosynthesis diagnostic BI ?? Accession Number(s): [id number] ? cc: Za Coles MD ? EXAMINATION: [...] ??Omaira Metz DO ??08/21/2024 03:18 PM EDT ?? RP ? Dictated By: ?Omaira Metz DO ? Signed By: ?<Electronically signed by Omaira Metz, DO in OV> ? 08/21/24 1518 ? DD/ 09 ? TD/TT: 08/21/24926 ? [place]: ? Procedure Note Kishore, Marzena - 08/21/2024 [facility] [address] [place], [place] [address] Mammography Report Signed Patient: Willy Paniagua R#: [id number] : 1975Acct:[id number] Age/Sex: 49 / MADM Date: 08/21/24 Loc: HO.MAMMO Attending Dr: Za Mackey MD Ordering Physician: Za Coles MDResults: 2Benign Findings Date of Service: 08/21/24Follow Up: 1 Year From [facility] Mammogram Procedure(s): MM tomosynthesis diagnostic BI Accession Number(s): [id number] cc: Za Coles MD EXAMINATION: MM DIAGNOSTIC [...] Metz DO in OV> 08/21/24 1518 DD/ 0905 TD/TT: 08/21/24 0927 [place]: us Za Mackey MD IMG BI PROCEDURES Fin al Result * (ABNORMAL) POCT HGB A1C (07/16/2024 1:23 PM EST) Hemoglobin A1C 6.6(A) 4.0 - 6.0 % QC Media Lot # [id number] Lot# Expiration Date Blood 07/16/2024 1:23 PM EST Za Mackey MD POINT OF CARE TEST EN TER/EDIT ORDERABLES Final Result * POCT Glucose (07/16/2024 1:23 PM EST) Glucose Blood, POC 108 60 - 200 mg/dL QC Media Lot # [id number] Lot# Expiration Date [id number] Blood Capillary blood specimen / Unknown 07/16/2024 1:23 PM EST Za Mackey MD POINT OF CARE TEST EN TER/EDIT ORDERABLES Final Result from Last [address] [place] [address] C3 [facility] MEDICAID STAND ADULT Care Teams Business Improvement Manager Relationship Specialty Start Date End Date Za Coles MD [address] [place] [phone] PCP - General Family Medicine 10/22/18
--- OUTSIDE RECORDS SUMMARY | 2024-09-08 21:59 | XMS_ITS | Encounter Summary ---
Author Organization [employer] [facility] Address [address] [facility] 7t [place] [address] Care Team Providers Care Marine Steward Name Role Phone Za Coles MD Primary Care Provide r Encounter Details Date Type Department Care Team (Late st Contact Info) Description 09/08/2024 Orders Only GENERIC EXTERNAL DATA DEPARTMENT Provider, Generic External Data Social History Tobacco Use Types Packs/Day Years Used Date Smoking Tobacco: Former Cigarettes 0.3 0.5 Passive Smoke Exposure: Past Smokeless Tobacco: Current Alcohol Use Standard Drinks/Week [...] Description 10/16/2024 11:00 AM EDT Office Visit [facility] [address] [place] [address] Za Coles MD [address] [place] [address] documented as of this encounter Procedures Procedure Name Priority Date/Time Associated Diagnosis Comments URINALYSIS, COMPLETE, WITH REFLEX TO CULTURE Routine 09/08/2024 7:41 PM EDT SARS COV2/INFLUENZA A/B AND RSV RNA QL NAAT Routine 09/08/2024 7:20 PM EDT CBC WITH AUTO DIFFERENTIAL Routine 09/08/2024 7:20 PM EDT LIPASE Routine 09/08/2024 7:20 PM EDT COMPREHENSIVE METABOLIC PANEL Routine 09/08/2024 7:20 PM EDT documented in this encounter Results * (ABNORMAL) Urinalysis, Complete, with Reflex to Culture (09/08/2024 7:41 PM EDT) Color Urine Yellow [facility] Appearance Urine Clear [facility] PH 5.5 5.0 - 9.0 [facility] Glucose Urine UA Negative Negative mg/dL [facility] Urine Blood Negative Negative [facility] Specific [place] - Urine 1.015 1.005 - 1.025 [facility] Urine Protein 30 (1+)(A) Neg-Trace mg/dL [facility] Urine Ketones Negative Negative mg/dL [facility] Nitrite Urine Negative Negative [facility] Leukocyte Esterase Urine Negative Negative [facility] RBC Urine 0-2 0 - 2 /HPF [facility] Urine WBC 0-5 0 - 5 /HPF [facility] Urine Squamous Epithelial Cell 0-2 0 - 2 /HPF [facility] Urine Bacteria None Seen None Seen [facility] Hyaline Casts, Urine 3-5 0 - 2 /LPF [facility] 09/08/2024 7:41 PM EDT 09/08/2024 7:45 PM EDT Narrative [facility] - 09/08/2024 7:56 PM EDT [id number], Clean Catch us Generic External Data Provider LAB URINE ORDERAB LES Final Result [facility] [address] [place] [phone] [phone] * SARS-CoV-2 RNA, Influenza A/B, and RSV RNA, Ql NAAT (09/08/2024 7:20 PM EDT) Influenza A PCR NEGATIVE Negative [facility] Influenza B PCR NEGATIVE Negative [facility] Resp Syncy Virus RNA Qual PCR NEGATIVE Negative [facility] SARS COV2 PCR NEGATIVE Negative [facility] Comment:All test results mus t [...] use by authorized laboratories.Testing performed on the [employer] GeneXpert utilizingreal-time RT-PCR.All SARS CoV2 and positive influenza A/B results arereported to [facility]. 09/08/2024 7:20 PM EDT 09/08/2024 7:24 PM EDT us Generic External Data Provider LAB MICROBIOLOGY - GENERAL ORDERABLES Final Result Performing Organization Address City/[facility]/ZIP Co de Phone Number [facility] [address] [place] [phone] * Lipase (09/08/2024 7:20 PM EDT) Lipase 21 8 - 78 U/L [facility] 09/08/2024 7:20 PM EDT 09/08/2024 7:24 PM EDT Generic External Data Provider LAB BLOOD ORDERAB LES Final Result Performing Organization Address [facility] Co de Phone Number [facility] [address] [place] [address] [phone] * (ABNORMAL) Comprehensive Metabolic Panel (09/08/2024 7:20 PM EDT) Sodium 141 135 - 145 mmol/L [facility] Potassium 4.2 3.3 - 5.1 mmol/L [facility] Chloride 105 96 - 108 mmol/L [facility] Carbon Dioxide 25 22 - 29 mmol/L [facility] Anion Gap 15 12 - 20 [facility] Urea Nitrogen (BUN) 17(H) 9 - 16 mg/dL [facility] Creatinine, Serum 0.73 0.5 - 1.4 mg/dL [facility] Creatinine Clr Calc Pharmacy 156.2 [facility] Comment:eGFR (calculated fro m the MDRD study equation) and eCrCl(calculated from the Cockcroft-Gault equation) are based ondifferent parameters and may not yield comparable results.If eCrCl result is absurd, please check patient'sheight/weight. Estimated Glomerular Filt Rate >60 [facility] Comment:Chronic Kidney Disea se: Estimated GFR < 60 mL/min/1.94u6Snmcyr Kidney Disease: Estimated GFR < 15 mL/min/1.73m2 Glucose 157(H) 60 - 115 mg/dL [facility] Calcium 10.1 8.4 - 10.2 mg/dL [facility] Bilirubin, Total 0.2 0.0 - 1.0 mg/dL [facility] Aspartate Amino Transferase 21 5 - 37 U/L [facility] Alanine Aminotransferase 42(H) 0 - 40 U/L [facility] Total Protein 8.3(H) 6.5 - 8.0 g/dL [facility] Albumin Level 4.4 3.5 - 5.0 g/dL [facility] Alkaline Phosphatase 115 39 - 117 U/L [facility] 09/08/2024 7:20 PM EDT 09/08/2024 7:24 PM EDT us Generic External Data Provider LAB BLOOD ORDERAB LES Final Result [facility] [address] [place] [phone] * (ABNORMAL) CBC auto differential (09/08/2024 7:20 PM EDT) White Blood Count 9.9 4.8 - 10.8 X10*3/uL [facility] Red Blood Count 5.38 4.60 - 5.80 X10*6/uL [facility] Hemoglobin 13.9(L) 14.0 - 18.0 g/dl [facility] Hematocrit 42.5 42.0 - 52.0 % [facility] Mean Corpuscular Volume 79.0(L) 80.0 - 98.0 fL [facility] Mean Corpuscular Hemoglobin 25.8(L) 27.0 - 33.0 pg [facility] Mean Corpuscular HGB Conc 32.7 31.0 - 36.0 g/dl [facility] Red Cell Distribution Width 14.9 11.0 - 16.0 % [facility] Platelet Count 257 160 - 400 X10*3/uL [facility] Mean Platelet Volume 9.7 9.4 - 12.4 fL [facility] Neutrophils Percent Auto 73.8(H) 45 - 73 % [facility] Imm Gran Pct Auto 0.3 0.0 - 0.4 % [facility] Lymphocytes Percent Auto 17.8(L) 20 - 40 % [facility] Monocytes Percent Auto 6.8 2 - 11 % [facility] Eosinophils Percent Auto 1.1 0 - 4 % [facility] Basophils Percent Auto 0.2 0 - 2 % [facility] NRBC Pct Auto 0.0 0.0 - 0.2 /100WBC [facility] Neutrophils Absolute Auto 7.3 2.0 - 8.3 x10*3/uL [facility] Imm Gran Abs Auto 0.03 0.00 - 0.03 X10*3/uL [facility] Lymphocytes Absolute Auto 1.8 1.2 - 4.9 X10*3/uL [facility] Monocytes Absolute Auto 0.7 0.1 - 1.2 X10*3/uL [facility] Eosinophils Absolute Auto 0.1 0.0 - 0.4 X10*3/uL [facility] Basophils Absolute Auto 0.0 0.0 - 0.2 X10*3/uL [facility] NRBC Abs Auto 0.000 0.0 - 0.012 X10*3/uL [facility] 09/08/2024 7:20 PM EDT 09/08/2024 7:24 PM EDT us Generic External Data Provider LAB BLOOD ORDERAB LES Final Result Performing Organization Address City/State/[facility] Co de Phone Number [facility] [address] [place] [phone] documented in this encounter Visit Diagnoses Not on filedocumented in this encounter Care Teams Marine Steward Relationship Specialty Start Date End Date Za Coles MD [address] [place] [phone] PCP - General Family Medicine 10/22/18 documented as of this encounter
[2024-09-08 22:14] VITALS: BP 155/91; PULSE 122; RESP 18; TEMP 37; O2SAT 98
[2024-09-08 22:37] VITALS: BP 155/91; PULSE 100; RESP 18; TEMP 37; O2SAT 98
== END 2024-09-08 22:41 | disposition home or self-care (01) ==
PROVIDERS: Physician Assistant; Emergency Provider Emergency Medicine Emergency Medical Services; PCP Internal Medicine
DX: R51.9 Headache, unspecified (principal); I10 Essential (primary) hypertension; E11.9 Type 2 diabetes mellitus without complications; Z03.818 Encounter for observation for suspected exposure to other biological agents ruled out
CPT/HCPCS: 0241U; 80053; 81001; 83690; 85025; 99283; 99284

== ENCOUNTER 2024-12-17 09:55 | Outpatient (REF) | payer MEDICAID, SELFPAY ==
--- NOTE | ~2024-12-17 | XR_ITS ---
EXAMINATION: XR CERVICAL SPINE CLINICAL INFORMATION: PAIN COMPARISON: None available. TECHNIQUE: AP, oblique, lateral and atlantoodontoid views. FINDINGS: Craniocervical junction is intact. S-shaped curvature with a reverse deformity apex at C5-6. Marginal osteophyte formation and endplate sclerosis, decreased intervertebral disc height at C5-6 and to a lesser extent C4-5 and C6-7 level. Grade 1 anterolisthesis C3-4. No acute cortical disruption. No lytic or blastic lesions. Right neuroforamina and narrowing at C4-5. Upper airway is patent. Edentulous, maxilla. 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
--- OUTSIDE RECORDS SUMMARY | 2024-12-17 10:24 | XMS_ITS ---
Author Organization [employer] [facility] Address [address] [place] [address] 7 [place] [address] Care Team Providers Care Import Specialist Name Role Phone Za Coles MD Primary Care Provide r CM Complex Status:Outreach In Progress (Enrolling) Start date:09/09/2024 Enrollment reason:ADT Feed Overview ED- Pt went to [facility] ED on 09/08/24. Case Team Name Relationship Phone Sylvain Anguiano RN(Responsible Staff) Registered Curry ybarra [phone] Continued Care and Services Coordination
== END 2024-12-17 09:56 | disposition home or self-care (01) ==
LOC: HO.HHCX 09:55
PROVIDERS: PCP Internal Medicine; Visit Provider Internal Medicine
DX: M54.2 Cervicalgia (principal)
CPT/HCPCS: 72050

== ENCOUNTER → 2024-12-17 10:00 | Outpatient (BNV) | payer MEDICAID, SELFPAY | PROVIDERS: PCP Internal Medicine; Visit Provider Radiology Diagnostic Radiology | DX: M50.222 Other cervical disc displacement at C5-C6 level (principal) | CPT/HCPCS: 72050 ==

== ENCOUNTER 2024-12-31 14:46 | Outpatient (AMB) | payer MEDICAID, SELFPAY ==
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
--- OUTSIDE RECORDS SUMMARY | 2024-12-31 14:51 | XMS_ITS ---
Author Organization [employer] [facility] Address [address] [place] [address] [address] [place] [address] Care Team Providers Care Leather Heel Breaster Name Role Phone Za Coles MD Primary Care Provide r CM Complex Status:Outreach In Progress (Enrolling) Start date:09/09/2024 Enrollment reason:ADT Feed Overview ED- Pt went to [facility] [place] on 09/08/24. Case Team Name Relationship Phone Sylvain Anguiano RN(Responsible Staff) Registered Curry ybarra [phone] Continued Care and Services Coordination
[2024-12-31 14:59] VITALS: BP 132/74; PULSE 96; O2SAT 96; BMI 26.4
== END 2024-12-31 15:18 | disposition home or self-care (01) ==
LOC: HO.HGI 14:47
PROVIDERS: PCP Internal Medicine; Visit Provider Nurse Practitioner
DX: K59.04 Chronic idiopathic constipation (principal); K21.9 Gastro-esophageal reflux disease without esophagitis; F11.20 Opioid dependence, uncomplicated; E73.9 Lactose intolerance, unspecified
CPT/HCPCS: 99213

== ENCOUNTER → 2024-12-31 14:46 | Outpatient (BNVA) | payer MEDICAID, SELFPAY | PROVIDERS: PCP Internal Medicine; Visit Provider Nurse Practitioner | DX: K59.04 Chronic idiopathic constipation (principal); K21.9 Gastro-esophageal reflux disease without esophagitis; F11.20 Opioid dependence, uncomplicated; E73.9 Lactose intolerance, unspecified | CPT/HCPCS: 99212 ==

== ENCOUNTER 2025-03-25 06:58 | Day surgery (SDC) | payer MEDICAID, SELFPAY ==
--- OUTSIDE RECORDS SUMMARY | 2025-03-02 19:51 | XMS_ITS ---
Author Organization [employer] Address [address] [place] [address] [address] [place] [address] Care Team Providers Care Glass Maker Name Role Phone Za Coles MD Primary Care Provide r CHW Complex Status:Outreach In Progress (Enrolling) Start date:09/09/2024 Enrollment reason:ADT Feed Overview ED- [place] [facility] [place]. Case Team Name Relationship Phone Precious Kaur(Responsible Staff) Continued Care and Services Coordination
--- OUTSIDE RECORDS SUMMARY | 2025-03-02 19:51 | XMS_ITS ---
Author Organization [employer] [facility] Address [address] [place] [address] [address] [place] [address] Care Team Providers Care Results Technician Name Role Phone Za Coles MD Primary Care Provide r CM Complex Status:Outreach In Progress (Enrolling) Start date:09/09/2024 Enrollment reason:ADT Feed Overview ED- Pt went to [facility] [place] [facility] on 09/08/24. Case Team Name Relationship Phone Sylvain Anguiano RN(Responsible Staff) Registered Curry ybarra [phone] Continued Care and Services Coordination
--- OUTSIDE RECORDS SUMMARY | 2025-03-02 19:51 | XMS_ITS | Clinical Summary ---
Author Organization [employer] Address [address] [place] [address] 7t [place] [address] Care Team Providers Care Leather Lacer Name Role Phone Za Coles MD Primary [...] for constipation. 30 tablet 3 5 Active famotidine (Pepcid) 20 MG tabletIndication s:Heartburn Take 1 tablet (20 mg) by mouth 2 times daily. 180 tablet 3 5 Active sertraline (Zoloft) 100 MG tabletIndication s:Anxiety TAKE 1 TABLET BY MOUTH EVERY DAY IN THE MORNING 90 tablet 1 5 Active albuterol (Ventolin HFA) 108 (90 Base) MCG/ACT inhalerIndicatio ns:Mild intermittent asthma without complication Inhale 2 puffs every 6 (six) hours if needed for wheezing. 18 g 2 5 Active sodium chloride (T[place] Nasal [place]) 0.65 % nasal sprayIndications :Nasal congestion Administer 1 spray into each nostril if needed for congestion. 30 mL 12 5 07/17/19 26 Active linaCLOtide (Linzess) 290 MCG capsuleIndicatio ns:Chronic constipation Take 1 capsule (290 mcg) by mouth before breakfast. Do not crush or chew. 30 capsule 3 5 12/18/19 26 Active lisinopril 5 MG tabletIndication s:Essential hypertension Take 1 tablet (5 mg) by mouth Once per day. 30 tablet 2 5 12/18/19 26 Active metFORMIN (Glucophage) 850 MG tabletIndication s:Type 2 diabetes mellitus with hyperglycemia, without long-term current use of insulin (HCC) TAKE 1 TABLET BY MOUTH TWICE A DAY WITH BREAKFAST AND DINNER 180 tablet 1 5 Active docusate sodium (Colace) 100 MG capsuleIndicatio ns:Chronic constipation TAKE 1 CAPSULE (100 MG) BY MOUTH EVERY 12 (TWELVE) HOURS. 180 capsule 5 Active hydrOXYzine HCl (Atarax) 50 MG tabletIndication s:Anxiety TAKE 1 TABLET (50 MG) BY MOUTH EVERY 12 (TWELVE) HOURS IF NEEDED FOR ITCHING. 60 tablet 2 5 Active Active Problems Problem Noted Date Diagnosed Date Neck pain 12/17/2024 Class 2 severe obesity due t o excess calories with serious comorbidity and body mass index (BMI) of 35.0 to 35.9 in adult 12/17/2024 Assessment & Plan (12/17/2024 10:12 AM EDT): Extensive counseling about healthy diet and exercise done today I refer patient to extension service supervisor Encounter for preventive care 07/16/2024 Assessment & [...] hernia 01/17/2023 S/P bilateral above knee amputation (CMS/HCC) Retained dental root 11/30/2022 Type 2 diabetes mellitus wit h hyperglycemia, without long-term current use of insulin 10/22/2022 Assessment & Plan (12/17/2024 10:12 AM EDT): Diabetes is: almost at goal - Lab Results Component Value Date HGBA1C 6.6 (A) 07/16/2024 HGBA1C 6.5 (A) 06/28/2023 HGBA1C 5.8 01/18/2023 - Lab Results Component Value Date CREATININE 0.73 09/08/2024 -Changes: Extensive counseling done today - Diabetic eye exam: Up-to-date - Diabetic foot exam: Does not apply - Continue lifestyle modifications - Continue current medications - Follow up: 3 months Assessment & Plan (07/16/2024 4:09 PM EST): [...] 07/06/2022 Chronic constipation 07/06/2022 Assessment & Plan (12/17/2024 10:13 AM EDT): I will prescribe for patient Linzess to 290 MCG daily, patient has been stable on this medication Assessment & Plan (07/16/2024 4:08 PM EST): Patient educated to add water and fiber to his diet Refill for his medications done today Follow-up with GI Epididymitis 07/06/2022 Essential hypertension 07/06/2022 Assessment & Plan (12/17/2024 10:11 AM EDT): I decided to add to his blood pressure medications lisinopril 5 mg, continue to take amlodipine 10 mg I also advised: - Aerobic exercise to reduce BP. Initial [...] consulting health care provider Assessment & Plan (07/16/2024 4:08 PM EST): [...] 08/31/2021 Kidney stone 01/22/2020 Chronic hepatitis C ([facility]/HCC) 01/09/2019 Assessment & Plan (12/17/2024 10:13 AM EDT): Patient already completed treatment Encounters Date Type Department Care Team Description 02/16/2025 Patient Outreach [facility] MEDICINE [address] [place] [address] Za Coles MD 02/09/2025 Telephone [facility] MEDICINE [address] [place] [address] Nutrition referral 01/28/2025 Refill [facility]INE [address] [place] [address] Za Coles MD Anxiety 01/14/2025 Refill [facility] MED[facility]INE [address] [place], [place] [phone] Ania Quintero FNP Chronic constipation 01/01/2025 Refill [facility] MED[facility]INE [address] [place] [address] Za Coles MD Type 2 diabetes mellitus with hyperglycemia, without long-term current use of insulin (CMS/HCC) 12/17/2024 9:00 AM EDT Office Visit [address] [address] Za Coles MD Type 2 diabetes mellitus with hyperglycemia, without long-term current use of insulin ([facility]); Essential hypertension; Amputation of right upper extremity through shoulder, subsequent encounter; Chronic hepatitis C without hepatic coma ([facility]); Dietary counseling; Exercise counseling; Neck pain; Chronic constipation; Class 2 severe obesity due to excess calories with serious comorbidity and body mass index (BMI) of 35.0 to 35.9 in adult ([facility]/HCC) 12/17/2024 Results Follow-Up [address] [address] Za Coles MD XR CERVICAL SPINE 4V 12/17/2024 Orders Only [address] [address] Za Coles MD 12/17/2024 Travel 12/09/2024 Patient Outreach [address] [address] Za Coles MD Pre-visit Planning (SDOH screening completed on 10/07/2024) from Last 3 Months Immunizations Immunization Administration Dates Next Due Pneumococcal Conjugate PCV [...] drink = 0.6 oz pur e alcohol) Depression Answer Date Recorded Patient Health Questionnaire-9 Score 0 12/17/2024 Patient Health Questionnaire-9 Score 0 12/17/2024 Last PHQ-9: Questionnaire Data Not on file 0 12/17/2024 Housing Stability Answer Date Recorded What is your housing situation today? I have amita mares 10/07/[address] you li ve. Do you have problems with any of the following? None of the above 10/07/2024 Food Insecurity Answer Date Recorded Within the past 12 months, y ou worried that your food would run out before you got money to buy more: Never True 10/07/2024 Within the past 12 months,th e food you bought just didn't last and you didn't have enough money to get more: Never True Transportation Answer Date Recorded In the past 12 months, has l ack of transportation kept you from medical appts, meetings, work or from getting things needed for daily living? No 10/07/2024 Utilities Answer Date Recorded In the past 12 months, has t he electric, gas, oil or water company threatened to shut off services in your home? No 10/07/2024 Depression Answer Date Recorded Patient Health Questionnaire-2 Score 0 12/17/2024 Internet Access Answer Date Recorded Internet Access Q1 Yes 10/07/2024 Internet Access Q2 Not on file 10/07/2024 Sex and Gender Information Value Date Recorded Sex Assigned at Male 03/12/2022 10:35 AM EDT Legal Sex Male 10:35 AM EDT Gender Identity Male 03/12/2022 10:35 AM EDT Sexual Orientation Choose not to disclose 2021 10:35 AM EDT Last Filed Vital Signs Vital Sign Reading Time Taken Comments Blood Pressure 144/84 12/17/2024 9:49 AM EDT Pulse 92 12/17/2024 9:28 AM EDT Temperature 37.1 C (98.8 F) 12/17/2024 9:28 AM EDT Respiratory Rate 18 12/17/2024 9:28 AM EDT Oxygen Saturation 99% 12/17/2024 9:28 AM EDT Inhaled Oxygen Concentration - - Weight 94.8 kg (209 lb) 12/17/2024 9:28 AM EDT Height 162.6 cm (5' 4 ) 12/17/2024 9:28 AM EDT Body Mass Index 35.87 12/17/2024 9:28 AM EDT Plan of Treatment Upcoming Encounters Date Type Department Care Team (Late st Contact Info) Description 03/22/2025 2:00 PM EST Nutrition [facility] DIABETES/NUTRITION [address] [place] [address] [place] [address] 03/25/2025 1:45 PM EST Office Visit [facility] MEDICINE [address] [place] [address] Za Coles MD [address] [place] [address] 06/22/2025 2:00 PM EST Office Visit [facility] OPTOMETRY [address] [place] [address] Jeff, Opal, OD [address] [place] [address] Health Maintenance Due Date Last Done Comments CT Colonography 1977 Colonoscopy 1977 Colorectal Cancer Screening 1977 FIT DNA/Cologuard 1977 FIT 1977 FOBT 1977 HIV Screening 1977 Lipid Panel 1977 Sigmoidoscopy 1977 Alcohol/Substance Use Screening 1989 Family Planning (PISQ) 1992 DTaP/Tdap/Td Vaccines (1 - Tdap) 1996 Diabetes: Urine Protein Screening 1996 Hepatitis A Vaccines (1 of 2 - Risk 2-dose series) 1996 Hepatitis B Vaccines (1 of 3 - 19+ 3-dose series) 1996 Pneumococcal Vaccine: Pediatrics (0 to 5 Years) and At-Risk Patients (6 to 49) Years (2 of 2 - PPSV23) 03/06/2019 01/09/2019 Dental X-Ray: Bitewings 07/08/2020 07/07/2019 Dental Oral Exam 03/31/2023 09/27/2022, 07/07/2019 Dental Prophylaxis 05/23/2024 11/20/2023 Eye Exam 11/23/2024 11/23/2022, 11/10, 11/23/2022, Additional history exists COVID-19 Vaccine ( - 2023- season) 2025 Influenza Vaccine (#1) 2025 Diabetes: Hemoglobin A1C 01/16/2025 025, 06/28/2023, 01/18/2023, Additional history exists Dental X-Ray: Full Mouth 09/28/2025 09/27/2022, 06/14 SDOH Screening 10/07/2025 10/07/2024 Depression Screening 12/17/2025 12/17/2024, 12/18/19 Disability Screening 12/17/2025 12/17/2024 Tobacco Screening 12/17/2025 12/17/2024 Zoster Vaccines (1 of 2) 08/03/2027 RSV Patients and Patients Aged 60 years or older (1 - 1-dose 75+ series) 2052 Diabetes: Foot Exam Discontinued HIB Vaccines Aged Out No longer eligi ble based on patient's age to complete this topic HPV Vaccines Aged Out No longer eligi ble based on patient's age to complete this topic IPV Vaccines Aged Out No longer eligi ble based on patient's age to complete this topic Meningococcal B Vaccine Aged Out No l onger eligible based on patient's age to complete [...] Procedure Name Priority Date/Time Associated Diagnosis Comments XR CERVICAL SPINE 4V Routine 12/17/2024 10:00 AM EDT POCT GLUCOSE Routine 12/17/2024 9:30 AM EDT Type 2 diabetes mellitus with hyperglycemia, without long-term current use of insulin ([facility]) POCT GLYCATED HEMOGLOBIN, TOTAL Routine 07/16/2024 1:23 PM EST Type 2 diabetes mellitus with hyperglycemia, without long-term current use of insulin ([facility]) PROPHYLAXIS - ADULT Routine 11/20/2023 1 :00 PM EDT Dental plaque Dental calculus PANORAMIC RADIOGRAPHIC IMAGE Routine 09/27/2022 1:30 PM EDT PERIODIC ORAL EVALUATION - ESTABLISHED PATIENT Routine 09/27/2022 1:30 PM EDT INTRAORAL - COMPLETE SERIES OF RADIOGRAPHIC IMAGES Routine 07/07/2019 12:00 AM EST from Last 3 Months or Most Recently Relevant to Health Maintenance Results * XR CERVICAL SPINE 4V (12/17/2024 10:00 AM EDT) Anatomical Region Laterality Modality Abdomen Radiographic Marie ging 12/17/2024 10:0 0 AM EDT Narrative 12/17/2024 11:00 AM EDT [address] [address] XRay Report Signed Patient: Willy Paniagua V MR#: [id number] : 1975 Acct:[id number] Age/Sex: 49 / M ADM Date: 12/17/24 Loc: HO.HHCX Attending Dr: Za Mackey MD Ordering Physician: Za Coles MD Date of Service: 12/17/24 Procedure(s): XR cervical spine 4V Accession Number(s): [id number] cc: Za Coles MD EXAMINATION: XR CERVICAL SPINE CLINICAL INFORMATION: PAIN COMPARISON: None available. TECHNIQUE: AP, oblique, lateral and atlantoodontoid views. FINDINGS: Craniocervical junction is intact. S-shaped curvature with a reverse deformity apex at C5-6. Marginal osteophyte formation and endplate sclerosis, decreased intervertebral disc height at C5-6 and to a lesser extent C4-5 and C6-7 level. Grade 1 anterolisthesis C3-4. No acute cortical disruption. No lytic or blastic lesions. Right neuroforamina and narrowing at C4-5. Upper airway is patent. Edentulous, maxilla. XR/XR cervical spine 4V IMPRESSION: Hamburg deformity apex at C5-6 Electronically signed by: Isrrael Donis MD 12/17/2024 10:58 AM EDT Dictated By: Isrrael Castaneda MD Signed By: <Electronically signed by Isrrael Dorado MD in OV> 12/17/24 1058 DD/ 1000 TD/TT: 12/17/24 1020 Reservation Agent: Procedure Note Donotuseinterpreter, Image - 12/17/[address] [address] XRay Report Signed Patient: Willy Paniagua R#: [id number] : 1975Acct:[id number] Age/Sex: 49 / MADM Date: 12/17/24 Loc: HO.HHCX Attending Dr: aZ Mackey MD Ordering Physician: Za Coles MD Date of Service: 12/17/24 Procedure(s): XR cervical spine 4V Accession Number(s): [id number] cc: Za Coles MD EXAMINATION: XR CERVICAL SPINE CLINICAL INFORMATION: PAIN COMPARISON: None available. TECHNIQUE: AP, oblique, lateral and atlantoodontoid views. FINDINGS: Craniocervical junction is intact. S-shaped curvature with a reverse deformity apex at C5-6. Marginal osteophyte formation and endplate sclerosis, decreased intervertebral disc height at C5-6 and to a lesser extent C4-5 and C6-7 level. Grade 1 anterolisthesis C3-4. No acute cortical disruption. No lytic or blastic lesions. Right neuroforamina and narrowing at C4-5. Upper airway is patent. Edentulous, maxilla. XR/XR cervical spine 4V IMPRESSION: Hamburg deformity apex at C5-6 Electronically signed by: Isrrael Donis MD 12/17/2024 10:58 AM EDT Dictated By: Isrrael Castaneda MD Signed By: <Electronically signed by Isrrael Dorado MDin OV> 12/17/24 1058 DD/ 1000 TD/TT: 12/17/24 1020 Reservation Agent: us Za Mackey MD IMG XR PROCEDURES Fin al Result * POCT Glucose (12/17/2024 9:30 AM EDT) Glucose Blood, POC 153 60 - 200 mg/dL Comment:random QC Media Lot # [id number] Lot# Expiration Date 860,097 Blood Capillary blood specimen / Unknown 12/17/2024 9:30 AM EDT us Za Mackey MD POINT OF CARE TEST EN TER/EDIT ORDERABLES Final Result * (ABNORMAL) POCT HGB A1C (07/16/2024 1:23 PM EST) Hemoglobin A1C 6.6(A) 4.0 - 6.0 % QC Media Lot # [id number] Lot# Expiration Date 635,[id number] Blood 07/16/2024 1:23 PM EST Za Mackey MD POINT OF CARE TEST EN TER/EDIT ORDERABLES Final Result from Last 3 Months or Most Recently Relevant to Health Maintenance Insurance [id number] [facility] MEDICAID STAND ADULT Care Teams Leather Lacer Relationship Specialty Start Date End Date Za Coles MD [address] [place] [id number] PCP - General Family Medicine 10/22/18
--- OUTSIDE RECORDS SUMMARY | 2025-03-02 19:51 | XMS_ITS | Encounter Summary ---
Author Organization [employer] Address [address] [facility] 7t [place] [address] Care Team Providers Care Brazing Machine Operator Automatic Name Role Phone Za Coles MD Primary Care Provide r Reason for Visit * Reason Comments Med Refill Encounter Details Date Type Department Care Team ([facility] st Contact Info) Description 05/04/2023 Refill [facility] MEDICINE [address] [place], [place] [phone] Za Coles MD [address] [place], [place] [phone] Anxiety Social History Tobacco Use Types Packs/Day [...] Info) Description 03/22/2025 2:00 PM EST Nutrition [facility] DIABETES/NUTRITION [address] [place] [address] Pati Mora, RD [address] [place] [address] 03/25/2025 1:45 PM EST Office Visit [facility] MEDICINE [address] [place] [address] Za Coles MD [address] [place] [address] 06/22/2025 2:00 PM EST Office Visit [facility] OPTOMETRY [address] [place] [address] Jeff, Opal, OD [address] [place] [address] documented as of this encounter Visit Diagnoses Diagnosis Anxiety Anxiety state, unspecified documented in this encounter Care Teams Brazing Machine Operator Automatic Relationship Specialty Start Date End Date Za Coles MD [address] [place] [address] PCP - General Family Medicine 10/22/18 documented as of this encounter
--- OUTSIDE RECORDS SUMMARY | 2025-03-02 19:51 | XMS_ITS | Encounter Summary ---
Author Organization [employer] Address [address] [place] [address] 7 [place] [address] Care Team Providers Care Hand Bobbin Cleaner Name Role Phone Za Coles MD Primary Care Provide r Reason for Visit * Reason Onset Date Comments Med Refill 06/01/2022 Encounter Details Date Type Department Care Team ([facility] st Contact Info) Description 06/01/2022 Telephone [facility] MEDICINE [address] [place], [place] [phone] Za Coles MD [address] [place], [place] [phone] Med Refill Social History Tobacco Use Types [...] on 05/31/22. * Telephone Encounter - Janet Rosa - 06/01/2022 1:00 PM EST Tc from pt requesting a med refill for Metformin 850mg to be sent to [facility]/pharmacy #[id number] - [place], [place] - [address] [facility] Please contact [phone] documented in this encounter Plan of Treatment Upcoming Encounters Date Type Department Care Team (Late st Contact Info) Description 03/22/2025 2:00 PM EST Nutrition [facility] DIABETES/NUTRITION [address] [place] [address] [place] [address] 03/25/2025 1:45 PM EST Office Visit [facility] MEDICINE [address] [place] [address] Za Coles MD [address] [place] [address] 06/22/2025 2:00 PM EST Office Visit [facility] OPTOMETRY [address] [place] [address] Opal Aguilar, OD [address] [place] [address] documented as of this encounter Visit Diagnoses Not on filedocumented in this encounter Care Teams Hand Bobbin Cleaner Relationship Specialty Start Date End Date Za Coles MD [address] [place] [address] PCP - General Family Medicine 10/22/18 documented as of this encounter
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
[2025-03-25 07:39] VITALS: BMI 25.1
[2025-03-25 07:51] VITALS: BP 125/74; PULSE 91; RESP 15; TEMP 37; O2SAT 96
--- NOTE | 2025-03-25 08:00 | MHC.SHP ---
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 Ast) History of Previous Operations: Relevant previous surgery/procedure and date(s) ( Mass of lower extremity History of amputation of right upper extremity S/P multiple system trauma surgery Hx of cystoscopy History of renal stent History of surgery of head S/P BKA (below knee amputation) bilateral) Allergies: Allergies Allergy/AdvReac Type Severity Reaction Status Date / Time No Known Allergies (No Known Allergy Verified 03/25/25 07:36 Allergies*) Review of Systems Sugical H&P ROS: Negative: Constitution, Cardiovascular, Respiratory, Neurological, Psychiatric, Hem-Onc, Allergic/Immunologic, Gastrointestinal, Genitourinary, Musculoskeletal, Integumentary, Endocrine and Eyes/Ears/Nose/Throat Exam Surgical H&P Exam: Normal: HEENT, Normal: Heart, Normal: Lungs, Normal: Extremities, Normal: Abdomen, Normal: Skin and Normal: Neurological Plan Diagnosis/Plan: Unchanged I have reviewed the history and physical and performed a pertinent physical examination on my patient. No changes have occurred unless specified. Time Spent With Patient Time: Total time managing care of this patient today ____ minutes.
[2025-03-25 08:03] LABS: Glucose, Whole Blood 90 mg/dL (60-115)
[2025-03-25] MEDS: Lactated Ringers 1,000 ML 100 ML IVCONT (08:03)
--- NOTE | 2025-03-25 09:15 | HO.OPN-COLON ---
Colonoscopy Operative Note Operative Note Date of Service: 03/25/25 Narrative: Operative Information Procedure Description: Colonoscopy Indication: Screening Anesthesia: MAC COLONOSCOPY Instrument: Olympus variable stiffness pediatric scope 190L Colonoscopy Monitoring: Vital signs and clinical assessment, continuous EKG monitoring, Pulse oximetry, Carbon Dioxide monitoring and blood pressure monitoring were done throughout the procedure. Colon withdrawal time was 9 minutes. Procedure: The patient was placed in the left lateral decubitis position and pre-procedure medications were administered. After a digital rectal examination of the ano-rectum, the video colonoscope was inserted into the rectum and advanced through the colon to the cecum/TI. The colonoscope was slowly withdrawn in a retrograde panoramic fashion and the colon mucosa was carefully examined including a retroflexed view of the rectum. Findings and interventions are described below. Procedure Difficulty: difficult, pressure applied, looping Findings: Terminal Ileum-not intubated Cecum:normal Ascending Colon: 4-6 mm sessile polyp removed with cold forceps Transverse Colon -normal Descending Colon:normal Sigmoid Colon: normal Rectum: Retroflexion with small internal hemorrhoids seen, grade I Anorectum - normal Intervention: cold forceps Colon preparation: [place] Bowel Preparation Scale Right colon; 1-2 Transverse colon: 2- Left colon; 2 (0 = Unprepared colon segment with mucosa not seen due to solid stool that cannot be cleared. 1 = Portion of mucosa of the colon segment seen, but other areas of the colon segment not well seen due to staining, residual stool and/or opaque liquid. 2 = Minor amount of residual staining, small fragments of stool and/or opaque liquid, but mucosa of colon segment seen well. 3 = Entire mucosa of colon segment seen well with no residual staining, small fragments of stool or opaque liquid) Impression and Post Procedure Diagnosis: colon polyp x 1 internal hemorrhoids Plan: High fiber diet leaflet Avoid straining at stool, epsom salts and sitz bath, anusol supps or cream Repeat Colonoscopy in 1 year due to fair prep on the right or earlier if clinically indicated Above findings were reviewed with the patient and relevant handouts were provided if indicated.
[2025-03-25 09:20] VITALS: BP 120/72; PULSE 75; RESP 16; TEMP 37.3; O2SAT 98
[2025-03-25 09:35] VITALS: BP 125/69; PULSE 100; RESP 16; TEMP 37.3; O2SAT 98
== END 2025-03-25 10:09 | disposition home or self-care (01) ==
PROVIDERS: PCP Internal Medicine; Visit Provider Internal Medicine Gastroenterology
PROC: 0DJD8ZZ Inspection of Lower Intestinal Tract, Via Natural or Artificial Opening Endoscopic (ICD-10-PCS; CPT 45378; principal; 2025-03-25 09:00)
DX: Z12.11 Encounter for screening for malignant neoplasm of colon (principal); Z83.719 Family history of colon polyps, unspecified; D12.2 Benign neoplasm of ascending colon; K64.0 First degree hemorrhoids; K59.04 Chronic idiopathic constipation; K21.9 Gastro-esophageal reflux disease without esophagitis; F19.11 Other psychoactive substance abuse, in remission; I10 Essential (primary) hypertension; J45.909 Unspecified asthma, uncomplicated; N10 Acute pyelonephritis; Z96.0 Presence of urogenital implants; N20.0 Calculus of kidney; Z87.442 Personal history of urinary calculi; F32.A Depression, unspecified; Z86.19 Personal history of other infectious and parasitic diseases; Z87.828 Personal history of other (healed) physical injury and trauma; Z79.891 Long term (current) use of opiate analgesic; Z79.899 Other long term (current) drug therapy; Z89.512 Acquired absence of left leg below knee; Z89.511 Acquired absence of right leg below knee; Z89.201 Acquired absence of right upper limb, unspecified level; Z98.890 Other specified postprocedural states; Z87.891 Personal history of nicotine dependence; Z56.0 Unemployment, unspecified
CPT/HCPCS: 45380; 82947; 88305; J2003; J2704; J3010

== ENCOUNTER → 2025-03-25 06:58 | Outpatient (BNV) | payer MEDICAID, SELFPAY | PROVIDERS: PCP Internal Medicine; Visit Provider Internal Medicine Gastroenterology | DX: Z12.11 Encounter for screening for malignant neoplasm of colon (principal); K63.5 Polyp of colon; K64.0 First degree hemorrhoids; Z91.199 Patient's noncompliance with other medical treatment and regimen due to unspecified reason | CPT/HCPCS: 45380 ==